=== PATIENT | female | born 1935 | race Caucasian/White ===

== ENCOUNTER 2016-10-21 08:38 | Inpatient (IN) | payer OTHER ==
--- NOTE | 2016-10-21 08:41 | EDPHY ---
H & P HPI/ROS: CHIEF COMPLAINT: LTA+, fall. HISTORY OF PRESENT ILLNESS: The patient is an 86-year-old female anticoagulated on Plavix and baby aspirin who presents via EMS as LTA+ after a mechanical fall this morning. The fall was witnessed by family and they report she was standing at the stove when she crumpled to the ground, striking her head. She did lose consciousness. Per EMS she was A&Ox1 on the way to the hospital. It is unsure if this is different from her baseline mentation. She does not remember the incident. She denies precipitating factors such as dizziness or chest pain. She is complaining of abdominal pain and neck pain. On arrival she is oriented to her name and can follow basic instructions. REVIEW OF SYSTEMS: Patient unable to provide a full review of systems. Source: EMS Exam Limitations: Clinical condition - Medical/Surgical History Other PMH: 1. Parkinson's. 2. Aortic stenosis. 3. Hypertension. 4. Coronary artery disease. 5. Hyperlipidemia. 6. Breast cancer. Surgical history. 1. Bilateral mastectomies with recent surgery for chest wall seroma. 2. Cholecystectomy. 3. Inguinal hernia. 4. TAVR. - Social History Smoking Status: Never smoked Alcohol Use: None Additional Social History: She lives with her . - Physical Exam Exam: General: Cervical collar in place. The patient is in no acute distress. The patient is alert. Bruce Coma Score is 15 . Head: 1cm c-shaped laceration lateral to left eye. Periorbital ecchymoses OS. No Ordoñez's sign. No raccoon eyes. Neck: Tender to palpation over the upper cervical spine. Trachea is midline. Cervical collar left in position. Eyes: PERRLA. EOMI. No subconjunctival hemorrhage. Ears nose and throat: Dry oral mucosa. No hemotympanum. Nares are patent and without clotted nasal blood. No dental injury or malocclusion. Airway is patent. Lungs: Clear anterolaterally. No rib tenderness, crepitus, or subcutaneous emphysema. Breath sounds are equal and audible bilaterally. No wheezes, rales , or rhonchi. Thorax: Nontender to palpation of ribcage, no crepitus. There is a surgical dressing in place covering the right upper anterior chest with a Morgan-Puri drain. Cardiac: Heart has regular rate and rhythm without murmur, rub, or gallop. Abdomen: Soft, nontender, and nondistended. No guarding or rebound. Bowel sounds are present. Back: No vertebral tenderness. Skin: Scattered yellow/blue ecchymoses over both lower extremities. Skin is warm and dry. Extremities: Skin tear to left lateral elbow, no pain with range of motion. No bony point tenderness with evaluation of all 4 extremities, hands, and feet. Pelvis is stable. Hips are nontender. Pulses: 2+ radial, femoral and dorsalis pedis pulses bilaterally. Neuro: The patient is alert and oriented to person. Sensation is intact to light touch over all 4 extremities. Strength is 4+ over 5 with testing of major motor groups. PERRLA. EOMI. Facial expressions symmetric. Hearing intact to spoken voice but she requires a louder than usual speaking voice. Tongue midline. Facial sensation intact to light touch. Shoulder shrug 5/5. Constitutional: Initial Vital Signs Temperature (C) 36.3 C 10/21/16 08:38 Heart Rate 66 10/21/16 08:38 Respiratory Rate 20 10/21/16 08:38 Blood Pressure 133/55 H 10/21/16 08:38 O2 Sat (%) 95 10/21/16 08:38 O2 Delivery Mode Room Air Allergies/Adverse Reactions: vancomycin Allergy (Severe, Verified 08/23/13 21:33) Tingling of mouth/throat Anise *RETIRED-07/04/12 [Anise] Allergy (Mild, Verified 07/31/11 14:27) SICK TO STOMACH mustard [Mustard] Allergy (Mild, Verified 07/31/11 14:27) SICK TO STOMACH diphenhydramine [Diphenhydramine] Allergy (Unknown, Verified 08/23/13 21:33) acetaminophen [From Chlor-Trimeton] Allergy (Verified 08/23/13 21:33) aspirin [Aspirin] Allergy (Verified 08/23/13 21:33) bacitracin [From Neosporin] Allergy (Verified 08/23/13 21:33) bacitracin zinc [From Neosporin] Allergy (Verified 08/23/13 21:33) cefaclor [From Ceclor] Allergy (Verified 08/23/13 21:33) chlorpheniramine [From Chlor-Trimeton] Allergy (Verified 08/23/13 21:33) chlorpheniramine maleate [From Co-Pyronil 2] Allergy (Verified 08/23/13 21:33) epoetin derick [From Epogen] Allergy (Verified 08/23/13 21:33) erythromycin base [Erythromycin Base] Allergy (Verified 08/23/13 21:33) gramicidin D [From Neosporin] Allergy (Verified 08/23/13 21:33) iodine [Iodine] Allergy (Verified 08/23/13 21:33) levofloxacin [From Levaquin] Allergy (Verified 08/23/13 21:33) mepivacaine HCl [From Carbocaine] Allergy (Verified 08/23/13 21:33) metformin HCl [From Glucophage XR] Allergy (Verified 08/23/13 21:33) naproxen [From Naprosyn] Allergy (Verified 08/23/13 21:33) neomycin sulfate [From Neosporin] Allergy (Verified 08/23/13 21:33) omeprazole [From Prilosec] Allergy (Verified 08/23/13 21:33) omeprazole magnesium [From Prilosec] Allergy (Verified 08/23/13 21:33) Penicillins Allergy (Verified 08/23/13 21:33) phenylpropanolamine HCl [From Chlor-Trimeton] Allergy (Verified 08/23/13 21:33) polymyxin B [From Neosporin] Allergy (Verified 08/23/13 21:33) polymyxin B sulfate [From Neosporin] Allergy (Verified 08/23/13 21:33) povidone-iodine [From Betadine] Allergy (Verified 08/23/13 21:33) prazosin HCl [From Minipress] Allergy (Verified 08/23/13 21:33) procaine [Procaine] Allergy (Verified 08/23/13 21:33) procaine HCl [From Novocain] Allergy (Verified 08/23/13 21:33) pseudoephedrine HCl [From Co-Pyronil 2] Allergy (Verified 08/23/13 21:33) soap [From Betadine] Allergy (Verified 08/23/13 21:33) sulfamethoxazole [From Bactrim] Allergy (Verified 08/23/13 21:33) trimethoprim [From Bactrim] Allergy (Verified 08/23/13 21:33) BANANAS Allergy (Severe, Uncoded 07/31/11 14:27) ASTHMA GLUTEN INTOL Allergy (Intermediate, Uncoded 07/31/11 14:30) UNCONTROLLABLE DIARRHEA/ACHE EGGS Allergy (Mild, Uncoded 07/31/11 14:27) ITCH/RED RASH All hyperthyroid medications Allergy (Uncoded 08/30/09 14:11) Home Medications: Medication Instructions Recorded Albuterol [Proventil Neb] 3 ml IH DAILY PRN 10/21/16 Aspirin [Aspirin 81mg (*)] 81 mg PO DAILY 10/21/16 Carbidopa/Levo Cr 25/100Mg 2 tab PO TID 10/21/16 [Sinemet CR 25/100 MG (*)] Carbidopa/Levo Cr 25/100Mg 3 tab PO DAILY 10/21/16 [Sinemet CR 25/100 MG (*)] Cholecalciferol Vit D3 [Vitamin D3 1,000 units PO BID 10/21/16 (*)] Clopidogrel Bisulfate [Clopidogrel] 75 mg PO DAILY 10/21/16 Docusate Sodium [Colace 100 MG (*)] 300 mg PO DAILY 10/21/16 Doxazosin Mesylate [Cardura 1 MG 1 mg PO HS 10/21/16 (*)] Furosemide [Lasix 40 MG (*)] 60 mg PO DAILY 10/21/16 Herbals/Supplements -Info Only 1 ea PO DAILY 10/21/16 Levothyroxine [Synthroid 100 mcg 100 mcg PO DAILY06 10/21/16 (*)] Losartan Potassium [Cozaar 50 mg 50 mg PO DAILY 10/21/16 (*)] Multivitamins [Multivitamin (*)] 1 each PO DAILY 10/21/16 Simvastatin [Zocor] 20 mg PO HS 10/21/16 amLODIPine BESYLATE [Norvasc 10 mg 10 mg PO HS 10/21/16 (*)] metFORMIN HCL [Glucophage 850 mg 850 mg PO BIDMEAL 10/21/16 (*)] Medical Decision Making - Diagnostics EKG Interpretation: The 12 lead EKG was interpreted by myself. See hard copy and/or "tracemaster" electronic copy for interpretation. Sinus rhythm, rate 66. Left bundle branch block. This is unchanged from July 2016. Imaging: Study: CT of the head. Indication: Trauma. Results: Bilateral diffuse intracranial subarachnoid hemorrhage The study was read by the radiologist, Dr. Chaudhry. I viewed the images myself on the PACS system. Study: CT of the cervical spine. Indication: Trauma. Results: No acute processes. The study was read by the radiologist, Dr. Chaudhry. I viewed the images myself on the PACS system. Lumbar spine x-ray negative for acute fracture Pelvic x-ray negative for acute fracture Chest x-ray negative for acute pulmonary disease, rib fracture, pneumothorax. Procedures: Procedure: Laceration repair. Verbal consent was obtained from the patient. The 1cm c-shaped laceration lateral to the left eye was anesthetized with 1% xylocaine. The wound was cleaned with standard ED protocol. There were no deep structures involved. The wound was repaired in single layer technique with five 6-0 Nylon sutures. The wound repair was simple. There was a 2nd superficial linear laceration above the left eyebrow that was revealed when the area was cleaned. This area did not require suturing but was oozing blood. Steri-Strips were applied. These procedures was performed by myself, Dr. Collado. ED Course/Re-evaluation: An IV was established and labs ordered. Head and c-spine CTs ordered. CT scan of the brain reveals bilateral subarachnoid hemorrhage. The patient underwent serial evaluations by me while in the emergency department. She had no deterioration in her neurologic condition, in fact her mental status and orientation improved. At no time did she complain of headache. She continued to be awake and alert. Although she never remembered the accident she was able to provide her name, state that she was in the hospital, and provide the year. She had normal strength throughout. Sensation was intact to light touch over all 4 extremities. Her pupils remained equal and responsive and her facial expressions were symmetric. Family members tell me that she is normally alert and fully oriented. Additional history from her family indicates that this fall was not witnessed. Her heard a noise when she landed on the ground. It is not known whether she had a syncopal episode. Review of her blood work shows that she is anemic with hemoglobin of 8.1 and hematocrit of just over 24. This will likely decrease with intravenous hydration, which she is receiving. As per HPI she is on Plavix and aspirin. She is not complaining of chest pain it seems unlikely that this was a primary cardiac event. Nor she complaining of headache, but aneurysmal subarachnoid hemorrhage is a possibility. Aside from a skin tear on her left elbow and subarachnoid hemorrhage, no other injuries have been identified at this point. 0856: Consulted with Dr. Meza, surgery. He will see the patient in the emergency department. He will be the admitting physician. 0919: Consulted with Dr. Piña, neurosurgery. Platelets requested and have been ordered. Differential Diagnosis: I considered a differential diagnosis of traumatic injury that includes but is not limited to intracranial hemorrhage, skull fracture, concussion, vertebral injury, spinal cord injury, intrathoracic injury, intra-abdominal injury, long bone fractures, contusions, abrasions, and lacerations. Critical Care Time: I, Dr. Emi Collado, personally spent a total of 45 minutes of critical care time including time spent obtaining a history, performing a physical exam, monitoring interventions, collecting and interpreting tests and in discussion with consultants. This does not include time spent performing procedures or physician security assistant time. She was at risk of neurologic deterioration. - Data Points Laboratory Results: Laboratory Results 10/21/16 08:41 10/21/16 08:41 10/21/16 09:00 Patient ABO/Rh O POSITIVE Antibody Screen NEGATIVE Crossmatch IS Only See Detail Medications Given: Discontinued Medications Levetiracetam 1,000 mg/ Sodium (Chloride) 110 mls @ 440 mls/hr IV ONCE ONE Stop: 10/21/16 09:42 Last Admin: 10/21/16 10:15 Dose: 110 mls Departure - Departure Disposition: [facility] Inpatient Acute Clinical Impression: Intracranial hemorrhage Fall Qualifiers: Qualifier Code: (W19.XXXA) Unspecified fall, initial encounter Condition: Fair Report Scribed for: Emi Collado Report Scribed by: Anders Simpson Date of Report: 10/21/16 Time of Report: 08:42
--- NOTE | 2016-10-21 08:59 | CPEKG ---
Heart Rate: 66 RR Interval: 909 P-R Interval: 192 QRSD Interval: 164 QT Interval: 472 QTC Interval: 495 P [place]: 67 QRS [place]: -15 T Wave [place]: 128 EKG Severity - ABNORMAL ECG - EKG Impression: SINUS RHYTHM EKG Impression: PROBABLE LEFT ATRIAL ABNORMALITY EKG Impression: LEFT BUNDLE BRANCH BLOCK Electronically Signed By: Emi Collado 21-Oct-2016 16:10:56
[2016-10-21 09:02] LABS: % IMMATURE GRANULYOCYTES 0.5 % (0.0-1.1); ABSOLUTE IMMATURE GRANULOCYTES 0.04 10^3/uL (0.00-0.10); ADD DIFF? NO; ADD MORPH? NO; ADD SCAN? NO; ATYPICAL LYMPHOCYTE FLAG 0 (0-99); FRAGMENT RBC FLAG 0 (0-99); HEMATOCRIT 24.4 % (38.0-47.0); HEMOGLOBIN 8.1 g/dL (12.6-16.3); LEFT SHIFT FLG 0 (0-99); LIPEMIA HEMOLYSIS FLAG 80 (0-99); MEAN CELL HEMOGLOBIN 34.6 pg (27.9-34.1); MEAN CELL HEMOGLOBIN CONCENTR. 33.2 g/dL (32.4-36.7); MEAN CELL VOLUME 104.3 fL (81.5-99.8); MEAN PLATELET VOLUME 9.6 fL (8.7-11.7); PLATELET CLUMPS FLAG 10 (0-99); PLATELET COUNT 176 10^3/uL (150-400); RED BLOOD CELL COUNT 2.34 10^6/uL (4.18-5.33); RED CELL DISTRIBUTION WIDTH 12.9 % (11.5-15.2)
[2016-10-21 09:12] LABS: ALANINE AMINOTRANSFERASE 25 IU/L (9-52); ALBUMIN 3.3 g/dL (3.5-5.0); ALKALINE PHOSPHATASE 65 IU/L (38-126); ANION GAP 9 mEq/L (8-16); ASPARTATE AMINOTRANSFERASE 28 IU/L (14-46); BILIRUBIN,TOTAL 0.7 mg/dL (0.1-1.4); CALCIUM 9.4 mg/dL (8.5-10.4); CARBON DIOXIDE 26 mEq/l (22-31); CHLORIDE 103 mEq/L (97-110); CREATININE 1.2 mg/dL (0.6-1.0); GLOMERULAR FILTRATION RATE 43; GLUCOSE 167 mg/dL (70-100); POTASSIUM 4.4 mEq/L (3.5-5.2); SODIUM 138 mEq/L (134-144)
--- NOTE | 2016-10-21 09:12 | CT ---
CT Scan of Head (Without Contrast) Clinical Indications: Trauma. Technique: Axial CT images were acquired from foramen magnum through vertex, without intravenous con trast. Soft tissue and bone windows were reviewed on the computer workstation. Images were reconstr ucted down to 1.25 mm images. Dose reduction techniques were utilized. Findings: There is a scalp hematoma over the left lateral scalp. There is diffuse subarachnoid hemorr bhargavi. I see no evidence of an epidural hematoma. There is hyperostosis of the skull without evidence of a skull fracture. The mastoid air cells and middle ear are clear. The sinuses are clear, except fo r complete opacification of the right maxillary sinus. I see no evidence of a facial fracture. Impression: 1. Diffuse subarachnoid hemorrhage. 2. Left scalp hematoma. 3. Left maxillary sinus disease without associated fracture. Critical results relayed by Dr. Chaudhry to Dr. Collado on October 21, 2016 at 0905 hours.
--- NOTE | 2016-10-21 09:13 | CT ---
CT Scan of the Cervical Spine (Without Contrast) Clinical Indications: Trauma. Technique: Thinly collimated multidetector helical CT imaging of the cervical spine was reviewed in multiple planes. Dose reduction techniques were utilized. Findings: No fractures are found. There is mild loss of the normal cervical lordosis. There are mul tilevel degenerative changes. There is bone on bone degenerative disk disease at C5-C6. There is mode rate to severe joint space narrowing at C6-C7. Bilateral facet osteoarthritic changes are present. Th ere is no evidence of acute fracture. Impression: 1. Mild loss of normal cervical lordosis. 2. Moderate to severe degenerative disk disease of the lower cervical spine, as described above. 3. Multilevel facet osteoarthritis. Critical results relayed by Dr. Chaudhry to Dr. Collado on October 21, 2016 at 0900 hours.
[2016-10-21 09:14] LABS: INR 1.11 (0.83-1.16); PROTIME(PATIENT) 14.2 SEC (12.0-15.0)
[2016-10-21] MEDS ORDERED: NALOXONE HCL 0.4 MG/ML INJ IVP PRN (09:28)
[2016-10-21] MEDS ORDERED: ONDANSETRON 4 MG/2 ML VIAL IVP PRN (09:28)
[2016-10-21] MEDS ORDERED: levETIRAcetam 1,000 MG in NS 100 ML IV ONE (09:28)
[2016-10-21] MEDS ORDERED: ACETAMINOPHEN 325 MG TAB PO PRN (09:28)
[2016-10-21] MEDS ORDERED: ALBUTEROL 3 ML DEYVIAL IH PRN (09:47)
--- NOTE | 2016-10-21 09:50 | PDGENHP ---
History and Physical - Chief Complaint fall from standing height with loss of consciousness - History of Present Illness 81 y/o female who fell in her kitchen. Her heard her fall and found her unconscious. She was transported by paramedics as a "limited plus" trauma activation. She has subsequently regained consciousness and reports a mild headache and mild low back pain. History Information - Allergies/Home Medication List Allergies/Adverse Reactions: vancomycin Allergy (Severe, Verified 08/23/13 21:33) Tingling of mouth/throat Anise *RETIRED-07/04/12 [Anise] Allergy (Mild, Verified 07/31/11 14:27) SICK TO STOMACH mustard [Mustard] Allergy (Mild, Verified 07/31/11 14:27) SICK TO STOMACH diphenhydramine [Diphenhydramine] Allergy (Unknown, Verified 08/23/13 21:33) acetaminophen [From Chlor-Trimeton] Allergy (Verified 08/23/13 21:33) aspirin [Aspirin] Allergy (Verified 08/23/13 21:33) bacitracin [From Neosporin] Allergy (Verified 08/23/13 21:33) bacitracin zinc [From Neosporin] Allergy (Verified 08/23/13 21:33) cefaclor [From Ceclor] Allergy (Verified 08/23/13 21:33) chlorpheniramine [From Chlor-Trimeton] Allergy (Verified 08/23/13 21:33) chlorpheniramine maleate [From Co-Pyronil 2] Allergy (Verified 08/23/13 21:33) epoetin derick [From Epogen] Allergy (Verified 08/23/13 21:33) erythromycin base [Erythromycin Base] Allergy (Verified 08/23/13 21:33) gramicidin D [From Neosporin] Allergy (Verified 08/23/13 21:33) iodine [Iodine] Allergy (Verified 08/23/13 21:33) levofloxacin [From Levaquin] Allergy (Verified 08/23/13 21:33) mepivacaine HCl [From Carbocaine] Allergy (Verified 08/23/13 21:33) metformin HCl [From Glucophage XR] Allergy (Verified 08/23/13 21:33) naproxen [From Naprosyn] Allergy (Verified 08/23/13 21:33) neomycin sulfate [From Neosporin] Allergy (Verified 08/23/13 21:33) omeprazole [From Prilosec] Allergy (Verified 08/23/13 21:33) omeprazole magnesium [From Prilosec] Allergy (Verified 08/23/13 21:33) Penicillins Allergy (Verified 08/23/13 21:33) phenylpropanolamine HCl [From Chlor-Trimeton] Allergy (Verified 08/23/13 21:33) polymyxin B [From Neosporin] Allergy (Verified 08/23/13 21:33) polymyxin B sulfate [From Neosporin] Allergy (Verified 08/23/13 21:33) povidone-iodine [From Betadine] Allergy (Verified 08/23/13 21:33) prazosin HCl [From Minipress] Allergy (Verified 08/23/13 21:33) procaine [Procaine] Allergy (Verified 08/23/13 21:33) procaine HCl [From Novocain] Allergy (Verified 08/23/13 21:33) pseudoephedrine HCl [From Co-Pyronil 2] Allergy (Verified 08/23/13 21:33) soap [From Betadine] Allergy (Verified 08/23/13 21:33) sulfamethoxazole [From Bactrim] Allergy (Verified 08/23/13 21:33) trimethoprim [From Bactrim] Allergy (Verified 08/23/13 21:33) BANANAS Allergy (Severe, Uncoded 07/31/11 14:27) ASTHMA GLUTEN INTOL Allergy (Intermediate, Uncoded 07/31/11 14:30) UNCONTROLLABLE DIARRHEA/ACHE EGGS Allergy (Mild, Uncoded 07/31/11 14:27) ITCH/RED RASH All hyperthyroid medications Allergy (Uncoded 08/30/09 14:11) Home Medications: Albuterol [Proventil Neb] 3 ml IH DAILY PRN 10/21/16 [Last Taken 10/20/16] Aspirin [Aspirin 81mg (*)] 81 mg PO DAILY 10/21/16 [Last Taken 10/20/16] Carbidopa/Levo Cr 25/100Mg [Sinemet CR 25/100 MG (*)] 2 tab PO TID 10/21/16 [ Last Taken 10/20/16] Carbidopa/Levo Cr 25/100Mg [Sinemet CR 25/100 MG (*)] 3 tab PO DAILY 10/21/16 [ Last Taken 10/20/16] Cholecalciferol Vit D3 [Vitamin D3 (*)] 1,000 units PO BID 10/21/16 [Last Taken 10/20/16] Clopidogrel Bisulfate [Clopidogrel] 75 mg PO DAILY 10/21/16 [Last Taken 10/20/16 ] Docusate Sodium [Colace 100 MG (*)] 300 mg PO DAILY 10/21/16 [Last Taken ] Doxazosin Mesylate [Cardura 1 MG (*)] 1 mg PO HS 10/21/16 [Last Taken 10/20/16] Furosemide [Lasix 40 MG (*)] 60 mg PO DAILY 10/21/16 [Last Taken 10/20/16] Herbals/Supplements -Info Only 1 ea PO DAILY 10/21/16 [Last Taken Unknown] Levothyroxine [Synthroid 100 mcg (*)] 100 mcg PO DAILY06 10/21/16 [Last Taken ] Losartan Potassium [Cozaar 50 mg (*)] 50 mg PO DAILY 10/21/16 [Last Taken ] Multivitamins [Multivitamin (*)] 1 each PO DAILY 10/21/16 [Last Taken 10/20/16] Simvastatin [Zocor] 20 mg PO HS 10/21/16 [Last Taken 10/20/16] amLODIPine BESYLATE [Norvasc 10 mg (*)] 10 mg PO HS 10/21/16 [Last Taken ] metFORMIN HCL [Glucophage 850 mg (*)] 850 mg PO BIDMEAL 10/21/16 [Last Taken 18:00] I have personally reviewed and updated: medical history, social history, surgical history - Past Medical History coronary artery disease, hypertension, hyperlipidemia Additional medical history: Parkinon's disease, aortic stenosis - Surgical History Reports: cholecystectomy, colectomy, hernia repair, mastectomy (bilateral, most recent in 2012/recent excision of right chest wall seroma with FENG indwelling) - Social History Smoking Status: Never smoked Alcohol Use: None Drug Use: None Additional social history: lives with her Oscar/requests full COR status Review of Systems Constitutional: Reports: recent illness (recent surgery for right chest wall seroma), weakness EENMT: Reports: blurred vision, double vision Cardiac: Reports: chest pain Respiratory: Reports: shortness of breath Gastrointestinal: Reports: black stools, blood streaked stools Genitourinary: Reports: hematuria, incontinence Muscolosketal: Reports: back pain Neurological: Reports: tremors (related to Parkinson's) Hematologic/Lymphatic: Reports: anemia (HCT 26% after recent surgery) Physical Exam Temp Pulse Resp BP Pulse Ox 36.3 C 66 20 133/55 H 95 10/21/16 08:38 10/21/16 08:38 10/21/16 08:38 10/21/16 08:38 10/21/16 08:38 Constitutional: chronically ill appearing, uncomfortable Eyes: PERRL Ears, Nose, Mouth, Throat: ears appear normal, other (no hemotympanum/1 cm lac left lateral orbital area) Peripheral Pulses: 2+: dorsalis-pedis (R), dorsalis-pedis (L), 3+: carotid (R), carotid (L), femoral (R), femoral (L) Respiratory: no respiratory distress, clear to auscultation Gastrointestinal: normoactive bowel sounds, soft, non-tender abdomen Skin: warm, other (right chest wall incision/bandaged with serosanguinous FENG drainage) Musculoskeletal: generalized weakness Neurologic: sensation intact bilaterally, weakness, CN II-XII Intact, other ( amnestic for event/oriented to place and person) Psychiatric: interacting appropriately Lymph, Heme, Immunologic: no cervical LAD, no supraclavicular LAD Lab Data & Imaging Review 10/21/16 08:41 10/21/16 08:41 WBC 7.47 10^3/uL (3.80-9.50) 10/21/16 08:41 RBC 2.34 10^6/uL (4.18-5.33) L 10/21/16 08:41 Hgb 8.1 g/dL (12.6-16.3) L 10/21/16 08:41 POC Hgb 8.2 gm/dL (12.3-15.9) L 10/21/16 08:42 Hct 24.4 % (38.0-47.0) L 10/21/16 08:41 POC Hct 24 % (35.5-47.5) L 10/21/16 08:42 MCV 104.3 fL (81.5-99.8) H 10/21/16 08:41 MCH 34.6 pg (27.9-34.1) H 10/21/16 08:41 MCHC 33.2 g/dL (32.4-36.7) 10/21/16 08:41 RDW 12.9 % (11.5-15.2) 10/21/16 08:41 Plt Count 176 10^3/uL (150-400) 10/21/16 08:41 MPV 9.6 fL (8.7-11.7) 10/21/16 08:41 Neut % (Auto) 78.9 % (39.3-74.2) H 10/21/16 08:41 Lymph % (Auto) 12.6 % (15.0-45.0) L 10/21/16 08:41 [place] % (Auto) 4.8 % (4.5-13.0) 10/21/16 08:41 Eos % (Auto) 2.7 % (0.6-7.6) 10/21/16 08:41 Baso % (Auto) 0.5 % (0.3-1.7) 10/21/16 08:41 Nucleat RBC Rel Count 0.0 % (0.0-0.2) 10/21/16 08:41 Absolute Neuts (auto) 5.89 10^3/uL (1.70-6.50) 10/21/16 08:41 Absolute Lymphs (auto) 0.94 10^3/uL (1.00-3.00) L 10/21/16 08:41 Absolute Monos (auto) 0.36 10^3/uL (0.30-0.80) 10/21/16 08:41 Absolute Eos (auto) 0.20 10^3/uL (0.03-0.40) 10/21/16 08:41 Absolute Basos (auto) 0.04 10^3/uL (0.02-0.10) 10/21/16 08:41 Absolute Nucleated RBC 0.00 10^3/uL (0-0.01) 10/21/16 08:41 Immature Gran % 0.5 % (0.0-1.1) 10/21/16 08:41 Immature Gran # 0.04 10^3/uL (0.00-0.10) 10/21/16 08:41 PT 14.2 SEC (12.0-15.0) 10/21/16 08:41 INR 1.11 (0.83-1.16) 10/21/16 08:41 POC Sodium 139 mEq/L (134-144) 10/21/16 08:42 Sodium 138 mEq/L (134-144) 10/21/16 08:41 POC Potassium 4.2 mEq/L (3.3-5.0) 10/21/16 08:42 Potassium 4.4 mEq/L (3.5-5.2) 10/21/16 08:41 POC Chloride 102 mEq/L (96-108) 10/21/16 08:42 Chloride 103 mEq/L (97-110) 10/21/16 08:41 Carbon Dioxide 26 mEq/l (22-31) 10/21/16 08:41 Anion Gap 9 mEq/L (8-16) 10/21/16 08:41 POC BUN 36 mg/dL (7-23) H 10/21/16 08:42 BUN 40 mg/dL (7-23) H 10/21/16 08:41 Creatinine 1.2 mg/dL (0.6-1.0) H 10/21/16 08:41 POC Creatinine 1.4 mg/dL (0.6-1.2) H 10/21/16 08:42 Estimated GFR 43 10/21/16 08:41 Glucose 167 mg/dL (70-100) H 10/21/16 08:41 POC Glucose 178 mg/dL (70-100) H 10/21/16 08:42 Calcium 9.4 mg/dL (8.5-10.4) 10/21/16 08:41 Total Bilirubin 0.7 mg/dL (0.1-1.4) 10/21/16 08:41 AST 28 IU/L (14-46) 10/21/16 08:41 ALT 25 IU/L (9-52) 10/21/16 08:41 Alkaline Phosphatase 65 IU/L (38-126) 10/21/16 08:41 Total Protein 6.0 g/dL (6.3-8.2) L 10/21/16 08:41 Albumin 3.3 g/dL (3.5-5.0) L 10/21/16 08:41 Patient ABO/Rh O POSITIVE 10/21/16 09:00 Visualized and Interpreted Chest x-ray results: Yes Chest X-Ray results: other (mild cardiomegaly/no fracture or pneumothorax) Visualized and Interpreted EKG results: No Assessment & Plan Assessment: Fall (Acute) Intracranial hemorrhage (Acute) anticoagulation with Plavix/ASA Hx Coronary stent Hx breast cancer with recent excision of mastectomy seroma right chest wall Parkinson's disease Anemia HTN Hypothyroidism Hyperlipidemia Hx Aortic Stenosis Plan: Patient to be admitted to ICU for neuromonitoring neurosurgery aware and has requested 10 units of platlets monitor H/H-will likely need transfusion if Hgb < [address] Radford notified of patient admission for surgical follow up continue prior meds/Hold ASA + Plavix
[2016-10-21] MEDS ORDERED: NS 1,000 ML IV SCH (10:30)
[2016-10-21] MEDS: FAMOTIDINE 20 MG/NACL 50 ML IV SCH ×2 (10:45→23:15)
--- NOTE | 2016-10-21 10:45 | DX ---
Supine AP chest x-ray 0930 hours. History: Right flank bruising after fall. Findings: Comparison to August 10, 2014. Heart size remains mildly enlarged. Pulmonary vasculature is mildly prominent centrally. There is no new consolidation, effusion, or pneumothorax. [place] are seen over the right chest wall as well as a drain in place. Cardiac stent as well as coronary stent are noted. Arteriosclerotic calcification is stable at the aortic arch level. No fractures are appreciated. Moderate degenerative changes are see n about the shoulder joints stable in appearance. Impression: 1. No active cardio pulmonary disease seen. 2. No evidence of acute fracture about the chest. 3. Stable mild cardiomegaly with left coronary stent as well as cardiac stent in place.
--- NOTE | 2016-10-21 10:46 | DX ---
Supine pelvis 0932 hours. History: Recent fall. Pain. Findings: Osseous structures appear to be intact without evidence of fracture. Hip joint spaces are r elatively well-maintained. SI joints and symphysis also appear to be normal. There are no lytic or sc lerotic osseous lesions. Soft tissues are unremarkable. Impression: 1. No acute fracture seen about the pelvis.
--- NOTE | 2016-10-21 10:51 | DX ---
Lumbar spine AP lateral 0935 hours. History: Mid back tenderness after fall. Findings: Vertebral body heights are well-maintained. There is about 4 mm of anterior subluxation of L3 on L4. No additional subluxations are appreciated. Mild intervertebral disk space narrowing is pre sent from L1-L2 through L4-L5 with associated marginal osteophytes. Mild facet hypertrophy is suspect ed mid to lower lumbar spine. There are no lytic or sclerotic osseous lesions. No fractures are ident ified. Bowel anastomotic sutures are noted projected over the right upper iliac fossa. Moderate ather osclerotic calcifications are present. Impression: 1. No acute osseous abnormality appreciated of the lumbar spine. 2. Mild degenerative disk disease mid lumbar spine with associated marginal osteophytes. 3. Mild facet hypertrophy lower lumbar spine. 4. Incidental 4 mm of anterior subluxation of L3 on L4. This is probably related to facet hypertrophy .
[2016-10-21] MEDS ORDERED: FAMOTIDINE 20 MG/NACL/50 ML BAG IV ONE (10:54)
--- NOTE | 2016-10-21 11:46 | CT ---
CT Brain Without Contrast 1128 hours History: Followup intracranial hemorrhage.. Technique: Axial computed tomographic images of the brain without contrast. Images were reconstruct ed down to 1.25 mm slice thickness. Dose reduction techniques were utilized. Comparison prior study from October 21, 2016. Findings: Moderate subarachnoid hemorrhage is once again seen over the frontal and parietal lobes bi laterally left side more than right as well as over the left lateral temporal lobe with some decrease in subarachnoid hemorrhage over the basal cisterns since the prior study. No intraventricular hemorr bhargavi or intraparenchymal hemorrhage is seen. There are no subdural collections. Ventricles, cisterns, and sulci are widened consistent with stable mild atrophy. No hydrocephalus, ma sses, or midline shift/herniation. Stable mild to moderate hypodensities are seen in the white matter of bilateral cerebral hemispheres. There is no acute peripheral cerebral infarct seen. Arterioscle rotic calcifications are noted associated with distal ICA in the parasellar location bilaterally. Bone windows demonstrate no displaced fractures. There is stable heterogeneous partially calcified and material in the right maxillary sinus. The [place] of the paranasal sinuses remain clear as well as mastoid air cells. Impression: 1. Stable mild age related atrophy. 2. Subarachnoid hemorrhage in a stable distribution over the frontal and parietal lobes slightly more prominent on the left as well as over the left temporal lobe. Consider CT angiogram of the [place] at some point to evaluate for possible aneurysm. 3. Mild to moderate stable nonspecific hypodensities in the white matter of bilateral cerebral hemisp heres. Differential diagnosis includes microvascular ischemic disease, post-infectious/post-inflammat ory sequela, atypical demyelinating disease, or migraine-related sequela. 4. Stable complex right maxillary sinus disease.
[2016-10-21 12:59] LABS: HEMATOCRIT 22.3 % (38.0-47.0); HEMOGLOBIN 7.4 g/dL (12.6-16.3)
--- NOTE | 2016-10-21 14:40 | GCON ---
[f rep st] CONSULTATION NEUROSURGERY CONSULTATION CHIEF COMPLAINT: Fall with loss of consciousness. HISTORY OF PRESENT ILLNESS: The patient is an 81-year-old female patient who fell in her kitchen. Her states that he was in the room and heard a loud thud and found her on the floor unconscious. She was transported to the emergency room. Patient regained consciousness while in the emergency room. The patient was complaining of headache and also some slight posterior neck pain. She had a rigid cervical collar on. She denied any numbness or tingling. No nausea, vomiting, or other associated symptoms. Much of the patient's medical information is obtained from the medical record. ALLERGIES: Vancomycin, anise, mustard, Benadryl, acetaminophen, aspirin, bacitracin, cefaclor, chlorpheniramine, Epogen, erythromycin, gramicidin D from Neosporin, iodine, Levaquin, mepivacaine, metformin, naproxen, neomycin, omeprazole, penicillin, polymyxin B from Neosporin, polymyxin B sulfate, iodine , Minipress, procaine, pseudoephedrine, soap, sulfa, Bactrim, bananas, gluten, eggs, all hyperthyroid medications. HOME MEDICATIONS: Include albuterol, aspirin, carbidopa/levodopa, vitamin D3, Clopidogrel, docusate, doxazosin, Lasix, herbals, levothyroxine, losartan, multivitamin, simvastatin, amlodipine, metformin. PAST MEDICAL HISTORY: Significant for coronary artery disease, hypertension, hyperlipidemia, Parkinson disease, aortic stenosis. SURGICAL HISTORY: Cholecystectomy, colectomy, hernia repair, mastectomy. SOCIAL HISTORY: The patient is a nonsmoker. Does not drink alcohol. She lives at home with her . No drug use. REVIEW OF SYSTEMS: Please see above mentioned in the HPI. PHYSICAL EXAMINATION: VITAL SIGNS: Blood pressure 122/53, heart rate 67, respirations 16, O2 sat 96% on room air. Temperature is 36.8. GENERAL: This is a well-developed, well-nourished, elderly female patient in no acute distress. She is lying on a stretcher in the trauma room. She has a trauma cervical collar in place. She moves all extremities independently. NEUROLOGIC : Cranial nerves 2-12 are grossly intact. Patient's eyes are PERRLA. Her extraocular movements are intact. Sclerae are anicteric. She has intact sensation over her face. Her facial movements are symmetric, no facial droop noted. Her tongue protrudes midline. Her palate and uvula elevate symmetrically. She has intact hearing to conversation. She has a symmetric shoulder shrug bilaterally. Motor examination of bilateral upper extremities is 5/5 for deltoid, triceps, biceps, and hand substance abuse nurse and also 5/5 for bilateral lower extremities including hip flexion, flexion and extension of the knee and plantar and dorsiflexion. She has intact sensation throughout the normal dermatomal distribution of her body. LABORATORY: White blood cells 7.4, red blood cells 2.3, hemoglobin 8, hematocrit 24, MCV 104, MCH 34, RDW 12.9, platelet count 176. PT 14.2. INR 1.11. Sodium 139, potassium 4.2, chloride 102, carbon dioxide 26, anion gap 9, BUN 36, creatinine 1.4, GFR 43, glucose 178. IMAGING: Cervical spine CT: Mild loss of normal cervical lordosis. Moderate to severe degenerative disc disease of the lower cervical spine as described above. Multilevel facet osteoarthritis. Head CT without contrast from 8:43 am: Diffuse subarachnoid hemorrhage. Left scalp hematoma. Left maxillary sinus disease without associated fracture. EKG: Sinus rhythm, probable left atrial abnormality left bundle branch block. Chest x-ray: No active cardiopulmonary disease. Seen no evidence of acute fracture about the chest. Stable mild cardiomegaly with left coronary stent as well as cardiac stents in place. Lumbar spine x-ray: No acute osseous abnormality appreciated in the lumbar spine. Mild degenerative disc disease mid lumbar spine with associated marginal osteophytes, mild facet hypertrophy lower lumbar spine, and incidental 4 mm of anterior subluxation of L3 on L4. This is probably related to facet hypertrophy. Pelvis x-ray: No acute fracture seen about the pelvis. Repeat head CT at 11:00 am: Stable mild age-related atrophy. Subarachnoid hemorrhage in a stable distribution over the frontal and parietal lobes slightly more prominent on the left as well as over the left temporal lobe. Consider CT angiogram of the [place] at some point to evaluate for possible aneurysm. [id number] stable nonspecific hypodensities in the white matter of bilateral cerebral hemispheres. Differential diagnosis includes microvascular ischemic disease, postinfectious/postinflammatory sequela , atypical demyelinating disease or migraine related sequelae, stable complex right maxillary sinus disease. IMPRESSION: This is an 81-year-old female patient status post fall at home with loss of consciousness with subarachnoid hemorrhage noted on CT. PLAN: I have seen the patient with Dr. Miller in the emergency room at approximately 9:30 am today. At that time, we recommended she undergo a repeat head CT at 11 am which we have now reviewed and appears stable. Given the patient's use of Plavix and aspirin, she was given 1 pack of platelets. With her stents, we would not want to fully anticoagulate her but at this time would continue to monitor her. We will work towards being able to clear her cervical spine. She did have some tenderness to palpation over her cervical spine so held off on removing the collar. Would have the patient undergo physical therapy, occupational therapy, and also speech therapy. I will discuss further with Dr. Miller if he would like any additional scans performed. No plan for any additional scans at this time unless patient has a change in mental status. Continue neurologic checks. Please contact the neurosurgery service for any additional questions or concerns. /[id number]/MODL MTDD
[2016-10-21] MEDS ORDERED: D50W 25 GM/50 ML SYR IVP PRN ×2 (15:19→15:20)
--- NOTE | 2016-10-21 15:45 | GCON ---
[f rep st] CONSULTATION CRITICAL CARE CONSULTATION DATE OF CONSULTATION: 10/21/2016 REFERRING PHYSICIAN: Rajiv Meza MD CHIEF COMPLAINT: Fall. HISTORY OF PRESENT ILLNESS: This 81-year-old female fell in her kitchen and she was unconscious when her found her. She was seen in the emergency room by Neurosurgery and the trauma surgeon josh shine the emergency room doctor. She awakened in the emergency room, but has been confused. The nurse r eports that she was able to answer some simple questions, such as her name but with me, she would jus t say "yes" and "I guess so." So therefore, it is very hard to evaluate whether she is having signif icant pain. She does not appear to have any significant discomfort at the time that I talked to her. After I examined her, the patient's and son did arrive, and said that she is normally up at home and quite active without much restriction. She had a TAVR procedure in [facility] in [facility] and has been on anticoagulants since then. PAST MEDICAL HISTORY: 1. Coronary artery disease. 2. Hypertension. 3. Hyperlipidemia. PAST SURGICAL HISTORY: 1. TAVR as noted above. 2. Cholecystectomy. 3. Colectomy. 4. Hernia repair. 5. Bilateral mastectomies. ALLERGIES: To medications are extremely extensive and listed in the chart. MEDICATIONS: At home include albuterol, aspirin, carbidopa/levodopa, cholecalciferol, clopidogrel, C olace, Cardura, Lasix, herbs and supplements, Synthroid, Cozaar, multivitamins, Zocor, amlodipine, an d metformin. SOCIAL HISTORY: The patient has never smoked tobacco, drank excessive alcohol, or used any illicit d rugs. FAMILY HISTORY: Without diabetes mellitus or early arteriosclerotic vascular disease. REVIEW OF SYSTEMS: x11 points is otherwise negative. PHYSICAL EXAMINATION: GENERAL: The patient is confused and uses only 1 or 2 word answers that are i ncorrect when I question her. VITAL SIGNS: Blood pressure is 122/53 with a pulse of 67, respiratory rate of 16, oxygen saturation 96% on room air, and she is afebrile. SKIN: Normal. HEAD: There is an ecchymosis over her left eye. EYES: Fundi not visualized. EARS: Canals clear. Tympanic membr anes intact. NOSE: Without septal deviation. No polyps. MOUTH AND PHARYNX: Clear without lesions . NECK: Supple without adenopathy. No jugular venous distention. Thyroid is normal. CHEST: Michelle r to auscultation and percussion. HEART: PMI in the 5th intercostal space, midclavicular line. S1 and S2 are normal. There is no S3, S4, or murmur. ABDOMEN: Soft without organomegaly or masses. T here is no tenderness. EXTREMITIES: Full range of motion without clubbing, cyanosis, or peripheral edema. There is a right chest wall incision that is bandaged with a FENG coming from the right chest w all, presumably from her previous breast surgery. DATA REVIEWED: Head CT scan shows a subarachnoid hemorrhage in the frontal and parietal lobes, sligh tly greater on the left than the right. There are also some changes of atrophy present. The white b lood count is 7470 with an initial hematocrit of 24 that has decreased slightly to 22, platelet count is 176,000. INR is 1.1. Chemistry panel shows a very slightly high creatinine of 1.4 with a blood sugar of 178. IMPRESSION: Subarachnoid hemorrhage from a fall. It is unclear to me at this point whether this was mechanical or might have been related to hemodynamics. Patient is on aspirin and clopidogrel for he r TAVR. Will need to consider whether that can be continued but certainly, it is being held at the p resent time. She is also on oral medications for blood pressure and her Parkinson's, and she is havi ng a speech Therapy evaluation to see if she can swallow. If not, will probably keep her n.p.o. over night and then consider putting an NG tube down in the morning for her oral medications. She has had a platelet transfusion and is getting a blood transfusion now, and her chemistries and CBC will be f erin. /[id number]/MODL
[2016-10-21] MEDS: CARBIDOPA/LEVO CR 25 MG/100 MG TAB PO SCH ×2 (16:28→23:31)
[2016-10-21] MEDS: INSULIN REGULAR HUMAN 100 UNIT/ML SC SCH ×2 (17:25→23:31)
[2016-10-21] MEDS ORDERED: ATORVASTATIN CALCIUM 10 MG TAB PO SCH (21:00)
[2016-10-21 23:22] LABS: HEMATOCRIT 26.4 % (38.0-47.0); HEMOGLOBIN 8.9 g/dL (12.6-16.3)
[2016-10-21] MEDS: DOXAZOSIN MESYLATE 1 MG TAB PO SCH (23:31)
[2016-10-22 05:30] LABS: % IMMATURE GRANULYOCYTES 0.4 % (0.0-1.1); ABSOLUTE IMMATURE GRANULOCYTES 0.03 10^3/uL (0.00-0.10); ADD DIFF? NO; ADD MORPH? NO; ADD SCAN? NO; ATYPICAL LYMPHOCYTE FLAG 0 (0-99); FRAGMENT RBC FLAG 0 (0-99); HEMOGLOBIN 8.5 g/dL (12.6-16.3); LEFT SHIFT FLG 0 (0-99); LIPEMIA HEMOLYSIS FLAG 80 (0-99); MEAN CELL HEMOGLOBIN 32.4 pg (27.9-34.1); MEAN CELL HEMOGLOBIN CONCENTR. 32.7 g/dL (32.4-36.7); MEAN CELL VOLUME 99.2 fL (81.5-99.8); MEAN PLATELET VOLUME 9.4 fL (8.7-11.7); PLATELET CLUMPS FLAG 0 (0-99); PLATELET COUNT 189 10^3/uL (150-400); RED BLOOD CELL COUNT 2.62 10^6/uL (4.18-5.33); RED CELL DISTRIBUTION WIDTH 15.9 % (11.5-15.2)
[2016-10-22 05:31] LABS: ANION GAP 7 mEq/L (8-16); CALCIUM 8.7 mg/dL (8.5-10.4); CARBON DIOXIDE 25 mEq/l (22-31); CHLORIDE 107 mEq/L (97-110); CREATININE 0.9 mg/dL (0.6-1.0); GLOMERULAR FILTRATION RATE > 60; GLUCOSE 110 mg/dL (70-100); POTASSIUM 3.3 mEq/L (3.5-5.2); SODIUM 139 mEq/L (134-144)
[2016-10-22] MEDS: LEVOTHYROXINE 100 MCG TAB PO SCH (06:23)
--- NOTE | 2016-10-22 07:33 | NEUSURGPN ---
Assessment/Plan: 81 yo female status post fall from standing position with +LOC and diffuse TSAH currently confused and trying to get out of bed. SHe is in a abdominal agustina Plan: Will obtain CTHead now. I discussed this with Dr. Miller this AM Continue agustina Subjective: awake and confused, trying to get out of bed. Will not follow commands, but verbalizes that she wants to get up. Objective: Neuro: PERRLA, speech garbled a bit Equal strength in arms and is able to swing legs over the bed railing. Urinary Catheter in Place: No - Physician Discussed Patient with : Angela Neurosurgery Physical Exam - Vitals, I&O, Labs I and O 10/21/16 10/22/16 10/23/16 05:59 05:59 05:59 Intake Total 3514 Output Total 30 Balance 3484 Weight 57 kg Intake: Oral (ml) 0 IV Intake (ml) 50 IV Infused (ml) 3114 Ns 1,000 ml @ 100 mls/hr 1604 IV CONT JAXON Rx#: [id number] Platelets (ml) 350 Output: Wound Drainage (ml) 30 Right Breast Morgan 30 Puri Other: Number of Voids Bedpan 1 Diapers/Briefs 1 Vital Signs Temp Pulse Resp BP Pulse Ox 36.6 C 73 17 156/57 H 96 10/22/16 00:00 10/22/16 06:00 10/22/16 06:00 10/22/16 06:00 10/22/16 06:00 Laboratory Results 10/22/16 04:57 10/22/16 04:57 ICD10 Worksheet Patient Problems: Problems Problem Status Diagnosed Fall Acute Intracranial hemorrhage Acute Aortic sclerosis Acute Aortic stenosis Acute Breast CA Acute Parkinsons disease Acute
--- NOTE | 2016-10-22 08:48 | CT ---
CT Scan of Head (Without Contrast) Clinical Indications: Follow up subarachnoid hemorrhage. Traumatic injury. Comparison: October 21, 2016. Technique: Axial CT images were acquired from foramen magnum through vertex, without intravenous con trast. Soft tissue and bone windows were reviewed on the computer workstation. Images were reconstr ucted down to 1.25 mm images. Dose reduction techniques were utilized. Findings: More apparent on today's examination is an area of intraparenchymal hemorrhage with contus ion in the temporal lobe measuring 14 x 16 mm with surrounding edema. On the same side, there is anot her area of parenchymal contusion that is more obvious on today's examination in the parietal lobe me asuring 11 x 13 mm. There is a small amount of surrounding edema. Persistent subarachnoid hemorrhage is present slightly improved. There is no midline shift. Ventricular size remains within normal limits. There is mild volume loss. There is no fracture. Right maxillary sinus disease is again noted. Soft tissue swelling is noted on the site of injury erica ng the left scalp. Impression: Intraparenchymal contusions with hemorrhage. As the subarachnoid hemorrhage resolves, th e intraparenchymal contusions with hemorrhage become more apparent compared to one day prior. Recomme nd continued interval follow up. Results relayed by Dr. Chaudhry to [place], on October 22, 2016 at 0841 hours.
[2016-10-22] MEDS ORDERED: CARBIDOPA/LEVO CR 25 MG/100 MG TAB PO SCH (09:00)
[2016-10-22] MEDS: INSULIN REGULAR HUMAN 100 UNIT/ML SC SCH ×3 (09:51→17:37)
[2016-10-22] MEDS ORDERED: PROTOCOL POTASSIUM 1 DOSE MISC PRN (09:58)
[2016-10-22] MEDS ORDERED: LABETALOL HCL 5 MG/ML 20 ML MDV IVP ONE (10:00)
[2016-10-22] MEDS: FAMOTIDINE 20 MG/NACL 50 ML IV SCH ×2 (10:41→21:47)
[2016-10-22] MEDS: LOSARTAN POTASSIUM 50 MG TAB PO SCH (10:50)
[2016-10-22] MEDS: FUROSEMIDE 40 MG TAB PO SCH (10:56)
[2016-10-22] MEDS: ATORVASTATIN CALCIUM 20 MG TAB PO SCH (10:56)
[2016-10-22] MEDS ORDERED: POTASSIUM CL 10 MEQ TAB PO ONE ×2 (10:57→18:53)
[2016-10-22] MEDS: CARBIDOPA/LEVO CR 25 MG/100 MG TAB PO SCH ×4 (11:28→23:13)
[2016-10-22] MEDS: LABETALOL HCL 5 MG/ML 20 ML MDV IVP PRN ×3 (12:39→22:22)
--- NOTE | 2016-10-22 12:47 | PDINTPN ---
Deputy General Counsel Progress Note Assessment/Plan: Assessment: #SAH fairly extensive, stable on repeat CT. There is still a question if this was an aneurysmal bleed #HTN. Her BP has been running high, just started back on her oral meds and had a dose of labetalol #Parkinsons #CAD #TAVR in July 2016 Plan: Probably needs a CTA of her head to look for an aneurysm Restarting oral feedings and meds Add Enalapril to Labetalol for BP control 10/22/16 12:48 Subjective: confused Objective: Vital Signs Temp Pulse Resp BP Pulse Ox 36.6 C 71 19 158/59 H 95 10/22/16 00:00 10/22/16 12:39 10/22/16 12:00 10/22/16 12:39 10/22/16 12:00 Laboratory Results 10/22/16 04:57 10/22/16 04:57 10/21/16 10/22/16 10/23/16 05:59 05:59 05:59 Intake Total 3514 Output Total 30 Balance 3484 PT 14.2 SEC (12.0-15.0) 10/21/16 08:41 INR 1.11 (0.83-1.16) 10/21/16 08:41 Physical Exam - Physical Exam General Appearance: no apparent distress EENT: normal ENT inspection Neck: non-tender Respiratory: lungs clear Cardiac/Chest: regular rate, rhythm Abdomen: non-tender, soft Back: Normal inspection Skin: warm/dry Lymphatic: no adenopathy Extremities: non-tender, No pedal edema Neuro/Psych: cognition abnormalities ICD10 Worksheet Patient Problems: Problems Problem Status Diagnosed Fall Acute Intracranial hemorrhage Acute Aortic sclerosis Acute Aortic stenosis Acute Breast CA Acute Parkinsons disease Acute
--- NOTE | 2016-10-22 13:18 | SOAPPROG ---
SOAP Progress Note Assessment/Plan: Assessment: 81yo female s/p syncope resulting in SAH, ?aneurysm, recent left chest surgery ( excision of seroma), Parkinsons, CAD, s/p TAVR fall 2016 PE lethargic Chest CTA B/L, FENG right chest with approx 30cc/12hrs abdomen soft nontender CT stable SAH Plan: may need CTA head to evaluate for possible aneurysm will leave FENG drain in for now, will recheck output over next few days saw pt with Dr Radford 10/22/16 13:14 Objective: Vital Signs Temp Pulse Resp BP Pulse Ox 36.6 C 71 19 158/59 H 95 10/22/16 00:00 10/22/16 12:39 10/22/16 12:00 10/22/16 12:39 10/22/16 12:00 Laboratory Results 10/22/16 04:57 10/22/16 04:57 10/21/16 10/22/16 10/23/16 05:59 05:59 05:59 Intake Total 3514 Output Total 30 Balance 3484 PT 14.2 SEC (12.0-15.0) 10/21/16 08:41 INR 1.11 (0.83-1.16) 10/21/16 08:41 ICD10 Worksheet Patient Problems: Problems Problem Status Diagnosed Fall Acute Intracranial hemorrhage Acute Aortic sclerosis Acute Aortic stenosis Acute Breast CA Acute Parkinsons disease Acute
[2016-10-22] MEDS: ENALAPRILAT DIHYDRATE 1.25 MG/ML VIAL IVP PRN ×2 (13:32→23:16)
[2016-10-22 18:39] LABS: POTASSIUM 3.3 mEq/L (3.5-5.2)
[2016-10-22] MEDS ORDERED: POTASSIUM CL 10 MEQ TAB ONE (18:51)
[2016-10-22] MEDS ORDERED: POTASSIUM CL 20 MEQ TAB ONE (18:51)
[2016-10-22] MEDS: DOXAZOSIN MESYLATE 1 MG TAB PO SCH (23:13)
[2016-10-23] MEDS: DEXMEDETOMIDINE HCL 400 MCG in NS 100 ML IV SCH ×2 (00:29→05:37)
[2016-10-23] MEDS: INSULIN REGULAR HUMAN 100 UNIT/ML SC SCH ×5 (00:55→20:37)
[2016-10-23] MEDS: LABETALOL HCL 5 MG/ML 20 ML MDV IVP PRN ×2 (01:39→06:20)
[2016-10-23] MEDS: ENALAPRILAT DIHYDRATE 1.25 MG/ML VIAL IVP PRN (05:01)
[2016-10-23 05:34] LABS: POTASSIUM 3.4 mEq/L (3.5-5.2)
[2016-10-23] MEDS ORDERED: niCARdipine/NACL 200 ML IV SCH (08:00)
--- NOTE | 2016-10-23 09:07 | PDINTPN ---
Scientific Research Associate Progress Note Assessment/Plan: Assessment: #SAH fairly extensive, stable on repeat CT. Dr Jordin feels this was not an aneurysm but a bleed from her fall. She still has expressive and receptive aphasia but is much more alert and smiling #HTN. Her BP has been running high, just started back on her oral meds and was started on IV Nicardipine #Parkinsons #CAD #TAVR in July 2016 Plan: Increase losartan PO Restarting oral feedings and Parkinsons and BP meds Add Enalapril IV prn to Labetalol for BP control 10/23/16 09:05 Subjective: Confused Objective: Vital Signs Temp Pulse Resp BP Pulse Ox 36.5 C 63 17 156/59 H 95 10/22/16 20:00 10/23/16 08:00 10/23/16 08:00 10/23/16 08:00 10/23/16 08:00 Laboratory Results 10/22/16 04:57 10/23/16 05:00 10/22/16 10/23/16 10/24/16 05:59 05:59 05:59 Intake Total 3514 2756 Output Total 30 400 Balance 3484 2756 -400 PT 14.2 SEC (12.0-15.0) 10/21/16 08:41 INR 1.11 (0.83-1.16) 10/21/16 08:41 Physical Exam - Physical Exam General Appearance: no apparent distress EENT: normal ENT inspection Neck: non-tender Respiratory: lungs clear Cardiac/Chest: regular rate, rhythm Abdomen: non-tender, soft Back: Normal inspection Skin: warm/dry Lymphatic: no adenopathy Extremities: non-tender, No pedal edema Neuro/Psych: cognition abnormalities ICD10 Worksheet Patient Problems: Problems Problem Status Diagnosed Fall Acute Intracranial hemorrhage Acute Aortic sclerosis Acute Aortic stenosis Acute Breast CA Acute Parkinsons disease Acute
--- NOTE | 2016-10-23 09:17 | CT ---
CT Brain (Without Contrast) 0804 hours History: Multiple intraparenchymal hemorrhages, follow up. Comparison: CT October 22, 2016. Technique: Axial computed tomographic images of the brain without contrast. Dose reduction techniques were utilized. Findings: Multiple bilateral intraparenchymal and subarachnoid hemorrhages are again noted with mini mal improvement. Right quadrigeminal plate subarachnoid hemorrhage measuring 18 x 13 mm appears sligh tly smaller. Left posterior temporal parasylvian 16 x 17 mm intraparenchymal hemorrhage appears uncha nged. Multiple bilateral frontal, parietal, occipital, and temporal subarachnoid hemorrhages are agai n noted similar to previous studies. The left posterior parafalcine subarachnoid hemorrhage also appe ars similar. No new foci of hemorrhage. No definite acute infarct. No midline shift, herniation, or h ydrocephalus. Severe right maxillary sinusitis with complete opacification. Ventricles, cisterns, and sulci are widened consistent with atrophy. Cerebrovascular atherosclerosis. Hypodensities in the white matter of bilateral cerebral hemispheres. Bone windows demonstrate no di splaced fractures. Impression: 1. Multiple bilateral intraparenchymal and subarachnoid hemorrhages with minimal improvement. No defi nite new foci of acute hemorrhage. 2. No hydrocephalus, or mass effect. 3. Cerebrovascular atherosclerosis. 4. No definite acute infarct. 5. Atrophy with moderate microvascular ischemic gliosis.
[2016-10-23] MEDS: LEVOTHYROXINE 100 MCG TAB PO SCH (09:52)
[2016-10-23] MEDS: FUROSEMIDE 40 MG TAB PO SCH (09:52)
[2016-10-23] MEDS: LOSARTAN POTASSIUM 25 MG TAB PO SCH (09:52)
[2016-10-23] MEDS: ATORVASTATIN CALCIUM 20 MG TAB PO SCH (09:53)
[2016-10-23] MEDS: CARBIDOPA/LEVO CR 25 MG/100 MG TAB PO SCH ×4 (09:53→22:59)
[2016-10-23] MEDS: FAMOTIDINE 20 MG/NACL 50 ML IV SCH ×2 (09:54→21:06)
--- NOTE | 2016-10-23 11:06 | NEUSURGPN ---
Assessment/Plan: 81 yo female status post fall from standing position with +LOC and diffuse TSAH stable on CTs agitated overnight and Precedex started with good results ongoing expressive aphasia CTH today stable Pt was seen and examined today by Dr. Jordin Morenoene started for BP control Plan: MRI brain MRA head/neck Discussed plan with Dr. Brenner and Dr. Miller Subjective: Pt awake and able to mimic gestures this AM, unable to follow oral commands Agitated ovenight. Objective: NEURO: PERRLA, EOMI, mimics gestures but unable to follow oral commands, moves all extremities spontaneously expressive aphasia Urinary Catheter in Place: Yes Urinary Catheter Indication: Other (Use Comment) (neurologic deficits requiring muhammad) Catheter Insertion Date: 10/23/16 - Physician Discussed Patient with : Angela Neurosurgery Physical Exam - Vitals, I&O, Labs I and O 10/22/16 10/23/16 10/24/16 05:59 05:59 05:59 Intake Total 3514 2756 Output Total 30 400 Balance 3484 2756 -400 Weight 57 kg Intake: Oral (ml) 0 300 IV Intake (ml) 50 IV Infused (ml) 3114 2456 Ns 1,000 ml @ 100 mls/hr 1604 2394 IV CONT JAXON Rx#: [id number] Dexmedetomidine HCl 400 62 mcg In Ns 100 ml @ Per Protocol IV CONT JAXON Rx#: [id number] Platelets (ml) 350 Output: Urine (ml) 400 Catheter 400 Wound Drainage (ml) 30 Right Breast Morgan 30 Puri Other: Number of Voids Bedpan 1 Diapers/Briefs 1 2 Vital Signs Temp Pulse Resp BP Pulse Ox 36.5 C 70 20 135/49 H 95 10/22/16 20:00 10/23/16 10:00 10/23/16 10:00 10/23/16 10:00 10/23/16 10:00 Laboratory Results 10/22/16 04:57 10/23/16 05:00 ICD10 Worksheet Patient Problems: Problems Problem Status Diagnosed Fall Acute Intracranial hemorrhage Acute Aortic sclerosis Acute Aortic stenosis Acute Breast CA Acute Parkinsons disease Acute
--- NOTE | 2016-10-23 12:03 | TRAUMAPN ---
- Problem/Surgery Performed (1) Intracranial hemorrhage Assessment/Plan: diffuse but relatively stable SAH on repeat imaging NSG recommending MRI/MRA today continue serial exams/neuro checks (2) Breast CA Assessment/Plan: continue FENG drain s/p excision of seroma cavity Subjective: just finished working with PT Objective: Vital Signs Temp Pulse Resp BP Pulse Ox 36.5 C 70 20 135/49 H 95 10/22/16 20:00 10/23/16 10:00 10/23/16 10:00 10/23/16 10:00 10/23/16 10:00 Laboratory Results 10/22/16 04:57 10/23/16 05:00 10/22/16 10/23/16 10/24/16 05:59 05:59 05:59 Intake Total 3514 2756 Output Total 30 400 Balance 3484 2756 -400 PT 14.2 SEC (12.0-15.0) 10/21/16 08:41 INR 1.11 (0.83-1.16) 10/21/16 08:41 Physical Exam - Physical Exam General Appearance: other (nonverbal for me this morning) Neck: other (in [place] J collar) Respiratory: lungs clear Cardiac/Chest: regular rate, rhythm Abdomen: non-tender, soft
[2016-10-23] MEDS: LOSARTAN POTASSIUM 50 MG TAB PO SCH (19:20)
[2016-10-23] MEDS ORDERED: POTASSIUM CL 10 MEQ TAB PO ONE (20:19)
[2016-10-23] MEDS: DOXAZOSIN MESYLATE 1 MG TAB PO SCH (21:07)
[2016-10-24 05:03] LABS: POTASSIUM 3.3 mEq/L (3.5-5.2)
[2016-10-24] MEDS ORDERED: POTASSIUM CL 10 MEQ TAB PO ONE ×2 (05:56→19:19)
[2016-10-24] MEDS: LEVOTHYROXINE 100 MCG TAB PO SCH (06:06)
[2016-10-24] MEDS: CARBIDOPA/LEVO CR 25 MG/100 MG TAB PO SCH ×5 (06:06→23:05)
--- NOTE | 2016-10-24 07:52 | NEUSURGPN ---
Assessment/Plan: 81 yo female status post fall from standing position with +LOC and diffuse TSAH stable on CTs, did well on the floor overnight ongoing expressive aphasia CTH stable on 10/22 and 10/23 PT/OT/COUPLER Will continue to monitor Exam stable as compared to yesterday Discussed plan with Dr. Miller Subjective: unable to obtain fully due to expressive aphasia, denied any pain Objective: Awake, alert. MAEx4. Is not obeying commands Catheter Insertion Date: 10/23/16 - Physician Discussed Patient with : Angela Neurosurgery Physical Exam - Vitals, I&O, Labs I and O 10/23/16 10/24/16 10/25/16 05:59 05:59 05:59 Intake Total 2756 1428 Output Total 2650 Balance 2756 -1222 Intake: Oral (ml) 300 400 IV Infused (ml) 2456 1028 Ns 1,000 ml @ 100 mls/hr 2394 1028 IV CONT JAXON Rx#: [id number] Dexmedetomidine HCl 400 62 mcg In Ns 100 ml @ Per Protocol IV CONT JAXON Rx#: [id number] Output: Urine (ml) 2650 Catheter 2650 Other: Number of Voids Diapers/Briefs 2 Catheter 1 Vital Signs Temp Pulse Resp BP Pulse Ox 36.8 C 69 16 158/65 H 94 10/24/16 04:00 10/24/16 04:00 10/24/16 04:00 10/24/16 04:00 10/24/16 04:00 Laboratory Results 10/22/16 04:57 10/24/16 04:29 ICD10 Worksheet Patient Problems: Problems Problem Status Diagnosed Fall Acute Intracranial hemorrhage Acute Aortic sclerosis Acute Aortic stenosis Acute Breast CA Acute Parkinsons disease Acute
[2016-10-24] MEDS: FUROSEMIDE 40 MG TAB PO SCH (16:10)
[2016-10-24] MEDS: ATORVASTATIN CALCIUM 20 MG TAB PO SCH (16:11)
[2016-10-24] MEDS: FAMOTIDINE 20 MG TAB PO SCH ×2 (16:26→23:02)
[2016-10-24] MEDS: INSULIN REGULAR HUMAN 100 UNIT/ML SC SCH ×4 (17:20→22:00)
[2016-10-24] MEDS: LOSARTAN POTASSIUM 25 MG TAB PO SCH ×2 (17:52→17:54)
[2016-10-24] MEDS: FAMOTIDINE 20 MG/NACL 50 ML IV SCH (17:53)
[2016-10-24 19:09] LABS: POTASSIUM 3.2 mEq/L (3.5-5.2)
[2016-10-24] MEDS ORDERED: POTASSIUM CL 10 MEQ TAB ONE (22:57)
[2016-10-24] MEDS: DOXAZOSIN MESYLATE 1 MG TAB PO SCH (23:02)
[2016-10-25 02:45] LABS: POTASSIUM 3.3 mEq/L (3.5-5.2)
[2016-10-25] MEDS: CARBIDOPA/LEVO CR 25 MG/100 MG TAB PO SCH ×4 (07:04→23:32)
[2016-10-25] MEDS: LEVOTHYROXINE 100 MCG TAB PO SCH (07:04)
[2016-10-25] MEDS ORDERED: POTASSIUM CL 10 MEQ TAB PO ONE ×2 (07:38→21:12)
--- NOTE | 2016-10-25 07:48 | TRAUMAPN ---
Assessment/Plan: 81yo female s/p fall from standing - Mental status continues to wax and wane, but does appear to be getting close to baseline. - CT head, last performed on 10/13 remains stable. NSG following. No interventions planned - FENG to breast s/p seroma cavity excision, 30cc out over 24hrs. Cont this - Will ultimately need placement given multiple medical comorbidities. Likely soon given mental status improvement Subjective: Overall confused, but intermittently with it. Asked for the window drapes to be opened this AM. Objective: Vital Signs Temp Pulse Resp BP Pulse Ox 36.9 C 65 18 136/66 H 96 10/25/16 02:14 10/25/16 02:14 10/25/16 02:14 10/25/16 02:14 10/25/16 02:14 Laboratory Results 10/22/16 04:57 10/25/16 02:20 10/24/16 10/25/16 10/26/16 05:59 05:59 05:59 Intake Total 1428 500 Output Total 2650 760 Balance -1222 -260 PT 14.2 SEC (12.0-15.0) 10/21/16 08:41 INR 1.11 (0.83-1.16) 10/21/16 08:41 Physical Exam - Physical Exam General Appearance: other (aphasic) Neck: non-tender, full range of motion, supple Respiratory: chest non-tender, lungs clear Cardiac/Chest: normal peripheral pulses, other (R breast FENG serosang) Abdomen: normal bowel sounds, non-tender, soft
[2016-10-25] MEDS: LOSARTAN POTASSIUM 25 MG TAB PO SCH (08:23)
[2016-10-25] MEDS: ATORVASTATIN CALCIUM 20 MG TAB PO SCH (08:23)
[2016-10-25] MEDS: FAMOTIDINE 20 MG TAB PO SCH ×2 (08:24→21:25)
[2016-10-25] MEDS: INSULIN REGULAR HUMAN 100 UNIT/ML SC SCH ×4 (08:37→21:24)
[2016-10-25] MEDS: FUROSEMIDE 40 MG TAB PO SCH (08:37)
--- NOTE | 2016-10-25 08:54 | NEUSURGPN ---
Assessment/Plan: 81 yo female status post fall from standing position with +LOC and diffuse TSAH stable on CTs, did well on the floor overnight ongoing mild improving expressive aphasia likely secondary to her cerebral contusions - CTH have been stable on 10/22 and 10/23 - continue with PT/OT/[employer] - will continue to monitor with q8 hour neuro checks - exam is waxing and waning but stable overall - no surgical intervention indicated - work towards placement/dc Subjective: No complaints this morning but wants a diabetic diet Objective: Awake, alert to and oriented to self and hospital (not year) MAEx4 symmetrically [place] following commands (hard of hearing) Speech is fluent Urinary Catheter in Place: No Catheter Insertion Date: 10/23/16 - Physician Discussed Patient with : Angela Neurosurgery Physical Exam - Vitals, I&O, Labs I and O 10/24/16 10/25/16 10/26/16 05:59 05:59 05:59 Intake Total 1428 500 Output Total 2650 760 Balance -1222 -260 Intake: Oral (ml) 400 500 IV Infused (ml) 1028 0 Ns 1,000 ml @ 100 mls/hr 1028 0 IV CONT JAXON Rx#: [id number] Output: Urine (ml) 2650 700 Diapers/Briefs 400 Catheter 2650 300 Wound Drainage (ml) 60 Right Breast Morgan 60 Puri Other: Number of Voids Diapers/Briefs 1 Catheter 1 Toilet 1 Number of Stools Catheter 1 Vital Signs Temp Pulse Resp BP Pulse Ox 36.9 C 65 18 136/66 H 96 10/25/16 02:14 10/25/16 02:14 10/25/16 02:14 10/25/16 08:24 10/25/16 02:14 Laboratory Results 10/22/16 04:57 10/25/16 02:20 ICD10 Worksheet Patient Problems: Problems Problem Status Diagnosed Fall Acute Intracranial hemorrhage Acute Aortic sclerosis Acute Aortic stenosis Acute Breast CA Acute Parkinsons disease Acute
[2016-10-25] MEDS ORDERED: LOSARTAN POTASSIUM 50 MG TAB PO SCH (09:00)
--- NOTE | 2016-10-25 13:38 | TRAUMAPN ---
Assessment/Plan: s/p unwitnessed fall with CHI/diffuse SAH persistant cervical tenderness with neg cervical spine CT will obtain cervical MRI prior to removing collar continue OT/PT/ST supportive care ? rehab vs. SNF after discharge Subjective: more awake/answering questions appropriately cervical collar in place Objective: Vital Signs Temp Pulse Resp BP Pulse Ox 36.5 C 70 17 152/67 H 97 10/25/16 12:00 10/25/16 12:00 10/25/16 12:00 10/25/16 12:00 10/25/16 12:00 Laboratory Results 10/22/16 04:57 10/25/16 02:20 10/24/16 10/25/16 10/26/16 05:59 05:59 05:59 Intake Total 1428 500 Output Total 2650 760 Balance -1222 -260 PT 14.2 SEC (12.0-15.0) 10/21/16 08:41 INR 1.11 (0.83-1.16) 10/21/16 08:41 - C-Spine Clearance Cervical Spine Cleared: No Physical Exam - Physical Exam General Appearance: no apparent distress EENT: other (sutured lac left lateral zygomatic) Neck: other (tender C2-3/cervical collar replace) Respiratory: lungs clear Cardiac/Chest: regular rate, rhythm Abdomen: non-tender, soft Skin: other (right mastectomy incision healing/FENG sero-sanguinous) Neuro/Psych: other (blunted affect/amnestic for events 24-48 hours after fall)
[2016-10-25 18:40] LABS: POTASSIUM 3.9 mEq/L (3.5-5.2)
--- NOTE | 2016-10-25 19:48 | MR ---
MRI Cervical Spine (Without Contrast) 1618 hours History: Neck pain post trauma. Comparison: CT cervical spine October 13, 2016 Technique: Sagittal T1, T2, axial T2, and 3-D gradient echo MR sequences of the cervical spine withou t contrast. Findings: No cervical compression fractures. No destructive osseous lesions or paraspinal hematomas . No interspinous ligament tears or hematomas. Cerebellar tonsils are in normal position. Cervical s dmitri cord demonstrates normal signal without cord edema or myelomalacia. C2-C3: Moderate bilateral facet arthropathy without disk herniation or stenosis. C3-C4: Moderate left facet arthropathy and mild right facet arthropathy without disk herniation or st enosis. C4-C5: Moderate degenerative disk disease with dorsal disk/osteophyte complex and moderate bilateral facet arthropathy resulting in mild right neural foraminal stenosis without central canal stenosis. C5-C6: Severe degenerative disk disease, dorsal disk/osteophyte complex, bilateral uncovertebral oste ophytes, minimal retrolisthesis, and mild bilateral facet arthropathy resulting in mild central canal stenosis, moderate to severe right neural foraminal stenosis and mild to moderate left neural forami nal stenosis. C6-C7: Severe degenerative disk disease and minimal degenerative retrolisthesis with dorsal disk/oste ophyte complex and bilateral facet arthropathy small bilateral uncovertebral osteoarthritis resulting in mild mild to moderate bilateral neural foraminal stenosis without central canal stenosis. C7-T1: No disk herniation or stenosis. Impression: 1. No cord compression, edema or epidural hematoma. 2. No paraspinal hematoma or definite ligament injury. 3. Severe degenerative disk disease at C5-C6 and C6-C7 with degenerative retrolisthesis, dorsal disk/ osteophyte complex, bilateral uncovertebral resulting in moderate to severe bilateral neural foramina l stenosis and mild central canal stenosis. 4. Please see above findings at specific disk levels.
[2016-10-25] MEDS: LABETALOL HCL 5 MG/ML 20 ML MDV IVP PRN (21:25)
[2016-10-25] MEDS: DOXAZOSIN MESYLATE 1 MG TAB PO SCH (21:25)
[2016-10-25] MEDS ORDERED: ACETAMINOPHEN 325 MG TAB PO PRN (22:10)
[2016-10-26 05:09] LABS: POTASSIUM 3.7 mEq/L (3.5-5.2)
[2016-10-26] MEDS: LEVOTHYROXINE 100 MCG TAB PO SCH (06:20)
[2016-10-26] MEDS: CARBIDOPA/LEVO CR 25 MG/100 MG TAB PO SCH ×3 (06:20→17:12)
[2016-10-26] MEDS ORDERED: POTASSIUM CL 10 MEQ TAB PO ONE ×2 (07:52→19:35)
[2016-10-26] MEDS: INSULIN REGULAR HUMAN 100 UNIT/ML SC SCH ×4 (08:09→22:12)
--- NOTE | 2016-10-26 09:54 | TRAUMAPN ---
- Problem/Surgery Performed (1) Intracranial hemorrhage Assessment/Plan: nonoperative, neurologic exam waxing and waning some but improving in general (2) Breast CA Assessment/Plan: continue FENG drain s/p excision of seroma cavity Subjective: denying neck pain now Objective: Vital Signs Temp Pulse Resp BP Pulse Ox 37.2 C 70 16 156/71 H 95 10/26/16 08:00 10/26/16 08:00 10/26/16 08:00 10/26/16 08:00 10/26/16 08:00 Laboratory Results 10/22/16 04:57 10/26/16 04:45 10/25/16 10/26/16 10/27/16 05:59 05:59 05:59 Intake Total 500 650 Output Total 760 40 Balance -260 610 PT 14.2 SEC (12.0-15.0) 10/21/16 08:41 INR 1.11 (0.83-1.16) 10/21/16 08:41 - C-Spine Clearance Cervical Spine Cleared: Yes Provider who Cleared Cervical Spine: Tsering Time Cervical Spine was Cleared: 10:00 Physical Exam - Physical Exam General Appearance: alert, other (speech fluent) EENT: other (left brow lac healing well, resolving facial ecchymosis) Neck: non-tender, full range of motion, supple
[2016-10-26] MEDS: LOSARTAN POTASSIUM 25 MG TAB PO SCH (10:12)
[2016-10-26] MEDS: FAMOTIDINE 20 MG TAB PO SCH ×2 (10:14→20:09)
[2016-10-26] MEDS: ATORVASTATIN CALCIUM 20 MG TAB PO SCH (10:14)
[2016-10-26] MEDS: FUROSEMIDE 40 MG TAB PO SCH (10:15)
--- NOTE | 2016-10-26 10:40 | NEUSURGPN ---
Assessment/Plan: 81 yo female status post fall from standing position with +LOC and diffuse TSAH stable on CTs, = Neuro: improved this am, following commands, awake and alert. Speech improved CTH stable on 10/22 and 10/23 PT/OT/[employer] Discussed plan with Dr. Miller Dispo planning per medicine, will sign off at this time. Okay to resume anti- platelets 11/07/16 Please notify with change in neuro/motor exam Subjective: Denies any nausea, headache or other pain Objective: NAD Alert, MAEx4, CB II-XII grossly intact Catheter Insertion Date: 10/23/16 - Physician Discussed Patient with : Angela Neurosurgery Physical Exam - Vitals, I&O, Labs I and O 10/25/16 10/26/16 10/27/16 05:59 05:59 05:59 Intake Total 500 650 Output Total 760 40 Balance -260 610 Intake: Oral (ml) 500 650 IV Infused (ml) 0 Ns 1,000 ml @ 100 mls/hr 0 IV CONT JAXON Rx#: [id number] Output: Urine (ml) 700 Diapers/Briefs 400 Catheter 300 Wound Drainage (ml) 60 40 Right Breast Morgan 60 40 Puri Other: Intake Quantity Yes Sufficient Number of Voids Diapers/Briefs 1 Toilet 1 1 Number of Stools Catheter 1 Vital Signs Temp Pulse Resp BP Pulse Ox 37.2 C 70 16 156/71 H 95 10/26/16 08:00 10/26/16 08:00 10/26/16 08:00 10/26/16 10:15 10/26/16 08:00 Laboratory Results 10/22/16 04:57 10/26/16 04:45 ICD10 Worksheet Patient Problems: Problems Problem Status Diagnosed Fall Acute Intracranial hemorrhage Acute Aortic sclerosis Acute Aortic stenosis Acute Breast CA Acute Parkinsons disease Acute
[2016-10-26 18:00] LABS: POTASSIUM 3.6 mEq/L (3.5-5.2)
[2016-10-26] MEDS ORDERED: POTASSIUM CL 20 MEQ TAB PO ONE (20:00)
[2016-10-26] MEDS: DOXAZOSIN MESYLATE 1 MG TAB PO SCH (20:10)
[2016-10-27] MEDS: CARBIDOPA/LEVO CR 25 MG/100 MG TAB PO SCH ×2 (00:48→08:07)
[2016-10-27] MEDS ORDERED: CARBIDOPA/LEVO CR 50 MG/200 MG TAB PO SCH (01:00)
[2016-10-27] MEDS: CARBIDOPA/LEVO CR 50 MG/200 MG TAB PO SCH ×3 (01:09→17:40)
[2016-10-27 05:07] LABS: POTASSIUM 3.8 mEq/L (3.5-5.2)
[2016-10-27] MEDS ORDERED: POTASSIUM CL 10 MEQ TAB PO ONE ×2 (07:57→19:28)
[2016-10-27] MEDS: LEVOTHYROXINE 100 MCG TAB PO SCH (08:07)
[2016-10-27] MEDS: ATORVASTATIN CALCIUM 20 MG TAB PO SCH (08:19)
[2016-10-27] MEDS: LOSARTAN POTASSIUM 25 MG TAB PO SCH (08:19)
[2016-10-27] MEDS: FUROSEMIDE 40 MG TAB PO SCH (08:20)
[2016-10-27] MEDS: FAMOTIDINE 20 MG TAB PO SCH ×2 (08:21→19:52)
--- NOTE | 2016-10-27 09:15 | TRAUMAPN ---
Assessment/Plan: 81yo F s/p unwitnessed fall at home, B SAH Resume anti-platelet agent 11/07/16 per NSG Placement Objective: Vital Signs Temp Pulse Resp BP Pulse Ox 36.9 C 74 15 169/74 H 97 10/27/16 03:35 10/27/16 08:00 10/27/16 08:00 10/27/16 08:21 10/27/16 08:00 Laboratory Results 10/22/16 04:57 10/27/16 04:34 10/26/16 10/27/16 10/28/16 05:59 05:59 05:59 Intake Total 650 120 Output Total 40 50 Balance 610 70 PT 14.2 SEC (12.0-15.0) 10/21/16 08:41 INR 1.11 (0.83-1.16) 10/21/16 08:41 - C-Spine Clearance Cervical Spine Cleared: Yes Provider who Cleared Cervical Spine: Tsering Time Cervical Spine was Cleared: 10:00
--- NOTE | 2016-10-27 09:16 | TRAUMAPN ---
Assessment/Plan: (1) Intracranial hemorrhage Assessment/Plan: nonoperative, Resume antiplatelet therapy on 11/07/2016 No head pain (2) Breast CA Assessment/Plan: continue FENG drain s/p excision of seroma cavity per Dr. Radford Appreciate hospitalists managing CAD< TVAR, Parkinsons, HTN, Hypothyroid, Hyperlipidemia S: Tired but no head pain Objective: Vital Signs Temp Pulse Resp BP Pulse Ox 36.9 C 74 15 169/74 H 97 10/27/16 03:35 10/27/16 08:00 10/27/16 08:00 10/27/16 08:21 10/27/16 08:00 Laboratory Results 10/22/16 04:57 10/27/16 04:34 10/26/16 10/27/16 10/28/16 05:59 05:59 05:59 Intake Total 650 120 Output Total 40 50 Balance 610 70 PT 14.2 SEC (12.0-15.0) 10/21/16 08:41 INR 1.11 (0.83-1.16) 10/21/16 08:41 - C-Spine Clearance Cervical Spine Cleared: Yes Provider who Cleared Cervical Spine: Tsering Time Cervical Spine was Cleared: 10:00 Physical Exam - Physical Exam General Appearance: other (sitting up in bed, needed to repeat questions several times but answered appropriately. Thin) EENT: normal ENT inspection, other (yellowing ecchymosis left face) Respiratory: lungs clear, decreased breath sounds (at bases) Cardiac/Chest: other (regular rate, no obvious edema)
[2016-10-27] MEDS: INSULIN REGULAR HUMAN 100 UNIT/ML SC SCH ×4 (10:04→22:24)
[2016-10-27] MEDS ORDERED: BISACODYL 10 MG SUPP PR PRN (15:16)
[2016-10-27] MEDS ORDERED: LACTULOSE 20 GM/30 ML UDCUP PO PRN (15:16)
[2016-10-27] MEDS ORDERED: MAGNESIUM HYDROXIDE 30 ML UDCUP PO PRN (15:16)
--- NOTE | 2016-10-27 15:47 | GCON ---
[f rep st] CONSULTATION REFERRING PHYSICIAN: Rsoalia Marsh MD REASON FOR CONSULTATION: Medical management. HISTORY OF PRESENT ILLNESS: Ms. Hamm is an 81-year-old female who presented to the emergency room as a limited trauma activation after she sustained a fall at home. In talking with the patient and her , as well as her son, she had no presyncopal symptoms, no chest pain, no shortness of breath. She simply fell down and landed on her face. Her found her lying on the floor and subsequently called EMS. On arrival to the emergency room, it was noted that she had a subarachnoid hemorrhage from the fall. It is unclear at this time if it was a mechanical fall or related to changes in her hemodynamic status. 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 On October 16, 2016, she had surgery for a chronic seroma over a previous mastectomy site. Per her son, she tolerated the procedure well. She had a good recovery at home. Prior to this, she had a transcatheter aortic valve replacement done on August 19, 2016, at [facility], and also had been doing well with this. During my evaluation, she denies any chest pain , shortness of breath, no dizziness. Her main complaint is that she is very tired and wanted to rest. Much of my data was collected via the son. PAST MEDICAL HISTORY: 1. Coronary artery disease. 2. Hypertension. 3. Hyperlipidemia. 4. Parkinson disease. 5. Aortic stenosis. 6. Squamous cell cancer noted to her left arm. PAST SURGICAL HISTORY: 1. Cholecystectomy. 2. Colectomy. 3. Hernia repair. 4. Bilateral mastectomy in 2010. 5. Seroma removal in September of this year. 6. TAVR August 19, 2016. 7. Umbilical hernia repair in October 2008. 8. Appendectomy. 9. Tonsillectomy. 10. Tubal ligation. 11. Hysterectomy. ALLERGIES: She has an extensive allergy list, which includes aspirin, Carbocaine, Novocain, penicillin, erythromycin, Benadryl, Minipress, Glucophage , Prilosec, Bactrim, Neosporin, Levaquin, Epogen, Betadine, iodine. HOME MEDICATIONS: Include: Metformin 850 mg twice daily, amlodipine 10 mg at bedtime, Zocor 20 mg p.o. at bedtime, multivitamin 1 tab daily, Cozaar 50 mg daily, Synthroid 100 mcg daily, herbal supplements 1 tab daily, Lasix 60 mg daily, Cardura 1 mg p.o. at bedtime, Plavix 75 mg daily, Sinemet CR 2 tabs p.o. 1200, 1800, and 2300 hours, Sinemet CR 3 tablets p.o. at 0700, aspirin 81 mg daily, albuterol 3 mL inhalation daily. SOCIAL HISTORY: She lives with her . She has been for 62 years. She has 4 children. She has no history of smoking or drinking. 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 REVIEW OF SYSTEMS: A 10-point review of systems was performed and was negative , other than pertinent positives in the HPI and past medical history. PHYSICAL EXAM: GENERAL: Ms. Hamm is an 81-year-old female who appears to be in fair health. VITAL SIGNS: Blood pressure is 128/59, heart rate 69, respiratory rate 15, O2 sats on room air 95%, temperature is 36.7 Celsius. HEENT: Eyes: Pupils are equal and reactive. EOMs are intact. No conjunctival injection noted. ENT: She is hard of hearing, but can hear if spoken slowly and loudly to her. NECK: Trachea is midline. No masses noted. CARDIOVASCULAR: She is in a regular rate and rhythm. Soft murmur noted. No JVP is noted. CHEST/LUNGS: Normal respiratory effort. Clear, without wheezing , rales, or rhonchi. ABDOMEN: Soft, nontender, no rebound or guarding. SKIN: She has some ecchymosis around her left eye area, otherwise warm, dry, and intact. MUSCULOSKELETAL: Not evaluated. PSYCHIATRIC: She is alert and oriented. She is very slow to answer my questions due to being very tired. She appears to have normal judgment and insight. LABORATORY: Data reviewed. Most recent CBC was performed on 10/22/2016, hemoglobin is 8.5, hematocrit is 26, platelet count is 189. Coags done on October 21 show a prothrombin time of 14.2, an INR of 1.11. Chemistry panel performed on October 22 shows a sodium 139, potassium 3.3, chloride of 107, BUN of 24, creatinine 0.9. Most recent glucose is 217. RADIOLOGIC DATA: 1. The most recent cervical MRI done on October 25, 2016, which showed no cord compression, edema, or epidural hematoma. She has no paraspinal hematoma or definite ligament injury. She has severe degenerative disc disease at C5-C6, and C6-C7 with degenerative retrolisthesis, dorsal disc-osteophyte complex, bilateral uncovertebral resulting in moderate to severe bilateral neural foraminal stenosis and mild central canal stenosis. 2. Most recent head CT on October 23 shows multiple bilateral intraparenchymal and subarachnoid hemorrhages with minimal improvement. She has no definite new foci or acute hemorrhage. No hydrocephalus or mass effect. She has cerebrovascular atherosclerosis. She has no definite acute infarct. She has atrophy with moderate microvascular ischemic gliosis. Please see the chart for earlier studies. ASSESSMENT AND PLAN: 1. Intracranial hemorrhage. Per Neurology, she can resume her antiplatelet therapy on November 07, 2016. She overall is doing well. She may need further imaging if she has any neurologic changes. 2. Recent transcatheter aortic valve replacement for severe aortic stenosis. She has a followup appointment with her head of conservation at [facility] in December. 3. Parkinson. Resumed Sinemet. 4. Hypertension. Blood pressure is well managed. Her antihypertensives have been resumed. 5. Hyperlipidemia. Resumed statin therapy. 6. Diabetes type 2. She is on sliding scale insulin. At this time, will hold off resuming her metformin in case she needs any further imaging, but this can be re-implemented at discharge. 7. Hypothyroidism. Resume her Synthroid. 8. Coronary artery disease. To resume aspirin and Plavix later this month. She is on losartan and simvastatin. 9. Sleep apnea. To resume her CPAP when available. 10. Anemia. Repeat labs in the a.m. 11. Hypokalemia. Replace with electrolyte protocol. 12. Deep venous thrombosis prophylaxis. Will provide athrombic pumps and CAITLIN hose. Medical treatment is contraindicated due to the recent intracranial hemorrhage. 13. Code status: Full. Thank you for this consultation. The hospitalist team will continue to follow this delightful patient during her stay. /[id number]/MODL MTDD
[2016-10-27] MEDS: POLYETHYLENE GLYCOL 3350 17 GM PKT PO SCH ×2 (16:00→19:55)
[2016-10-27 18:56] LABS: POTASSIUM 3.8 mEq/L (3.5-5.2)
[2016-10-27] MEDS: SENNOSIDES/DOCUSATE SODIUM TAB PO SCH (19:52)
[2016-10-27] MEDS: DOXAZOSIN MESYLATE 1 MG TAB PO SCH (19:52)
[2016-10-28] MEDS: CARBIDOPA/LEVO CR 50 MG/200 MG TAB PO SCH ×2 (01:49→11:44)
[2016-10-28 05:30] LABS: % IMMATURE GRANULYOCYTES 0.5 % (0.0-1.1); ABSOLUTE IMMATURE GRANULOCYTES 0.05 10^3/uL (0.00-0.10); ADD DIFF? NO; ADD MORPH? NO; ADD SCAN? NO; ATYPICAL LYMPHOCYTE FLAG 0 (0-99); FRAGMENT RBC FLAG 0 (0-99); HEMATOCRIT 25.2 % (38.0-47.0); HEMOGLOBIN 8.7 g/dL (12.6-16.3); LEFT SHIFT FLG 0 (0-99); LIPEMIA HEMOLYSIS FLAG 90 (0-99); MEAN CELL HEMOGLOBIN 33.3 pg (27.9-34.1); MEAN CELL HEMOGLOBIN CONCENTR. 34.5 g/dL (32.4-36.7); MEAN CELL VOLUME 96.6 fL (81.5-99.8); MEAN PLATELET VOLUME 9.1 fL (8.7-11.7); PLATELET CLUMPS FLAG 0 (0-99); PLATELET COUNT 153 10^3/uL (150-400); RED BLOOD CELL COUNT 2.61 10^6/uL (4.18-5.33); RED CELL DISTRIBUTION WIDTH 14.2 % (11.5-15.2)
[2016-10-28 05:45] LABS: ANION GAP 8 mEq/L (8-16); CALCIUM 8.7 mg/dL (8.5-10.4); CARBON DIOXIDE 26 mEq/l (22-31); CHLORIDE 100 mEq/L (97-110); CREATININE 0.9 mg/dL (0.6-1.0); GLOMERULAR FILTRATION RATE > 60; GLUCOSE 191 mg/dL (70-100); POTASSIUM 4.1 mEq/L (3.5-5.2); SODIUM 134 mEq/L (134-144)
[2016-10-28] MEDS: LEVOTHYROXINE 100 MCG TAB PO SCH (06:01)
[2016-10-28] MEDS: CARBIDOPA/LEVO CR 25 MG/100 MG TAB PO SCH (06:01)
[2016-10-28] MEDS: LABETALOL HCL 5 MG/ML 20 ML MDV IVP PRN (07:20)
[2016-10-28 07:26] VITALS: TEMP 98.6; O2SAT 94
[2016-10-28] MEDS: INSULIN REGULAR HUMAN 100 UNIT/ML SC SCH ×2 (08:56→11:44)
[2016-10-28] MEDS: SENNOSIDES/DOCUSATE SODIUM TAB PO SCH (08:57)
[2016-10-28] MEDS: LOSARTAN POTASSIUM 25 MG TAB PO SCH (08:57)
[2016-10-28] MEDS: POLYETHYLENE GLYCOL 3350 17 GM PKT PO SCH (08:57)
[2016-10-28] MEDS: FUROSEMIDE 40 MG TAB PO SCH (08:58)
[2016-10-28] MEDS: FAMOTIDINE 20 MG TAB PO SCH (08:58)
[2016-10-28] MEDS: ATORVASTATIN CALCIUM 20 MG TAB PO SCH (08:58)
[2016-10-28 11:35] VITALS: BP 149/47; PULSE 73; RESP 18
[2016-10-28 12:16] LABS: GLUCOSE 313 mg/dL (70-100)
--- NOTE | 2016-10-28 12:24 | PDIAF ---
- Diagnosis Diagnosis: subarachnoid hemorrhage Code Status: Full Code - Medication Management Discharge Medications: Medications to Continue on Transfer Albuterol [Proventil Neb] 3 ml IH DAILY PRN 10/21/16 [Last Taken 10/20/16] Carbidopa/Levo Cr 25/100Mg [Sinemet CR 25/100 MG (*)] 2 tab PO 1200,1800,2300 [Last Taken 10/20/16] Carbidopa/Levo Cr 25/100Mg [Sinemet CR 25/100 MG (*)] 3 tab PO 0700 10/21/16 [ Last Taken 10/20/16] Cholecalciferol Vit D3 [Vitamin D3 (*)] 1,000 units PO BID 10/21/16 [Last Taken 10/20/16] Clopidogrel Bisulfate [Clopidogrel] 75 mg PO DAILY 10/21/16 [Last Taken 10/20/16 ] Docusate Sodium [Colace 100 MG (*)] 300 mg PO DAILY 10/21/16 [Last Taken ] Doxazosin Mesylate [Cardura 1 MG (*)] 1 mg PO HS 10/21/16 [Last Taken 10/20/16] Furosemide [Lasix 40 MG (*)] 60 mg PO DAILY 10/21/16 [Last Taken 10/20/16] Herbals/Supplements -Info Only 1 ea PO DAILY 10/21/16 [Last Taken Unknown] Levothyroxine [Synthroid 100 mcg (*)] 100 mcg PO DAILY06 10/21/16 [Last Taken ] Losartan Potassium [Cozaar 50 mg (*)] 50 mg PO DAILY 10/21/16 [Last Taken ] Multivitamins [Multivitamin (*)] 1 each PO DAILY 10/21/16 [Last Taken 10/20/16] Simvastatin [Zocor] 20 mg PO HS 10/21/16 [Last Taken 10/20/16] amLODIPine BESYLATE [Norvasc 10 mg (*)] 10 mg PO HS 10/21/16 [Last Taken ] metFORMIN HCL [Glucophage 850 mg (*)] 850 mg PO BIDMEAL 10/21/16 [Last Taken 18:00] Discharge Medications: Refer to the Discharge Home Medication list for PRN reason. - Orders Services needed: Physical Therapy, Occupational Therapy Diet Texture: Dysphagia 3 - Advanced - Moist, Bite-Size, Thin Liquids, Meds Whole in Puree Wound Care Instructions: Follow-up Dr. Radford regarding FENG drain in breast seroma Additional: Restart Aspirin and Plavix 11/07/16 - Follow Up Care Current Providers and Referrals: NONE *PRIMARY CARE P,. [Unknown] - As per Instructions Leonard Radford MD [Medical Doctor] -
[2016-10-28] MEDS ORDERED: BACITRACIN OINTMENT 1 PACKET TP ONE (15:11)
[2016-10-28] MEDS ORDERED: CLINDAMYCIN 150 MG CAP PO SCH (16:00)
--- NOTE | 2016-10-28 16:00 | SOAPPROG ---
SOAP Progress Note Assessment/Plan: Assessment: SP FALL AND SUBARACHNOID BLEED/ NEURO OK/ AFEBRILE BREAST SITE WITH SOME MILD CELLULITIS/ ALLERGIC TO MOST ABX DRAINAGE LOOKS CLOUDY/ DRAIN AND STITCHES OUT Plan: FU NEXT WEEK/ RX FOR CLINDAMYCIN/ TOPICAL BACITRACIN 10/28/16 15:57 Objective: Vital Signs Temp Pulse Resp BP Pulse Ox 37 C 73 18 149/47 H 94 10/28/16 07:26 10/28/16 11:35 10/28/16 11:35 10/28/16 11:35 10/28/16 11:35 Laboratory Results 10/28/16 05:19 10/28/16 11:49 10/27/16 10/28/16 10/29/16 05:59 05:59 05:59 Intake Total 120 900 Output Total 50 50 Balance 70 850 PT 14.2 SEC (12.0-15.0) 10/21/16 08:41 INR 1.11 (0.83-1.16) 10/21/16 08:41 ICD10 Worksheet Patient Problems: Problems Problem Status Diagnosed Fall Acute Intracranial hemorrhage Acute Aortic sclerosis Acute Aortic stenosis Acute Breast CA Acute Parkinsons disease Acute
--- NOTE | 2016-10-28 17:30 | GDS ---
[f rep st] DISCHARGE SUMMARY DISCHARGE DIAGNOSES: 1. Subarachnoid hemorrhage, status post fall. 2. Recent transcatheter aortic valve replacement for severe aortic stenosis. 3. Parkinson's. 4. Breast seroma, status post recent drainage. 5. Diabetes type 2. 6. Obstructive sleep apnea, on CPAP. 7. Coronary artery disease. HISTORY: The patient is an 81-year-old female who initially was admitted to the trauma service after she developed a fall at home. There was no report of preceding symptoms, but she had a fall, meme g on her face, found by lying on the floor. In the emergency room, she was diagnosed with a subarachnoid hemorrhage, and she was initially admitted to Neurosurgery and Trauma Surgery. The suba rachnoid hemorrhage remained stable on followup imaging. Her anti-platelet therapy was held. She di d have problems with metabolic encephalopathy and confusion. Eventually, she stabilized, was transfe rred to the floor, and Internal Medicine was asked to assume care for further management of her chron ic medical issues. Her mental status showed continual improvement, and she was stable for transfer t o [facility]. She recently had a drainage procedure by Dr. Radford of a breast seroma. On the day of discharge, she was seen by Dr. Radford, who felt there was a mild cellulitis, and that the drainage looked a little cl oudy. The drain and the stitches were removed. He gave her a prescription for clindamycin and topic al bacitracin at the time of discharge, and recommended she follow up with him next week. DISCHARGE MEDICATIONS: Please see computer record for full detailed list. There were no new medicat ions given at the time of the hospital discharge except for prescriptions given to patient by Dr. Felix carver. ADDITIONAL DISCHARGE INSTRUCTIONS: Transfer to [facility] for [facility]. Greater 30 minutes' time was spent in arranging this discharge. Patient was seen and examined by me on the day of discharge. /[id number]/MODL
[2016-10-28] MEDS ORDERED: metFORMIN HCL 850 MG TAB PO SCH (18:00)
== END 2016-10-28 16:50 | DRG 82 ==
LOC: EDBD → EDUNIT# → F2N 11:31 → F3N 10-23 20:02
PROVIDERS: ADMIT Surgery; ATTEND Internal Medicine
PROC: 0HQ1XZZ Repair Face Skin, External Approach (ICD-10-PCS; principal; 2016-10-21)
PROC: 30233R1 Transfusion of Nonautologous Platelets into Peripheral Vein, Percutaneous Approach (ICD-10-PCS; 2016-10-21)
PROC: 30233N1 Transfusion of Nonautologous Red Blood Cells into Peripheral Vein, Percutaneous Approach (ICD-10-PCS; 2016-10-21)
DX: S06.6X9A Traumatic subarachnoid hemorrhage with loss of consciousness of unspecified duration, initial encounter (principal); S01.81XA Laceration without foreign body of other part of head, initial encounter; S01.112A Laceration without foreign body of left eyelid and periocular area, initial encounter; G93.41 Metabolic encephalopathy; E87.6 Hypokalemia; I25.10 Atherosclerotic heart disease of native coronary artery without angina pectoris; E11.9 Type 2 diabetes mellitus without complications; G47.33 Obstructive sleep apnea (adult) (pediatric); I10 Essential (primary) hypertension; G20 Parkinson's disease; E03.9 Hypothyroidism, unspecified; E78.5 Hyperlipidemia, unspecified; W19.XXXA Unspecified fall, initial encounter; Y92.010 Kitchen of single-family (private) house as the place of occurrence of the external cause; Z95.2 Presence of prosthetic heart valve; Z85.3 Personal history of malignant neoplasm of breast; Z90.13 Acquired absence of bilateral breasts and nipples; Z95.5 Presence of coronary angioplasty implant and graft
CPT/HCPCS: 82947-QW; 92507-GN; 92523-GN; 92526-GN; 92610-GN; 97001-GP; 97003-GO; 97116-GP; 97530-GO; 97532-GN; 97535-GO; G0390; G8978-GP-CM; G8979-GP-CJ; G8987-GO-CM; G8988-GO-CK; G8996-GN-CI; G8997-GN-CH; G9159-GN-CM; G9160-GN-CM; G9161-GN-CM; J0171; J1815; J1953; J3490; L0172; P9021; P9035

== ENCOUNTER 2016-11-04 13:05 | Inpatient (IN) | payer OTHER ==
[2016-11-04] MEDS ORDERED: NS 1,000 ML IV ONE (13:18)
--- NOTE | 2016-11-04 13:26 | EDPHY ---
H & P Time Seen by Provider: 11/04/16 13:11 HPI/ROS: CHIEF COMPLAINT: ALTERED MENTAL STATUS HISTORY OF PRESENT ILLNESS: The patient is a 81-year-old female who is brought here with an unclear chief complaint. Originally she was at physical therapy today and EMS reports that they called 911 because they felt she was having some one-sided weakness. They were not clear on which side was weak. EMS stated that she did not have any weakness or signs of stroke on their arrival and evaluation. EMS felt that she may have altered mental status although according to her records it appears that she may be at baseline. She is alert to person place and time but not location. She answers most questions appropriately. She has been afebrile. She denies being ill recently. She denies being in any pain other than with a decubitus ulcer on her tailbone. When asking the patient why she is here she states that she thinks she fell. She seems to be confusing this however with her visit here on October 21 at which time she was found down and had a subarachnoid hemorrhage. She does have multiple old bruises to her face and extremities but none appear to be new. No hematomas or lacerations. she does have a history of Parkinson's disease, coronary artery disease, hypertension, aortic stenosis status post transcatheter aortic valve replacement. Also a history of a breast seroma, diabetes obstructive sleep apnea on CPAP and a scar on her abdomen that appears to be from cholecystectomy.. REVIEW OF SYSTEMS: Constitutional: denies: chills, fever, recent illness, recent injury EENTM: denies: blurred vision, double vision, nose congestion Respiratory: denies: cough, shortness of breath Cardiac: denies: chest pain, irregular heart rate, lightheadedness, palpitations Gastrointestinal/Abdominal: denies: abdominal pain, diarrhea, nausea, vomiting, blood streaked stools Genitourinary: denies: dysuria, frequency, hematuria, pain Musculoskeletal: Tailbone pain, multiple people diffuse bruising, normal range of motion Skin: Multiple old bruises Neurological: denies: headache, numbness, paresthesia, tingling, dizziness, weakness Hematologic/Lymphatic: denies: blood clots, easy bleeding, easy bruising Immunologic/allergic: denies: HIV/AIDS, transplant EXAM: GENERAL: Cachectic, denies complaints, answers most questions appropriately. Disoriented to location. HEAD: Atraumatic, normocephalic. EYES: Pupils equal round and reactive to light, extraocular movements intact, sclera anicteric, conjunctiva are normal. ENT: TMs normal, nares patent, oropharynx clear without exudates. Moist mucous membranes. NECK: Normal range of motion, supple without lymphadenopathy or JVD. LUNGS: Breath sounds clear to auscultation bilaterally and equal. No wheezes rales or rhonchi. HEART: Regular rate and rhythm without murmurs, rubs or gallops. ABDOMEN: Soft, nontender, normoactive bowel sounds. No guarding, no rebound. No masses appreciated. BACK: No CVA tenderness, no spinal tenderness, step-offs or deformities EXTREMITIES: Normal range of motion, 5/5 strength in all extremities. NEUROLOGICAL: Cranial nerves II through XII grossly intact. Normal speech, normal gait. 5/5 strength, normal movement in all extremities, normal sensation PSYCH: Normal mood, normal affect. SKIN: Multiple old bruises discolored yellow. No visible hematomas or lacerations. Stage II decubitus ulcer to sacrum. Not dressed. Not erythematous. Not purulent. Source: Patient, EMS, Old records Exam Limitations: Clinical condition - Personal History Tetanus Vaccine Date: UNKNOWN - Medical/Surgical History Hx Asthma: Yes Hx Chronic Respiratory Disease: No Hx Diabetes: Yes Hx Cardiac Disease: Yes Hx Renal Disease: No Hx Cirrhosis: No Hx Alcoholism: No Hx HIV/AIDS: No Hx Splenectomy or Spleen Trauma: No Other PMH: 1. Parkinson's. 2. Aortic stenosis. 3. Hypertension. 4. Coronary artery disease. 5. Hyperlipidemia. 6. Breast cancer. Surgical history. 1. Bilateral mastectomies with recent surgery for chest wall seroma. 2. Cholecystectomy. 3. Inguinal hernia. - Family History Significant Family History: No pertinent family hx - Social History Smoking Status: Never smoked Alcohol Use: Sober Drug Use: None Constitutional: Initial Vital Signs Temperature (C) 36.5 C 11/04/16 13:05 Heart Rate 69 11/04/16 13:05 Respiratory Rate 16 11/04/16 13:05 Blood Pressure 153/58 H 11/04/16 13:05 O2 Sat (%) 96 11/04/16 13:05 O2 Delivery Mode Room Air Allergies/Adverse Reactions: vancomycin Allergy (Severe, Verified 11/04/16 13:35) Tingling of mouth/throat Anise *RETIRED-07/04/12 [Anise] Allergy (Mild, Verified 11/04/16 13:35) SICK TO STOMACH mustard [Mustard] Allergy (Mild, Verified 11/04/16 13:35) SICK TO STOMACH diphenhydramine [Diphenhydramine] Allergy (Unknown, Verified 11/04/16 13:35) aspirin [Aspirin] Allergy (Verified 11/04/16 13:35) bacitracin [From Neosporin] Allergy (Verified 11/04/16 13:35) bacitracin zinc [From Neosporin] Allergy (Verified 11/04/16 13:35) banana Allergy (Verified 11/04/16 13:35) cefaclor [From Ceclor] Allergy (Verified 11/04/16 13:35) chlorpheniramine [From Chlor-Trimeton] Allergy (Verified 11/04/16 13:35) chlorpheniramine maleate [From Co-Pyronil 2] Allergy (Verified 11/04/16 13:35) egg Allergy (Verified 11/04/16 13:35) epoetin derick [From Epogen] Allergy (Verified 11/04/16 13:35) erythromycin base [Erythromycin Base] Allergy (Verified 11/04/16 13:35) gluten Allergy (Verified 11/04/16 13:35) gramicidin D [From Neosporin] Allergy (Verified 11/04/16 13:35) iodine [Iodine] Allergy (Verified 11/04/16 13:35) levofloxacin [From Levaquin] Allergy (Verified 11/04/16 13:35) mepivacaine HCl [From Carbocaine] Allergy (Verified 11/04/16 13:35) metformin HCl [From Glucophage XR] Allergy (Verified 11/04/16 13:35) naproxen [From Naprosyn] Allergy (Verified 11/04/16 13:35) neomycin sulfate [From Neosporin] Allergy (Verified 11/04/16 13:35) omeprazole [From Prilosec] Allergy (Verified 11/04/16 13:35) omeprazole magnesium [From Prilosec] Allergy (Verified 11/04/16 13:35) Penicillins Allergy (Verified 11/04/16 13:35) phenylpropanolamine HCl [From Chlor-Trimeton] Allergy (Verified 11/04/16 13:35) polymyxin B [From Neosporin] Allergy (Verified 11/04/16 13:35) polymyxin B sulfate [From Neosporin] Allergy (Verified 11/04/16 13:35) povidone-iodine [From Betadine] Allergy (Verified 11/04/16 13:35) prazosin HCl [From Minipress] Allergy (Verified 11/04/16 13:35) procaine [Procaine] Allergy (Verified 11/04/16 13:35) procaine HCl [From Novocain] Allergy (Verified 11/04/16 13:35) pseudoephedrine HCl [From Co-Pyronil 2] Allergy (Verified 11/04/16 13:35) soap [From Betadine] Allergy (Verified 11/04/16 13:35) sulfamethoxazole [From Bactrim] Allergy (Verified 11/04/16 13:35) trimethoprim [From Bactrim] Allergy (Verified 11/04/16 13:35) hyperthyroid medications Allergy (Uncoded 11/04/16 13:34) Home Medications: Medication Instructions Recorded Carbidopa/Levo Cr 25/100Mg 2 tab PO TID@1200,1800,2300 10/21/16 [Sinemet CR 25/100 MG (*)] Carbidopa/Levo Cr 25/100Mg 3 tab PO DAILY@07 10/21/16 [Sinemet CR 25/100 MG (*)] Cholecalciferol Vit D3 [Vitamin D3 1,000 units PO BID 10/21/16 (*)] Clopidogrel Bisulfate [Clopidogrel] 75 mg PO DAILY 10/21/16 Docusate Sodium [Colace 100 MG (*)] 300 mg PO DAILY 10/21/16 Doxazosin Mesylate [Cardura 1 MG 1 mg PO DAILY 10/21/16 (*)] Furosemide [Lasix 40 MG (*)] 60 mg PO DAILY 10/21/16 Levothyroxine [Synthroid 100 mcg 100 mcg PO DAILY06 10/21/16 (*)] Losartan Potassium [Cozaar 50 mg 50 mg PO DAILY 10/21/16 (*)] Multivitamins [Multivitamin (*)] 1 each PO DAILY 12/28/16 Simvastatin [Zocor] 20 mg PO HS 10/21/16 amLODIPine BESYLATE [Norvasc 10 mg 10 mg PO HS 10/21/16 (*)] metFORMIN HCL [Glucophage 850 mg 850 mg PO BIDMEAL 10/21/16 (*)] Acetaminophen [Tylenol 325mg (*)] 650 mg PO Q6H PRN 11/04/16 Clindamycin HCl [Clindamycin] 300 mg PO QID@08,12,16,20 11/04/16 Medical Decision Making - Diagnostics EKG Interpretation: An EKG obtained and was read and documented in trace view. Please see trace view for full reading and report. Sinus rhythm, left bundle branch block, unchanged from previous Imaging: X-ray: chest x-ray was obtained. I viewed the images myself on the PACS system. My interpretation of the images is: Unchanged from previous. The radiologist interpretation is pending. Results: CT scan of the head was obtained. The results of the study are resolving intracranial hemorrhage compared to previous. The study was read by Dr. Dima Savage. I viewed the images myself on the PACS system. ED Course/Re-evaluation: We will attempt to contact the Physical therapy center to ascertain what their initial reason was for calling 911. Currently the patient has no acute complaints. She is mildly confused but this appears to be a baseline. She is afebrile. She denies recent illness. She denies having any pain other than to a decubitus ulcer on her sacrum. Does not appear to be infected. 1:30 p.m. we were able to speak with the nurse at physical therapy. She states the patient had left-sided arm weakness and slurred speech and seemed less responsive than usual during their therapy this morning but the symptoms resolved by the time EMS arrived. The patient is now back to her baseline. 2:30 p.m. I discussed the case with Jennifer who accepted her doctor Brooks. 3:20 p.m. I spoke with Dr. Guy. I will start the patient on antibiotics for possible urinary tract infection. She is allergic to penicillins and cephalosporins and Levaquin. I will start Etrapenem which is a carbapenems. Differential Diagnosis: Partial list of the Differential diagnosis considered include but were not limited to; infection, pneumonia, hypoxic, TIA, CVA and although unlikely based on the history and physical exam, I also considered dissection, hemorrhage. - Data Points Laboratory Results: Laboratory Results 11/04/16 13:05 11/04/16 13:05 11/04/16 11/04/16 14:20 13:05 WBC 11.12 H 10^3/uL (3.80-9.50) RBC 3.06 L 10^6/uL (4.18-5.33) Hgb 10.1 L g/dL (12.6-16.3) Hct 29.2 L % (38.0-47.0) MCV 95.4 fL (81.5-99.8) MCH 33.0 pg (27.9-34.1) MCHC 34.6 g/dL (32.4-36.7) RDW 13.4 % (11.5-15.2) Plt Count 218 10^3/uL (150-400) MPV 8.9 fL (8.7-11.7) Neut % (Auto) 91.4 H % (39.3-74.2) Lymph % (Auto) 4.0 L % (15.0-45.0) Bibb % (Auto) 2.9 L % (4.5-13.0) Eos % (Auto) 0.4 L % (0.6-7.6) Baso % (Auto) 0.2 L % (0.3-1.7) Nucleat RBC Rel Count 0.0 % (0.0-0.2) Absolute Neuts (auto) 10.18 H 10^3/uL (1.70-6.50) Absolute Lymphs (auto) 0.44 L 10^3/uL (1.00-3.00) Absolute Monos (auto) 0.32 10^3/uL (0.30-0.80) Absolute Eos (auto) 0.04 10^3/uL (0.03-0.40) Absolute Basos (auto) 0.02 10^3/uL (0.02-0.10) Absolute Nucleated RBC 0.00 10^3/uL (0-0.01) Immature Gran % 1.1 % (0.0-1.1) Immature Gran # 0.12 H 10^3/uL (0.00-0.10) PT 14.9 SEC (12.0-15.0) INR 1.17 H (0.83-1.16) APTT 24.2 SEC (23.0-38.0) VBG Lactic Acid 1.5 mmol/L (0.7-2.1) Sodium 133 L mEq/L (134-144) Potassium 4.2 mEq/L (3.5-5.2) Chloride 97 mEq/L (97-110) Carbon Dioxide 27 mEq/l (22-31) Anion Gap 9 mEq/L (8-16) BUN 31 H mg/dL (7-23) Creatinine 1.1 H mg/dL (0.6-1.0) Estimated GFR 48 Glucose 206 H mg/dL (70-100) Calcium 9.0 mg/dL (8.5-10.4) Total Bilirubin 0.8 mg/dL (0.1-1.4) Conjugated Bilirubin 0.4 mg/dL (0.0-0.5) Unconjugated Bilirubin 0.4 mg/dL (0.0-1.1) AST 17 IU/L (14-46) ALT 18 IU/L (9-52) Alkaline Phosphatase 71 IU/L (38-126) Troponin I < 0.012 ng/mL (0-0.034) Total Protein 5.6 L g/dL (6.3-8.2) Albumin 3.0 L g/dL (3.5-5.0) Urine Color YELLOW Urine Appearance CLEAR Urine pH 6.0 (5.0-7.5) Ur Specific [place] 1.006 (1.002-1.030) Urine Protein NEGATIVE (NEGATIVE) Urine Ketones NEGATIVE (NEGATIVE) Urine Blood 1+ H (NEGATIVE) Urine Nitrate NEGATIVE (NEGATIVE) Urine Bilirubin NEGATIVE (NEGATIVE) Urine Urobilinogen NEGATIVE EU (0.2-1.0) Ur Leukocyte Esterase 2+ H (NEGATIVE) Urine RBC 1-3 /hpf (0-3) Urine WBC 15-25 H /hpf (0-3) Ur Epithelial Cells NONE SEEN /lpf (NONE-1+) Urine Bacteria 3+ H /hpf (NONE SEEN) Hyaline Casts 1-5 /lpf (0-1) Ur Culture Indicated? INDICATED H (NI) Urine Glucose NEGATIVE (NEGATIVE) Medications Given: Discontinued Medications Acetaminophen (Tylenol) 1,000 mg PO EDNOW ONE Stop: 11/04/16 14:45 Last Admin: 11/04/16 14:45 Dose: 1,000 mg Sodium Chloride (Ns) 1,000 mls @ 0 mls/hr IV ONCE ONE PRN Reason: Wide Open Stop: 11/04/16 13:19 Last Admin: 11/04/16 14:00 Dose: 1,000 mls Ertapenem 1 gm/ Sodium (Chloride) 100 mls @ 200 mls/hr IV EDNOW ONE PRN Reason: Protocol Stop: 11/04/16 15:46 Last Admin: 11/04/16 16:01 Dose: 100 mls Departure - Departure Disposition: [facility] Inpatient Acute Clinical Impression: TIA (transient ischemic attack) Qualifiers: Transient cerebral ischemia type: unspecified Qualifier Code: (G45.9) Transient cerebral ischemic attack, unspecified Decubitus ulcer of ankle, stage 2 Qualifiers: Laterality: unspecified laterality Qualifier Code: (L89.502) Pressure ulcer of unspecified ankle, stage 2 Condition: Fair
[2016-11-04 13:28] LABS: % IMMATURE GRANULYOCYTES 1.1 % (0.0-1.1); ABSOLUTE IMMATURE GRANULOCYTES 0.12 10^3/uL (0.00-0.10); ADD DIFF? NO; ADD MORPH? NO; ADD SCAN? NO; ATYPICAL LYMPHOCYTE FLAG 0 (0-99); FRAGMENT RBC FLAG 0 (0-99); HEMATOCRIT 29.2 % (38.0-47.0); HEMOGLOBIN 10.1 g/dL (12.6-16.3); LEFT SHIFT FLG 0 (0-99); LIPEMIA HEMOLYSIS FLAG 90 (0-99); MEAN CELL HEMOGLOBIN CONCENTR. 34.6 g/dL (32.4-36.7); MEAN CELL VOLUME 95.4 fL (81.5-99.8); MEAN PLATELET VOLUME 8.9 fL (8.7-11.7); PLATELET CLUMPS FLAG 20 (0-99); PLATELET COUNT 218 10^3/uL (150-400); RED BLOOD CELL COUNT 3.06 10^6/uL (4.18-5.33); RED CELL DISTRIBUTION WIDTH 13.4 % (11.5-15.2)
[2016-11-04 13:41] LABS: ALANINE AMINOTRANSFERASE 18 IU/L (9-52); ALKALINE PHOSPHATASE 71 IU/L (38-126); ANION GAP 9 mEq/L (8-16); ASPARTATE AMINOTRANSFERASE 17 IU/L (14-46); BILIRUBIN,TOTAL 0.8 mg/dL (0.1-1.4); BILIRUBIN-CONJUGATED 0.4 mg/dL (0.0-0.5); BILIRUBIN-UNCONJUGATED 0.4 mg/dL (0.0-1.1); CARBON DIOXIDE 27 mEq/l (22-31); CHLORIDE 97 mEq/L (97-110); CREATININE 1.1 mg/dL (0.6-1.0); GLOMERULAR FILTRATION RATE 48; GLUCOSE 206 mg/dL (70-100); POTASSIUM 4.2 mEq/L (3.5-5.2); SODIUM 133 mEq/L (134-144); TOTAL PROTEIN 5.6 g/dL (6.3-8.2)
[2016-11-04 13:42] LABS: INR 1.17 (0.83-1.16); PROTIME(PATIENT) 14.9 SEC (12.0-15.0)
[2016-11-04 13:43] LABS: APTT 24.2 SEC (23.0-38.0)
[2016-11-04 13:50] LABS: TROPONIN I < 0.012 ng/mL (0-0.034)
--- NOTE | 2016-11-04 14:08 | CPEKG ---
Heart Rate: 65 RR Interval: 923 P-R Interval: 188 QRSD Interval: 170 QT Interval: 496 QTC Interval: 516 P [place]: 64 QRS [place]: -21 T Wave [place]: 120 EKG Severity - ABNORMAL ECG - EKG Impression: SINUS RHYTHM EKG Impression: PROBABLE LEFT ATRIAL ABNORMALITY EKG Impression: LEFT BUNDLE BRANCH BLOCK EKG Impression: Similar to previous Electronically Signed By: Imer Cohn 04-Nov-2016 14:15:26
--- NOTE | 2016-11-04 14:22 | CT ---
CT Brain (Without Contrast) at 1348 hours History: Left-sided weakness, transient ischemic attack, recent parenchymal hemorrhages from fall in September 2016. Comparison: October 23, 2016. Technique: Axial computed tomographic images of the brain without contrast. Dose reduction techniques were utilized. Findings: Linear minimal residual left parieto-occipital subarachnoid hemorrhage, on image number 23 of series 2, appears smaller. Multiple prior intraparenchymal hemorrhages and subarachnoid hemorrhag es have almost completely resolved. No new foci of acute hemorrhage. Ventricles, cisterns, and sulci are widened consistent with atrophy. No hydrocephalus, midline shift/herniation, or epidural/subdural hematomas. Cerebrovascular atherosclerosis. Hypodensities in the white matter of bilateral cerebra l hemispheres. Bone windows demonstrate no displaced fractures. Moderate mucosal thickening in the r ight maxillary sinus. Impression: 1. Almost complete resolution of previous multiple bilateral subarachnoid and intervertebral hemorrha ges with residual subarachnoid hemorrhage of the left parieto-occipital lobe. 2. No new foci of acute hemorrhage, hydrocephalus, or mass effect. 3. Cerebrovascular atherosclerosis. 4. No definite acute infarct. 5. Moderate diffuse atrophy and moderate microvascular ischemic gliosis. 6. Right maxillary sinusitis. 7. Consider MRI of the brain without and with contrast enhancement, if there is continued clinical co ncern. Findings and recommendations discussed with Emergency Department physician, Dr. Imer Cohn, at 140 0 hours today. Final report concurs with initial preliminary interpretation.
[2016-11-04 14:33] LABS: COLOR YELLOW; LEUKOCYTE ESTERASE,URINE 2+ (NEGATIVE); NITRITE,URINE NEGATIVE (NEGATIVE)
[2016-11-04 14:40] LABS: BACTERIA 3+ /hpf (NONE SEEN); WBC,URINE 15-25 /hpf (0-3)
[2016-11-04] MEDS ORDERED: ACETAMINOPHEN 500 MG TAB ONE (14:40)
[2016-11-04] MEDS ORDERED: ACETAMINOPHEN 500 MG TAB PO ONE (14:44)
[2016-11-04] MEDS ORDERED: ERTAPENEM 1 GM in NS 100 ML IV ONE (15:17)
--- NOTE | 2016-11-04 15:20 | DX ---
Portable chest - November 04, 2016 History: Cough. Comparison: Portable chest from October 21, 2016. Findings: There is mild peribronchial thickening without focal consolidation. There is no pneumothora x or pleural effusion. Mild cardiomegaly, coronary stent, cardiac stent, and axillary surgical clips are again noted. The bones are stable. Impression: Mild peribronchial thickening suggesting airways disease/bronchitis.
[2016-11-04] MEDS ORDERED: NS 1,000 ML IV SCH (15:30)
[2016-11-04] MEDS ORDERED: ACETAMINOPHEN 325 MG TAB PO PRN (15:31)
[2016-11-04] MEDS ORDERED: ONDANSETRON 4 MG/2 ML VIAL IVP PRN (15:31)
[2016-11-04] MEDS ORDERED: ONDANSETRON DISINTEGRATING 4 MG TAB PO PRN (15:31)
[2016-11-04] MEDS ORDERED: CLINDAMYCIN HCL 300 MG PO SCH (16:00)
--- NOTE | 2016-11-04 16:32 | GHP ---
[f rep st] HISTORY AND PHYSICAL DATE OF ADMISSION: 11/04/2016 CHIEF COMPLAINT: Unknown. HISTORY OF PRESENT ILLNESS: This is an 81-year-old female who was admitted here recently for intrapa renchymal hemorrhage, discharged to [facility] on 10/28/2016. Initially, it was somewhat unclear why she presented to the emergency department. This was clarified by speaking with the physical therapi st at [facility]. Apparently, she was doing physical therapy today when they noticed left arm weakne ss. The patient herself does not really recall this incident. She was sent in for further evaluatio n. Her symptoms have completely resolved and she denies any weakness at all, any loss of sensation. She tells me that she feels "normal," I take that as if she feels as though she is at her baseline. She does tell me that she has been incontinent of urine; however, it is unclear exactly how long she has been incontinent for. She says a few months although I am not totally confident in her history. She was recently admitted here for an intraparenchymal hemorrhage which was nonoperative. This occur red after a fall. When she was discharged, the plan was to restart her antiplatelet medicines on Oct. PAST MEDICAL/SURGICAL HISTORY: 1. Recent intraparenchymal hemorrhage. 2. Coronary artery disease. 3. Aortic stenosis status post recent TAVR. 4. Hypertension. 5. Hyperlipidemia. 6. Parkinson disease. 7. Squamous cell carcinoma of left arm. 8. Cholecystectomy. 9. Colectomy. 10. Hernia repair. 11. Bilateral mastectomy. 12. Seroma removal in September. 13. TAVR. 14. Umbilical hernia. 15. Appendectomy. 16. Tonsillectomy. 17. Tubal ligation. 18. Hysterectomy. MEDICATIONS: Please see medication reconciliation. ALLERGIES: Include vancomycin, anise, mustard, diphenhydramine, aspirin, bacitracin, banana, Ceclor, chlorpheniramine, egg, Epogen, Neosporin, iodine, Levaquin, mepivacaine, metformin though she is on metformin, Naprosyn, omeprazole, penicillins, polymyxin, procaine, soap, Bactrim and hyperthyroid med ications. SOCIAL HISTORY: She has recently been staying at [facility]. Prior to this, she lived with her [facility] and as well as her son. She does not drink or smoke. FAMILY HISTORY: Parents are . REVIEW OF SYSTEMS: Ten-point review of systems is conducted and is negative except per HPI. PHYSICAL EXAMINATION: VITAL SIGNS: Blood pressure 159/72, heart rate is 78, respiration rate 16, sa turating 99% on room air, temperature is 36.5. GENERAL: The patient is a pleasant female who appears mildly confused otherwise in no acute distress. HEENT: Shows a left-sided ecchymosis over her maxi llary bone which appears to be resolving. CARDIOVASCULAR: Shows regular rate and rhythm. She has a 2/6 systolic murmur. PULMONARY: Lungs clear bilaterally. She is not in any respiratory distress. ABDOMEN: Soft, nontender, nondistended. SKIN: Shows no rash. : Shows no Shrestha. NEUROLOGIC: Shows her to be alert and oriented x3. Motor is intact in the upper and lower extremities 5/5. Sens ation is intact in both the upper and lower extremities. As above, she is slow to remember the date, however, she basically remembers it although she is unsure of the exact day of the month. PSYCHIATR IC: Shows normal mood and affect. LABS: White count is 11.2. INR is 1.1. Lactate is 1.5. Sodium is 133, glucose 206. Urinalysis sh ows 15-25 whites. She has leukocyte esterase, as well as bacteria. DATA: 1. I discussed this with Dr Cohn in the emergency department, we will admit for further evaluatio n of possible TIA. 2. Head CT shows nearly resolved recent hemorrhages, right maxillary sinusitis. 3. ECG, which I personally viewed and interpreted, shows a left bundle branch block. This is an old finding and her EKG is unchanged from prior. 4. Chest x-ray, which I personally reviewed, interpreted shows nothing acute. IMPRESSION AND PLAN: This is an 81-year-old female with recent subarachnoid hemorrhage admitted with possible transient ischemic attack. 1. Possible transient ischemic attack: Symptoms had completely resolved before arriving at the [facility]. This was witnessed by physical therapist at [facility]. We will perform TIA maia p including echocardiogram, monitor on telemetry, carotid ultrasound. I put in a non-urgent Neurolog y consult. 2. Mental status: She is slow to respond, but I believe at her baseline. We will need to discuss f urther with her family to ascertain true baseline. She had been at [facility] recently but previousl y living independently. She may have a urinary tract infection, we will empirically treat this given her incontinence and other neurologic symptoms. 3. Urinary tract infection: Multiple allergies. We will continue Invanz for now. It may be diffic ult to find appropriate oral antibiotic. 4. History of coronary artery disease: Holding her Plavix for now. Initial plan was to restart thi s on November 07. 5. Recent subarachnoid hemorrhage: Appears to have significantly resolved from her prior. I do not think that this is a play in her current presentation. 6. Parkinson's: Continue her Sinemet. 7. Recent TAVR for aortic stenosis. 8. Venous thromboembolism prophylaxis: I will place her on SCDs for now. If she stays for longer w ould discuss with Neurosurgery whether prophylactic Lovenox would be safe for her. 9. Chronic kidney disease: She is at her baseline. 10. Code status: I reviewed her MOLST form which says do not resuscitate. /[id number]/MODL
--- NOTE | 2016-11-04 18:50 | US ---
Bilateral Duplex/Doppler Carotid Sonography History: TIA. Comparison: None available. Technique: The cervical portions of the carotid and vertebral arteries were imaged and interrogated by color and pulsed Duplex/Doppler. Spectral analysis was performed. Findings Right Carotid: Right CCA peak systolic velocity = 58 cm/sec Right ECA peak systolic velocity = 86 cm/sec Right ICA peak systolic velocity = 61 cm/sec Right ICA/CCA systolic velocity ratio = 1.1 Velocities correlate to less than 50% diameter stenosis of the origin of the right internal carotid a rtery with respect to the normal distal internal carotid artery. There is moderate calcified plaque i nvolving the right carotid bulb and proximal right internal carotid artery. Left Carotid: Left CCA peak systolic velocity = 70 cm/sec Left ECA peak systolic velocity = 106 cm/sec Left ICA peak systolic velocity = 76 cm/sec Left ICA/CCA systolic velocity ratio = 1.1 Velocities correlate to less than 50% diameter stenosis of the origin of the left internal carotid ar yosef with respect to the normal distal internal carotid artery. There is moderate calcified plaque in volving the left carotid bulb and proximal left internal carotid artery. Vertebral Arteries: Antegrade flow is shown by pulsed Doppler of each vertebral artery. Impression: 1. No hemodynamically significant stenosis by systolic velocity criteria. 2. Moderate atherosclerosis on grayscale bilaterally. Measurement of carotid stenosis is based on velocity parameters that correlate the residual internal carotid diameter with [place] Symptomatic Carotid Endarterectomy Trial (NASCET) based stenosis levels.
[2016-11-04] MEDS: ATORVASTATIN CALCIUM 10 MG TAB PO SCH (20:10)
[2016-11-04] MEDS: CLINDAMYCIN 150 MG CAP PO SCH (20:10)
[2016-11-04] MEDS: CARBIDOPA/LEVO CR 25 MG/100 MG TAB PO SCH (20:10)
[2016-11-04] MEDS ORDERED: D50W 25 GM/50 ML SYR IVP PRN (20:28)
[2016-11-04] MEDS ORDERED: NON-FORMULARY NEW DRUG (Simvastatin [Zocor] 20 MG) PO SCH (21:00)
[2016-11-05] MEDS: CARBIDOPA/LEVO CR 25 MG/100 MG TAB PO SCH ×5 (00:04→22:21)
[2016-11-05 05:53] LABS: ABSOLUTE IMMATURE GRANULOCYTES 0.09 10^3/uL (0.00-0.10); ADD DIFF? NO; ADD MORPH? NO; ADD SCAN? NO; ATYPICAL LYMPHOCYTE FLAG 10 (0-99); FRAGMENT RBC FLAG 0 (0-99); HEMATOCRIT 25.9 % (38.0-47.0); HEMOGLOBIN 8.7 g/dL (12.6-16.3); LEFT SHIFT FLG 10 (0-99); LIPEMIA HEMOLYSIS FLAG 80 (0-99); MEAN CELL HEMOGLOBIN 32.3 pg (27.9-34.1); MEAN CELL HEMOGLOBIN CONCENTR. 33.6 g/dL (32.4-36.7); MEAN CELL VOLUME 96.3 fL (81.5-99.8); PLATELET CLUMPS FLAG 0 (0-99); PLATELET COUNT 192 10^3/uL (150-400); RED BLOOD CELL COUNT 2.69 10^6/uL (4.18-5.33); RED CELL DISTRIBUTION WIDTH 13.9 % (11.5-15.2)
[2016-11-05 06:13] LABS: ALANINE AMINOTRANSFERASE 20 IU/L (9-52); ALBUMIN 2.5 g/dL (3.5-5.0); ALKALINE PHOSPHATASE 61 IU/L (38-126); ANION GAP 8 mEq/L (8-16); ASPARTATE AMINOTRANSFERASE 16 IU/L (14-46); BILIRUBIN,TOTAL 0.5 mg/dL (0.1-1.4); CALCIUM 8.5 mg/dL (8.5-10.4); CARBON DIOXIDE 26 mEq/l (22-31); CHLORIDE 102 mEq/L (97-110); CHOLESTEROL 88 mg/dL (140-220); CHOLESTEROL/HDL RATIO 2.44 RATIO (1.00-4.44); CREATININE 0.9 mg/dL (0.6-1.0); GLOMERULAR FILTRATION RATE > 60; GLUCOSE 89 mg/dL (70-100); HIGH DENSITY LIPOPROTEIN 36 mg/dL (40-85); LDL/HDL RATIO 0.89 RATIO (1.00-3.22); LOW DENSITY LIPOPROTEIN 32 mg/dL (80-100); NON-HIGH DENSITY LIPOPROTEIN 52 mg/dL (90-129); POTASSIUM 3.6 mEq/L (3.5-5.2); SODIUM 136 mEq/L (134-144); TOTAL PROTEIN 5.2 g/dL (6.3-8.2); TRIGLYCERIDE 100 mg/dL (35-135); VERY LOW DENSITY LIPOPROTEINS 20 mg/dL (8-25)
[2016-11-05] MEDS: LEVOTHYROXINE 100 MCG TAB PO SCH (06:16)
[2016-11-05] MEDS: INSULIN LISPRO 100 UNIT/ML SC SCH ×3 (08:30→17:44)
[2016-11-05] MEDS: DOCUSATE SODIUM 100 MG CAP PO SCH (08:41)
[2016-11-05] MEDS: DOXAZOSIN MESYLATE 1 MG TAB PO SCH (08:42)
[2016-11-05] MEDS: LOSARTAN POTASSIUM 50 MG TAB PO SCH (08:42)
[2016-11-05] MEDS: ERTAPENEM 1 GM in NS 100 ML IV SCH (08:42)
[2016-11-05] MEDS: CLINDAMYCIN 150 MG CAP PO SCH ×3 (08:42→16:04)
--- NOTE | 2016-11-05 09:40 | PDCONSULT ---
Mortgage Lender Note: HOSPITAL NEUROLOGY CONSULT REQUESTING: Sanchez Guy MD REASON: TIA HPI: This is an 81-year-old woman with a history of hypertension, hyperlipidemia, CAD , Parkinson disease and recent subarachnoid hemorrhage/intraparenchymal hemorrhage who presented to our facility yesterday due to a possible TIA. History is provided mainly by record review as the patient is unsure why she is hospitalized. Patient was hospitalized October 21 through October 28 for a subarachnoid hemorrhage. In brief, the patient had apparently fell at home, though it is unclear on records review if the patient had a mechanical fall with trauma or if she fell as a result of her brain bleed. Regardless, patient was hospitalized at our facility on October 21 and found to have a rather diffuse bihemispheric subarachnoid hemorrhage with interval development of left temporal and parietal intraparenchymal hemorrhages. She was treated conservatively with supportive measures without any interval rehab bridge/ worsening of her bleeding. She was discharged to rehabilitation. Apparently at her rehab facility yesterday, physical therapy was concerned about the possibility of some left arm weakness. She was transferred to our emergency department. The patient denied any weakness at that time and was noted to have full power in the extremities. She currently is unsure why she is hospitalized and has no complaints. ROS: As per the HPI, otherwise a complete 12 point ROS was performed and is negative ALLERGIES AND MEDS: As recorded in the EMR - reviewed and reconciled PFSH: As per the intake H&P by Dr. Guy from November 04, 2016 EXAM: GEN: thin elderly woman laying in NAD HEENT: NCAT, sclera anicteric, conjunctiva not injected, MMM, oropharynx clear, no scalp tenderness NECK: supple, nontender, no meningismus CV: RRR s1 s2 wo m/r/c/g. Carotid pulses 2+ wo bruit NEURO: MS: awake, alert, oriented to month/year, hospital (not specific one), self, not situation. Speech nondysarthric. No language disturbance. Follows commands. Attends to both sides. Episodic memory impairment on casual conversation. Mood euthymic. Adequate fund of knowledge. Poor insight. CN: pupils 3mm round and reactive. Fundi with sharp discs. VFF. Primary gaze centered. Reduced vertical gaze. Saccadic intrusion on smooth pursuit. Facial sensation preserved. Face symmetric. Palatoglossal movements intact. Shoulder shrug and head turn strong. MOTOR: reduced bulk throughout. Some mild increased tone in the BUEs. Subtle left hand tremor at rest and with posture. Full power throughout. SENSORY: intact LT/PP throughout. No extinction. COORD: no ataxia FN/TF. Tasneem bradykinetic. REFLEX: plantars upgoing. No clonus. Absent DTRs secondary to activation. GAIT: deferred to PT safety eval DATA: Labs reviewed in EMR CT head wo - near complete resolution of SAH with only minimal sulcal blood products in the left occipitoparietal junction. No IPH. No acute changes. Carotid doppler - < 50% stenosis BICAs LDL 32 TTE pending IMPRESSION AND RECOMMENDATIONS: // POSSIBLE TIA // RECENT SAH/IPH // HTN // HLD // CAD // PARKINSON DISEASE Patient with indication of transient LUE weakness while at PT yesterday. She has no focal deficit. No indication of focal seizure activity in the LUE. Will investigate as she had a TIA, particularly given her recent risk factors. No SHEPHERD to indicate a vasospasm type issue after SAH. I would also like to check her intracranial vessels, as it is unclear why she fell at the presentation of her SAH. Further, her SAH was quite diffuse and not the typical convexity SAH associated with trauma. - holding antiplatelet due to recent SAH - can resume as previously planned if MRA shows no aneurysm - goal normotension - LDL already at goal < 70 - A1c goal < 6.5 - can be checked as outpatient - MRI brain wo to evaluate for ischemia - MRA head wo to evaluate for aneurysm given recent SAH (iodine allergy - no CTA ) - TTE today - PT/OT/GRAIN ELEVATOR CLERK evals - stroke education - cont Sinemet per home regimen - give on empty stomach to prevent protein binding/malabsorption - SCDs, OK for DVT chemoprophylaxis with heparin 5000units SQ BID (if needed) - PPI
--- NOTE | 2016-11-05 10:29 | WOCRNPDOC ---
WOCRN Advanced Assessment Note - Skin Integrity Problem, Advanced Assess Coccyx Dressing Type: Allevyn Life Dressing Description: Clean/Dry, Intact Exudate Amount: Scant Exudate Characteristic(s): Serous Integumentary Issue Intervention: Visualized Under Dressing Christi Wound Tissue: Erythema, Macerated, Painful/Tender Christi Wound Swelling: Mild Wound Bed Color: Yellow Wound Bed Constitution: Adhered Slough Wound Edges: Not Attached Site Measurement - Head-to-Toe Length X Width X Depth (cm): 2.4w3tanefho Pressure Injury Stage: Unstageable Pressure Injury Present on Admit: Yes Skin Integrity Problem Comment: Long standing wound that patient knew about before wound care's assessment. Would benefit from debridement and specialty wound care on discharge. Will initiate enzymatic debridement and follow up on Thursday 11/09 or Friday 11/10.
--- NOTE | 2016-11-05 10:59 | ECHO ---
[id number] + + [address] : : [place] [address] : : [phone] + + Adult Echocardiographic Report + ----+ :Name: CATHRYN HARTMAN HStudy Date: 11/04/2016 03:58 PM : : Hospital Admission Number: [id number] Location : ER: :: 1935 Gender: Female Height: 63 in : :Age: 81 yrs Race: WH Weight: 135 lb : :Reason For Study: TIA : : BSA: 1.6 meters2 : :History: Recent TAVR : + ----+ MMode/2D Measurements & Calculations LVIDd: 4.4 cm EDV(Teich): LVOT diam: 1.6 cm LVLd ap4: 7.5 cm 86.8 ml LVOT area: EDV(MOD-sp4): 2.0 cm2 59.0 ml LVLs ap4: 6.2 cm ESV(MOD-sp4): 21.0 ml EF(MOD-sp4): 64.4 % SV(MOD-sp4): 38.0 ml Normal Measurement Values: + + :LVIDd (3.5-5.7cm) IVSd (0.6-1.1cm) LVPWd (0.6-1.1cm) Aortic Root (2.0-3.7cm)Left Atrium (1.5-4.0cm): :LV Vol(d) (76-115ml) LV Vol(s) (29-48ml) Ejec Fraction (50-65%)PV Carloz (0.6- 1.2m/s) TV Carloz (0.4-1.0m/s) : :MV E Carloz (0.8-1.0m/s)MV A Carloz (0.3-1.0m/s)LVOT Carloz (0.7-1.2m/s) Asc Ao Carloz ( 0.9-1.8m/s) : + + Doppler Measurements & Calculations MV E max carloz: MV V2 max: MV P1/2t max carloz: Ao V2 max: 121.0 cm/sec 160.5 cm/sec 111.0 cm/sec 212.8 cm/sec MV A max carloz: MV max PG: MV P1/2t: 191.2 msec Ao max P.0 cm/sec 10.3 mmHg MVA(P1/2t): 1.2 cm2 18.5 mmHg MV E/A: 0.70 MV V2 mean: MV dec slope: Ao mean PG: MV dec time: 104.0 cm/sec 10.2 mmHg 0.41 sec MV mean P.0 cm/sec2 Ao V2 mean: 5.0 mmHg 146.6 cm/sec MV V2 VTI: Ao V2 VTI: 48.6 cm 47.0 cm MVA(VTI): JONO(I,D): 0.77 cm2 0.80 cm2 JONO(V,D): 0.80 cm2 LV V1 max: SV(LVOT): 37.4 ml TR max carloz: 85.0 cm/sec 250.0 cm/sec LV V1 max PG: TR max P.0 mmHg 2.9 mmHg RAP systole: 5.0 mmHg LV V1 mean PG: RVSP(TR): 30.0 mmHg 2.0 mmHg LV V1 mean: 66.2 cm/sec LV V1 VTI: 18.6 cm Left Ventricle The left ventricle is normal in size. There is mild concentric left ventricular hypertrophy. Left ventricular systolic function is normal. Ejection Fraction = 65-70%. No regional wall motion abnormalities noted. Right Ventricle The right ventricle is normal in size and function. Atria The left atrium is moderately dilated. Right atrial size is normal. The interatrial septum is intact with no evidence for an atrial septal defect. Mitral Valve Severely calcified mitral leaflets. There is no evidence of mitral valve prolapse. There is mild to moderate mitral stenosis. MV mean PG is 5mmHG. There is trace mitral regurgitation. Tricuspid Valve Normal tricuspid valve. There is mild tricuspid regurgitation. Right ventricular systolic pressure is normal. Aortic Valve Mild valvular aortic stenosis. AV max PG is 25mmHG. AV mean PG is 14mmHG. Trace aortic regurgitation. Pulmonic Valve The pulmonic valve is normal in structure and function. There is no pulmonic valvular regurgitation. Great Vessels The aortic root is normal size. Pericardium/Pleural Trivial anterior pericardial effusion. Conclusion A complete two-dimensional transthoracic echocardiogram was performed (2D, M-mode, Doppler and color flow Doppler). Left ventricular systolic function is normal. There is mild concentric left ventricular hypertrophy. Ejection Fraction = 65-70%. The left atrium is moderately dilated. Severely calcified mitral leaflets. There is mild to moderate mitral stenosis. MV mean PG is 5mmHG. There is trace mitral regurgitation. There is mild tricuspid regurgitation. Right ventricular systolic pressure is normal. Mild valvular aortic stenosis. AV max PG is 25mmHG. AV mean PG is 14mmHG. Trace aortic regurgitation. Trivial anterior pericardial effusion Final Reading Physician: Paul Kamara signed on 11/05/2016 10:58 AM Ordering Physician: Sanchez Guy Performed By: Payal Dumont, [employer]
[2016-11-05] MEDS: COLLAGENASE 30 GM OINTMENT TP SCH (11:38)
--- NOTE | 2016-11-05 13:00 | SOAPPROG ---
SOAP Progress Note Assessment/Plan: Assessment: 81yo female seroma removal right chest with subsequent wound infection, s/ another admit SAH and this admit for possible TIA PE awake alert, in chair eating, alone Chest Right chest 3xx3 area of mild erythema with some slough, unable to express any fluid or true fluctuance Plan: may need I&D eventually and/or debridement. will see again on Wednesday, returned with Dr Radford for further eval and pt not in room 11/05/16 12:58 Objective: Vital Signs Temp Pulse Resp BP Pulse Ox 36.4 C 63 14 124/50 H 100 11/05/16 11:50 11/05/16 11:50 11/05/16 11:50 11/05/16 11:50 11/05/16 11:50 Laboratory Results 11/05/16 05:28 11/05/16 05:28 11/04/16 11/05/16 11/06/16 05:59 05:59 05:59 Intake Total 1100 Balance 1100 PT 14.9 SEC (12.0-15.0) 11/04/16 13:05 INR 1.17 (0.83-1.16) H 11/04/16 13:05 ICD10 Worksheet Patient Problems: Problems Problem Status Diagnosed Decubitus ulcer of ankle, stage 2 Acute TIA (transient ischemic attack) Acute Aortic sclerosis Acute Aortic stenosis Acute Breast CA Acute Fall Acute Intracranial hemorrhage Acute Parkinsons disease Acute
--- NOTE | 2016-11-05 14:07 | MR ---
MR Arteriogram of the [place] of [place] November 05, 2016 Indication: TIA. R29.818 Neurological changes strongly suggesting intracerebral aneurysm. Technique: A yrih-be-ghufzl gradient echo technique was used for thin axial images at the skull base for evaluation of major vessels of the [place]. Three-dimensional technique was used with a 30-degree gradient echo flip angle and a traveling saturation band. Images were manipulated by the r adiologist at the computer workstation. Findings: Normal anterior and posterior circulation. No intracranial aneurysm, vascular malformation , or filling defect. Subacute intraparenchymal hemorrhage in the left frontal and temporal lobe are b ian characterized on dedicated MRI of the brain. Impression: Normal MRA of the brain.
--- NOTE | 2016-11-05 14:07 | MR ---
MRI Brain Without Contrast dated November 05, 2016 Indication: 81-year-old woman with recent traumatic injury. Questionable TIA. Technique: Sagittal and axial T1, axial T2, FLAIR, susceptibility weighted, and diffusion-weighted im aging. Comparison: CT of the head dated October 23, [address] head dated November 04, 2016. Findings: No evidence of acute ischemia. Moderate periventricular and subcortical white matter diseas e is present throughout the frontoparietal, and occipital lobes on the FLAIR weighted sequence. Two residual subacute intraparenchymal hemorrhagic contusions in the posterior left frontal and mid l eft temporal lobe are hyperintense on FLAIR, T2 and diffusion-weighted imaging and have a hypointense hemosiderin ring on the susceptibility weighted sequence. The posterior left frontal lobe subacute h ematoma measures 1.5 x 1.2 cm. A subacute hematoma in the left temporal lobe measures 2.4 x 1.7 cm. Trace residual subacute subdural blood along the left posterior left temporoparietal distribution and right temporal lobe measures 2 mm in thickness and are best demonstrated as hyperintense signal on t he FLAIR weighted sequence. Minimal residual subarachnoid blood is present along the high right frontal, left parietal, occipital , and high left paramedian parietal lobe along the falx. Minimal residual blood products are present in the right side of the tectum evidenced by 4 x 5 mm focus of susceptibility artifact on the SWI seq uence. The ventricular system is normal in caliber and midline. No shift or mass effect. Impression: 1. No evidence of acute ischemia. 2. Small residual subacute intraparenchymal hematomas in the left frontal and temporal lobes. 3. Tiny residual subacute subdural hematomas along the left temporoparietal and right temporal distri bution. 4. Trace residual subarachnoid blood along the right frontal and left parietal lobe. 5. Minimal subacute hemorrhage in the right tectum. 6. No shift or mass effect. 7. Diffuse moderate white matter disease.
--- NOTE | 2016-11-05 14:50 | HOSPPROG ---
Hospitalist Progress Note Assessment/Plan: Karl is an 81-year-old female who was recently admitted to [facility] for an intra parenchymal hemorrhage. She was subsequently discharged to [facility] on October 28. While doing physical therapy at [facility] is noted that she had left arm weakness she was admitted for further care. #. TIA * CT of head shows almost complete resolution of recent SAH/ nothing acute * MRI shows nothing acute * carotid doppler shows no flow limiting stenosis * appreciate neurology * LDL is 32 * will check hgbA1c * when I evaluated her, symptoms had resolved/ I have cared for her on past admission and she is at her baseline #. R Chest wall seroma removal with wound infection * had been on oral clindamycin in the OP setting * started on Ertapenem for a uti * will discuss with ID abx treatments/ patient has multiple allergies * wound care seeing her * Dr Radford following #. UTI * Ertapenem * sensitivities are pending #. Recent SAH * imaging on this admission shows improvement #. Parkinsons * sinemet #. Anemia * close to her baseline on last admission #. CAD * Plavix to be resumed November 07/ she had recent SAH #. TAVR for treatment of /done this past fall #. CKD: creat is 0.9 #. DVT prophyaxis: mary ann vogel/ if she stays will discuss w Neurosurgery for LMWH treatment #. Plan: reviewed her care with Dr Radford, she will need another midnight stay for further evaluation of r chest wall infection. Cont Invanz, discuss tomorrow w ID further abx options. Subjective: Pineda has no c/o pain. Objective: Vital Signs Temp Pulse Resp BP Pulse Ox 36.4 C 63 14 124/50 H 100 11/05/16 11:50 11/05/16 11:50 11/05/16 11:50 11/05/16 11:50 11/05/16 11:50 Laboratory Results 11/05/16 05:28 11/05/16 05:28 11/04/16 11/05/16 11/06/16 05:59 05:59 05:59 Intake Total 1100 Output Total 600 Balance 1100 -600 PT 14.9 SEC (12.0-15.0) 11/04/16 13:05 INR 1.17 (0.83-1.16) H 11/04/16 13:05 - Physical Exam Constitutional: no apparent distress, chronically ill appearing Eyes: PERRL Ears, Nose, Mouth, Throat: hearing normal Cardiovascular: regular rate and rhythym, systolic murmur Respiratory: no respiratory distress Gastrointestinal: normoactive bowel sounds Skin: other (right cw area with a open wound approximately size of large almong / has redness around the edges w some minimal yellow drainage) Neurologic: other (alert and oriented to herself and place/ very soft spoken) Psychiatric: interacting appropriately, not anxious ICD10 Worksheet Patient Problems: Problems Problem Status Diagnosed Decubitus ulcer of ankle, stage 2 Acute TIA (transient ischemic attack) Acute Aortic sclerosis Acute Aortic stenosis Acute Breast CA Acute Fall Acute Intracranial hemorrhage Acute Parkinsons disease Acute
[2016-11-05] MEDS: ATORVASTATIN CALCIUM 10 MG TAB PO SCH (20:42)
[2016-11-06] MEDS: CARBIDOPA/LEVO CR 25 MG/100 MG TAB PO SCH ×2 (06:07→12:43)
[2016-11-06] MEDS: LEVOTHYROXINE 100 MCG TAB PO SCH (06:07)
[2016-11-06 08:23] VITALS: RESP 21
[2016-11-06] MEDS: DOXAZOSIN MESYLATE 1 MG TAB PO SCH (09:42)
[2016-11-06] MEDS: LOSARTAN POTASSIUM 50 MG TAB PO SCH (09:42)
[2016-11-06] MEDS: DOCUSATE SODIUM 100 MG CAP PO SCH (09:42)
[2016-11-06] MEDS: ERTAPENEM 1 GM in NS 100 ML IV SCH (09:44)
[2016-11-06] MEDS: INSULIN LISPRO 100 UNIT/ML SC SCH ×2 (09:58→12:43)
[2016-11-06 11:54] LABS: HEMOGLOBIN A1C 6.1 % (4.0-6.0)
--- NOTE | 2016-11-06 11:59 | GCON ---
[f rep st] CONSULTATION INFECTIOUS DISEASE CONSULTATION. DATE OF CONSULTATION: 11/06/2016 PROVIDER REQUESTING CONSULTATION: Jennifer Hill NP REASON FOR CONSULTATION: Query infection and multiple antibiotic allergies. HISTORY OF PRESENT ILLNESS: This is an 81-year-old woman with a past medical history of Parkinson's and bilateral mastectomy whose most current problems date back to October 16 when patient underwent excision of right chest seroma. Subsequently, patient had a fall at home and sustained a subarachnoid hemorrhage that required ICU monitoring on 10/21/2016. Seroma maintained a drain in place throughout this hospitalization until the when it was removed. At that time, surgical services felt the skin surrounding was somewhat erythematous, and patient was placed on clindamycin. The patient was discharged to assisted facility for rehab, but returned on the 04 of November for recurrent mental status changes. The patient was felt to have a TIA , and is currently admitted for ongoing management. ID is consulted to comment on right chest wall wound and urinary findings in light of patient's multiple antibiotic allergies. 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 She does not endorse urinary symptomatology suggestive of UTI today. Further, she has no complaints related to her right chest wall wound. PAST MEDICAL HISTORY: Includes aortic valve stenosis, asthma, breast cancer, coronary artery disease, congestive heart failure, type 2 diabetes, gastroesophageal reflux disease, hypertension, hypothyroidism, mitral regurgitation, primary parkinsonism. PAST SURGICAL HISTORY: Appendectomy, colon resection, cholecystectomy, hysterectomy, bilateral mastectomy, thyroidectomy, toe amputation, tonsillectomy , tubal ligation. SOCIAL HISTORY: She has 4 children. No alcohol or tobacco. She is . FAMILY HISTORY: Positive for diabetes, hypertension. ALLERGIES: Are extensive, and I will review only the antibiotic allergies here which include: 1. Bactrim. 2. Cephalosporins. 3. Erythromycin. 4. Levofloxacin. 5. Macrolides. 6. Penicillin. 7. Sulfonamides. Upon questioning, it appears that patient only has rashes to these agents and she denies ever having airway issues related to receiving these antibiotics. But, as mentioned above, she is a poor historian and I am in the process of trying to get a hold of family to sort out these allergies. MEDICATIONS: Tylenol, Norvasc 10 mg daily, Lipitor 10 mg daily, Sinemet 2 tabs p.o. 3 times daily, ertapenem 1 g IV daily started 11/04/2015, Synthroid 100 mg daily, Humalog, losartan 50 mg daily, and Zofran as needed. REVIEW OF SYSTEMS: Based on discussion with nursing and pointed questions to the patient, her review of systems is negative. PHYSICAL EXAM: VITAL SIGNS: Blood pressure is 132/61, saturation 96% on room air with a respiratory rate between 16 and 21. Her heart rate is 60, her temperature is 36.7, and she has been afebrile throughout her hospital course. GENERAL: This is a chronically ill-appearing woman who is thin, lying in bed, in no respiratory distress. HEENT: She appears to be moving her eyes in all directions appropriately. Her oropharynx is extremely dry with no obvious dental caries or ulcerations. NECK: Supple. CARDIOVASCULAR: Regular rate and rhythm with a systolic murmur. Her chest wall has a wound that is approximately 2 cm x 2 cm which was examined with the surgical services. There is no erythema of the skin. When the packing was removed, approximately 10 mL of purulent material was easily expressed. The area was nontender to the patient, and the wound tracked 1 or 2 cm in all directions. ABDOMEN: Scaphoid , soft and nontender. : No Shrestha. EXTREMITIES: No clubbing, cyanosis, or edema. NEUROLOGIC: Patient seemed to respond appropriately to questions albeit , slowly. A detailed motor test was not performed. LABORATORY: Initially, white count was 11 today, yesterday was 8.7, hematocrit 25, platelets of 192. Creatinine 0.9, AST 16, ALT 20. Urinalysis showed 15-25 WBCs, positive leuko esterase, negative glucose, negative nitrite. IMAGING: A brain MRI was performed that showed no acute ischemia, small residual subacute intraparenchymal hematomas in the left frontal and temporal lobes without mass effect with diffuse moderate white matter disease. Chest x- ray was not performed during this hospitalization. ASSESSMENT AND PLAN: This is an 81-year-old woman with multiple medical problems. We are asked to comment on: 1. Right chest wound. Although there was a significant amount of purulence expressed at the time of exam, there was no erythema of the surrounding skin. Therefore, antibiotics not likely needed. Discussed with surgical services opening her wound further to allow for better drainage. At this point, I am not concerned for deeper infection. Culture of the chest wall was obtained in case of decompensation, and in the future, can direct antibiotic therapy toward organisms identified there 2. Urinary abnormalities. The patient does not have symptoms currently, but she is a poor historian. Will plan a total of 3 days of ertapenem, which she is tolerating, and discontinue. 3. We will try to sort out patient's multiple antibiotic allergies. /[id number]/MODL MTDD
--- NOTE | 2016-11-06 12:11 | SOAPPROG ---
SOAP Progress Note Assessment/Plan: Assessment: 81yo female seroma removal right chest with subsequent wound infection, s/ another admit SAH and this admit for possible TIA denies pain, tolerating regular diet. PE mask-like facies Chest right chest wound 1.5 x 1.5cm circular wound with foul smelling serous/ pus discharge Plan seen by Dr Radford wound irrigated and repacked pt can go home with home care with 1-2x/day dressing change, will put info in d/ c summary. 11/05/16 12:58 11/06/16 12:08 Objective: Vital Signs Temp Pulse Resp BP Pulse Ox 36.7 C 60 21 H 132/61 H 96 11/06/16 08:00 11/06/16 08:00 11/06/16 08:00 11/06/16 09:42 11/06/16 08:00 Microbiology 11/06/16 09:58 Gram Stain - Final Chest - Swab 11/05/16 11/06/16 11/07/16 05:59 05:59 05:59 Intake Total 790 Output Total 750 Balance 40 PT 14.9 SEC (12.0-15.0) 11/04/16 13:05 INR 1.17 (0.83-1.16) H 11/04/16 13:05 ICD10 Worksheet Patient Problems: Problems Problem Status Diagnosed Decubitus ulcer of ankle, stage 2 Acute TIA (transient ischemic attack) Acute Aortic sclerosis Acute Aortic stenosis Acute Breast CA Acute Fall Acute Intracranial hemorrhage Acute Parkinsons disease Acute
[2016-11-06 13:28] VITALS: BP 138/53; PULSE 51; TEMP 98.2; O2SAT 98
--- NOTE | 2016-11-06 13:56 | HOSPPROG ---
Hospitalist Progress Note Assessment/Plan: Karl is an 81-year-old female who was recently admitted to [facility] for an intra parenchymal hemorrhage. She was subsequently discharged to [facility] on October 28. While doing physical therapy at [facility] is noted that she had left arm weakness she was admitted for further care. #. TIA * CT of head shows almost complete resolution of recent SAH/ nothing acute * MRI shows nothing acute * carotid Doppler shows no flow limiting stenosis * appreciate neurology * LDL is 32 * hgbA1c 6.1/elevated but slightly * tele showing sinus #. R Chest wall seroma removal with concern wound infection * had been on oral clindamycin in the OP setting * dc/ likely needs repeat I & D/further f/u with Dr Radford #.? UTI/pyuria * treated w Ertapenem #. Recent SAH * imaging on this admission shows improvement #. Parkinsons * sinemet #. Anemia * close to her baseline on last admission #. CAD * Plavix to be resumed November 07/ she had recent SAH #. TAVR for treatment of /done this past fall #. CKD: most recent creat is 0.9 #. DVT prophyaxis: mary nan vogel #.Plan: dc to IP rehab Subjective: Karl is tired/ has no complaints. Objective: Vital Signs Temp Pulse Resp BP Pulse Ox 36.8 C 51 L 21 H 138/53 H 98 11/06/16 12:00 11/06/16 12:00 11/06/16 12:00 11/06/16 12:00 11/06/16 12:00 Microbiology 11/06/16 09:58 Gram Stain - Final Chest - Swab 11/05/16 11/06/16 11/07/16 05:59 05:59 05:59 Intake Total 790 Output Total 750 Balance 40 PT 14.9 SEC (12.0-15.0) 11/04/16 13:05 INR 1.17 (0.83-1.16) H 11/04/16 13:05 - Physical Exam Constitutional: chronically ill appearing Eyes: PERRL Ears, Nose, Mouth, Throat: hard of hearing Cardiovascular: regular rate and rhythym Respiratory: no respiratory distress, reduced air movement Gastrointestinal: normoactive bowel sounds Musculoskeletal: generalized weakness Neurologic: other (alert and oriented to herself, family and place) Psychiatric: interacting appropriately, poor judgement, poor memory ICD10 Worksheet Patient Problems: Problems Problem Status Diagnosed Decubitus ulcer of ankle, stage 2 Acute TIA (transient ischemic attack) Acute Aortic sclerosis Acute Aortic stenosis Acute Breast CA Acute Fall Acute Intracranial hemorrhage Acute Parkinsons disease Acute
--- NOTE | 2016-11-06 14:18 | PDIAF ---
- Diagnosis Diagnosis: TIA/ RECENT SAH Code Status: Do Not Resuscitate - Medication Management Discharge Medications: Medications to Continue on Transfer Carbidopa/Levo Cr 25/100Mg [Sinemet CR 25/100 MG (*)] 2 tab PO TID@1200,1800, 2300 10/21/16 [Last Taken 11/03/16 23:00] Carbidopa/Levo Cr 25/100Mg [Sinemet CR 25/100 MG (*)] 3 tab PO DAILY@07 [Last Taken 11/04/16] Cholecalciferol Vit D3 [Vitamin D3 (*)] 1,000 units PO BID 10/21/16 [Last Taken 11/04/16 AM DOSE] Clopidogrel Bisulfate [Clopidogrel] 75 mg PO DAILY 10/21/16 [Last Taken 10/28/16 ] Docusate Sodium [Colace 100 MG (*)] 300 mg PO DAILY 10/21/16 [Last Taken ] Doxazosin Mesylate [Cardura 1 MG (*)] 1 mg PO DAILY 10/21/16 [Last Taken ] Furosemide [Lasix 40 MG (*)] 60 mg PO DAILY 10/21/16 [Last Taken 11/04/16] Levothyroxine [Synthroid 100 mcg (*)] 100 mcg PO DAILY06 10/21/16 [Last Taken ] Losartan Potassium [Cozaar 50 mg (*)] 50 mg PO DAILY 10/21/16 [Last Taken ] Multivitamins [Multivitamin (*)] 1 each PO DAILY 10/21/16 [Last Taken 11/04/16] Simvastatin [Zocor] 20 mg PO HS 10/21/16 [Last Taken 11/03/16] amLODIPine BESYLATE [Norvasc 10 mg (*)] 10 mg PO HS 10/21/16 [Last Taken ] metFORMIN HCL [Glucophage 850 mg (*)] 850 mg PO BIDMEAL 10/21/16 [Last Taken 09/10 AM DOSE] Acetaminophen [Tylenol 325mg (*)] 650 mg PO Q6H PRN 11/04/16 [Last Taken ] Clindamycin HCl [Clindamycin] 300 mg PO QID@08,12,16,20 11/04/16 [Last Taken 09/10 08:00] Acetaminophen [Tylenol 325mg (*)] 650 mg PO Q4HRS PRN #0 tab 11/06/16 [Last Taken Unknown] Insulin Lispro [humALOG LISPRO 100 units/ml (*)] 0 unit SC TIDMEAL #0 unit 11/06 [Last Taken Unknown] Discharge Medications: Refer to the Discharge Home Medication list for PRN reason. - Orders Services needed: Registered Nurse, Physical Therapy, Occupational Therapy Diet Texture: Regular Texture Diet Wound Care Instructions: patient to follow up at outpatient wound healing center in 1-2 weeks after discharge for wound care management of coccyx pressure injury. Wound orders: Daily and prn. 1. Clean with ns and gauze. Do not use wound cleanser. 2. Apply skin prep extensively angella wound. 3. Apply a thick layer of Santyl to yellow wound bed. Should be thicker than a quarter thick. 4. Cover with a small piece of telfa cut just to fit over the wound. 5. Secure with tegaderm. May apply a foam dressing over wound for padding. Patient to sit for no more than one hour 3 times a day. Do Q 15 min weight shifts. In bed turn patient side to side. Michela YO. In regards to chest wound patient should follow up with Dr Radford in approx 10days, please call for an appointment [phone]. In the meantime right chest wound packing should be changed twice daily or at least once daily. Remove packing and irrigate with saline, approx 20cc, then repack with 1/2 inch iodoform packing, may take approx 2 feet of packing, pack laterally. Then cover with gauze. Any questions please call same office number and ask to speak with Benjamín HANNAH Additional: PLAVIX CAN BE RESUMED October, HOLD METFORMIN FOR 2 MORE DAYS. - Labs/Radiology BMP Date: 11/13/15 CBC Date: 11/13/15 - Follow Up Care Current Providers and Referrals: Patient,NotPresent [Unknown] - As per Instructions Leonard Radofrd MD [Medical Doctor] -
[2016-11-06] MEDS: COLLAGENASE 30 GM OINTMENT TP SCH (15:20)
--- NOTE | 2016-11-07 03:26 | GDS ---
[f rep st] DISCHARGE SUMMARY DISCHARGE DIAGNOSES: 1. Likely transient ischemic attack. 2. Right chest wall seroma removal/initial concern for wound infection. 3. Questionable urinary tract infection, pyuria. 4. Recent subarachnoid hemorrhage. 5. Parkinson's. 6. Anemia. 7. Coronary artery disease. 8. Transcatheter aortic valve replacement (TAVR) for aortic stenosis (). 9. Chronic kidney disease. CONSULTATIONS: DO Helen Cloud MD BRIEF HISTORY: Pineda Hamm is an 81-year-old female, who was recently admitted for intraparenchymal hemorrhage, and discharged to [facility] on October 28, 2016. She presented to the emergency room af ter doing physical therapy and they noted that she had left arm weakness. She did not recall this in cident. She was admitted to the hospital. She had a head CT, which showed nearly resolved recent he morrhages, right maxillary sinus. She had a brain MRI performed which showed no evidence of acute is chemia. She has a small residual subacute intraparenchymal hematoma of the left frontal and temporal lobes, as well as tiny residual subacute subdural hematomas along the left temporal parietal and rig ht temporal distribution. Head MRA was noted to be normal, and carotid Doppler studies did not show any flow-limiting stenosis. In addition, an echocardiogram was performed. It showed LVH with an EF of 65% to 70%. Left atrium was moderately dilated. She has severely calcified mitral leaflets, mild to moderate mitral stenosis. She was monitored on telemetry. She has been in sinus rhythm. Of note, she has a left bundle branch block that has been present. Her symptoms improved. She will be discharged today to inpatient reha bilitation facility. HOSPITAL COURSE: Per problem: 1. TIA. There was nothing acute noted in her imaging studies. She will go to rehabilitation today. 2. Right chest wall seroma. She was seen and evaluated by Infectious Disease. Recommend that she n eeds further repeat I and D. Dressing changes have been noted and will be continued. 3. Concern for urinary tract infection. She received 3 doses of ertapenem. Will discontinue this a t this time. She is unable to tell me if she is symptomatic. 4. Recent subarachnoid hemorrhage. Her imaging on this admission shows improvement. 5. Parkinson's. Sinemet. 6. Anemia. Close to her baseline. 7. Coronary artery disease. Plavix to be resumed November 07. 8. TAVR. This is stable. 9. Chronic kidney disease. Her most recent creatinine is 0.9. PENDING LABS AND TESTS: None. CONDITION AT DISCHARGE: Stable. Blood pressure is 138/53, heart rate 51, respiratory rate is 21, O2 sats on room air 98%, temperature is 36.8 Celsius. MEDICATIONS AT DISCHARGE: Please see the EMR. DISCHARGE INSTRUCTIONS: 1. Detailed instructions on wound care for the right chest wall seroma removal have been written out for her at rehab. In addition, [facility]. 2. If she had fever, chills, chest pain, shortness of breath, or any stroke-like symptoms, return to the emergency room. Greater than 30 minutes discharging and coordinating care. /[id number]/MODL
== END 2016-11-06 15:38 | DRG 69 ==
LOC: EDUNIT# → F3N 19:28 → OBSVTOIN 11-05 14:49
PROVIDERS: ADMIT Student in an Organized Health Care Education/Training Program; ATTEND Student in an Organized Health Care Education/Training Program
DX: G45.9 Transient cerebral ischemic attack, unspecified (principal); N39.0 Urinary tract infection, site not specified; L89.150 Pressure ulcer of sacral region, unstageable; G20 Parkinson's disease; I25.10 Atherosclerotic heart disease of native coronary artery without angina pectoris; I12.9 Hypertensive chronic kidney disease with stage 1 through stage 4 chronic kidney disease, or unspecified chronic kidney disease; N18.9 Chronic kidney disease, unspecified; E11.9 Type 2 diabetes mellitus without complications; E03.9 Hypothyroidism, unspecified; G47.33 Obstructive sleep apnea (adult) (pediatric); Z85.3 Personal history of malignant neoplasm of breast; E78.00 Pure hypercholesterolemia, unspecified; Z95.2 Presence of prosthetic heart valve
CPT/HCPCS: 92523-GN; 97116-GP; 97162-GP; 97166-GO; 97535-GO; G0378; G8978-GP-CK; G8979-GP-CJ; G8987-GO-CK; G8988-GO-CJ; G9165-GN-CK; G9166-GN-CJ; J1335; J1815

== ENCOUNTER 2016-11-06 15:48 | Inpatient (IN) | payer OTHER ==
[2016-11-06] MEDS: CARBIDOPA/LEVO CR 25 MG/100 MG TAB PO SCH (18:24)
[2016-11-06] MEDS: metFORMIN HCL 850 MG TAB PO SCH (18:25)
--- NOTE | 2016-11-06 19:05 | PDOREHIP ---
Admission [facility] - Admission - 3 Day Assessment Period Admission Date/Day 1: 11/06/16 Day 2: 11/07/16 Day 3: 11/08/16 - Active Diagnoses Comorbidities and Co-existing Conditions at Admission: 38371. DM (e.g. diabetic retinopathy, nephropathy, and neuropathy), 66700. None of the Above - Skin Conditions Unhealed Pressure Ulcer (1 or more/Stage 1 or >)-Admission: 1. Yes # Unstageable Pressure Ulcers ([place]/Eschar)-Admission: 1 ([place])
--- NOTE | 2016-11-06 19:25 | GHP ---
[f rep st] HISTORY AND PHYSICAL POST ADMISSION PHYSICIAN EVALUATION AND REHABILITATION TREATMENT PLAN DATE OF ADMISSION: 11/06/2016 DATE OF EVALUATION: 11/06/2016 TIME OF EVALUATION: 1745. REFERRING FACILITY: [facility] REFERRING PHYSICIAN: Jennifer Hill NP CONSULTING PHYSICIANS: She was seen in consultation by: 1. Wound care nurse, Michela Morrison. 2. Surgeon, Dr. Pablo. 3. Infectious Disease, Dr. Dalton. REHABILITATION DIAGNOSIS: Intraparenchymal hemorrhage, status post fall. Impairment group is 2.22. ETIOLOGIC DIAGNOSIS: Traumatic closed injury. DATE OF ONSET: 10/21/2016. HISTORY OF PRESENT ILLNESS: The patient was initially admitted to [facility] on 10/13/2016, following a fall at home, in which she suffered a subarachnoid hemorrhage, which was noted to be diffuse. She was hospitalized until 10/28/2016, at which point, she was discharged to [facility] for rehabilitation. She had a recent drainage procedure of a breast seroma, which had been expanding and was likely a sequela of a prior mastectomy. It was thought to possibly be infected, and she had been treated with clindamycin. At [facility], physical therapy noted weakness of the left arm which had not been there previously. So she was returned to [facility] for evaluation and treatment regarding a possible stroke. At [facility], she was evaluated with a head CT on 11/04/2016, which showed almost complete resolution of the previous multiple bilateral subarachnoid and intervertebral hemorrhages. She had residual subarachnoid hemorrhage in the left parieto-occipital lobe. Otherwise, she was noted to have a cerebrovascular atherosclerosis, moderate diffuse atrophy, and moderate microvascular ischemic gliosis, and a right maxillary sinusitis. MRI and MRA done on November 05 to rule out possible CVA, showed no evidence of acute ischemia, and MR angiogram was normal was read as normal. Infectious Disease consultation was requested due to concerns regarding infection of the seroma, which had been drained. She had also had a positive urinalysis, and eventually, microbiology grew Klebsiella. She has multiple antibiotic allergies, and had been treated with ertapenem, and the infectious disease organizational development consultant did not consider antibiotics to be indicated for the seroma, as it had been drained, even though there was purulence. She was treated with ertapenem for 3 days for urinary tract infection. She was evaluated by physical and occupational therapy and speech therapy, and considered stable for transfer to inpatient rehabilitation for continued care. Other studies and labs in the hospital included a CBC, which showed anemia, which was most likely fairly stable. Her hemoglobin on the day before discharge was 8.7, and hematocrit was 25.9. This had declined from the prior day at 10.1 and 29.2. Her serum chemistry revealed normal renal function and electrolytes, though on 11/05/2016, it was somewhat consistent with dehydration with a BUN of 28 and a creatinine of 0.9. Hemoglobin A1c was 6.1. Liver function tests were overall within normal limits, but for a low albumin at 2.5, and as part of the workup for possible TIA or CVA, the lipid panel was drawn. Her LDL was 32, and her total cholesterol was 88. PRECAUTIONS: Fall precaution. ACTIVE COMORBIDITIES: She has no tier 1, tier 2, or tier 3 comorbidities. PAST MEDICAL HISTORY: 1. Parkinson disease. 2. Fall with subarachnoid hemorrhage. 3. Breast cancer, status post bilateral mastectomy. 4. Recent excision of right chest wall seroma. 5. Aortic stenosis, status post TAVR. 6. Hypertension. 7. Dyslipidemia. 8. Coronary artery disease. ADDITIONAL SURGICAL HISTORY: 1. Cholecystectomy. 2. Partial colectomy for recurrent colon polyp. 3. Hernia repair. 4. Appendectomy. 5. Tonsillectomy. 6. Tubal ligation. PRE-HOSPITAL MEDICATIONS: When she was discharged to [facility], her medications were as follows: 1. Albuterol nebulizer daily p.r.n. 2. Carbidopa/levodopa 25/100 mg 3 tabs p.o. at 0700 and 2 tabs p.o. at 1200, 1800, and 2300. 3. Cholecalciferol 1000 units p.o. twice daily. 4. Clopidogrel 75 mg p.o. daily. 5. Docusate 300 mg p.o. daily. 6. Doxazosin 1 mg p.o. at bedtime. 7. Furosemide 60 mg p.o. daily. 8. Levothyroxine 100 mcg p.o. daily. 9. Losartan 50 mg p.o. daily. 10. Multivitamin daily. 11. Simvastatin 20 mg p.o. at bedtime. 12. Amlodipine 10 mg p.o. at bedtime. 13. Metformin 850 mg p.o. twice daily. ADMIT MEDICATIONS: 1. Carbidopa/levodopa 25/100, 2 tabs p.o. daily at 0700 and 2 tabs p.o. three times daily at 1200, 1800 and 2300. 2. Cholecalciferol 1000 units p.o. twice daily. 3. Clopidogrel 75 mg p.o. daily. 4. Docusate 300 mg p.o. daily. 5. Doxazosin 1 mg p.o. daily. 6. Furosemide 60 mg p.o. daily. 7. Levothyroxine 100 mcg p.o. daily. 8. Losartan 50 mg p.o. daily. 9. Multivitamin 1 p.o. daily. 10. Simvastatin 20 mg p.o. at bedtime. 11. Amlodipine 10 mg p.o. at bedtime. 12. Metformin 850 mg p.o. twice daily. 13. Acetaminophen 650 mg p.o. q.6 hours p.r.n. 14. Clindamycin 300 mg p.o. four times daily at 0800, 1200, 1600 and 2000. 15. Acetaminophen 650 mg p.o. q.4 hours p.r.n. 16. Insulin lispro per sliding scale three times daily with meals. ALLERGIES: There are numerous allergies listed. Medication allergies are as follows: Vancomycin, diphenhydramine, aspirin, bacitracin, cefaclor, chlorpheniramine, erythropoietin derick, erythromycin, gramicidin D, iodine, levofloxacin, mepivacaine, metformin though she is taking it without any adverse effects, naproxen, neomycin sulfate, omeprazole, penicillins, Phenylpropanolamine, polymyxin B, povidone iodine, prazosin, procaine, pseudoephedrine, sulfamethoxazole, trimethoprim and hyperthyroid medications. FAMILY HISTORY: Noncontributory. PSYCHOSOCIAL HISTORY: She is . She lives with her , her 2 sons and some grandchildren. She is a nonsmoker and does not use alcohol. 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 She has a total of 4 living children, and 1 child who as an infant. REVIEW OF SYSTEMS: MUSCULOSKELETAL: She reports pain over coccyx. She denies joint swelling or joint pain. Otherwise, she is pain free. RESPIRATORY: She denies cough or dyspnea. HEENT: She denies difficulty swallowing. GASTROINTESTINAL: She denies nausea vomiting, constipation, or diarrhea. GENITOURINARY: She denies dysuria. She denies dysuria or urinary frequency. NEUROLOGIC: She denies vision changes, headache, weakness, numbness or tingling of the extremities. CONSTITUTIONAL: Her family reports approximately a 20-pound weight loss since the onset of her current medical complications. Otherwise, a 10 pound point review of systems is negative. PHYSICAL EXAM: VITAL SIGNS: Blood pressure is 146/69, heart rate is 57, respiratory rate is 16, oxygen saturation is 97% on room air. Temperature is 36.6 degrees centigrade. Her weight is 48.7 kg for a body mass index of 19. GENERAL: This is a thin, almost cachectic, elderly woman. She has considerable loose skin consistent with recent weight loss. Cooperative and in no acute distress. HEENT: Extraocular movements are intact. Pupils are equal , round, and reactive to light and accommodation. Mucous membranes are moist. Dentition is in good condition. NECK: Supple. HEART: There is a regular rate and rhythm with a 2/6 systolic murmur best heard at the left sternal border. LUNGS: Clear to auscultation bilaterally. ABDOMEN: Soft, nontender, nondistended, with normoactive bowel sounds and no hepatosplenomegaly. EXTREMITIES: There is no cyanosis, clubbing, or edema. Radial pulses are 2+ bilaterally. Pedal pulses are trace bilaterally. NEUROLOGIC: She is alert and oriented to the month and the year, and her general situation. She is disoriented to the date. Cranial nerves 2-12 are grossly intact. Motor exam reveals normal strength of the hand vertical borer in upper extremities. Lower extremity motor testing was inconsistent due to communication difficulties. She is quite hard of hearing and communication is accomplished through a pocket talker. There is no rigidity or tremor. There are no dyskinesias. Sensation is intact to light touch. Deep tendon reflexes are hypoactive at the patella and Achilles tendons, and 2+ bilaterally at the biceps tendon. SKIN: There is approximately a 2 x 2.5 Cm decubitus ulcer over the coccyx. The base is fully obscured with white slough. There is no surrounding erythema or purulence. CURRENT LEVEL OF FUNCTION: Per the pre-admission screen, regarding diet, feeding or swallowing and swallowing, she was on a regular diet. She needed setup, and she needed assistance to open packages. Regarding grooming, she was able to accomplish this with standby assist for bathing and dressing. She required assistance for toileting. Regarding bladder, she was noted to be incontinent. Regarding bowel, she was continent but required assistance for transfers. Regarding bed mobility, she required minimal assistance. Transfers were accomplished with contact guard and voice cuing for technique and safety, posture and to widen base of support. She was using a front-wheeled walker. Sitting balance was independent. Standing balance required contact guard to minimal assist. Endurance was noted to be fair. Regarding gait, she was able to walk 40 feet with contact guard. She had a narrow base of support and was noted to have almost a scissoring gait pattern. Regarding cognition she was noted to have [id number] impairment in written expression, reading, comprehension, and attention. She was noted to be impulsive, which impacted function and safety. IMPRESSION: The patient is an 81-year-old woman, who has had a somewhat complicated recent medical course, including incision and drainage of an infected seroma on her chest, a fall with subarachnoid hemorrhage, discharged to a group home facility for rehabilitation and subsequent readmission to [facility] out of concern for possible stroke or transient ischemic attack. Stroke or transient ischemic attack were ruled out with brain imaging. At the end, there was no etiology of stroke found, including studies with EKG, echocardiogram, and magnetic resonance angiography. She has had weight loss and is frail. She is otherwise stable and ready for inpatient rehabilitation where she will benefit from intensive physical and occupational therapy to optimize her mobility and activities of daily living and speech and language pathology regarding cognition, communication, and possible attention to swallowing. She will benefit from nursing care regarding fall risk, infection risk, bowel and bladder, and decubitus ulcer over her coccyx, and healing of the chest wound from the drainage of the seroma. She will benefit from medical care from a physician regarding Parkinson disease, neurologic status, infection, diabetes mellitus and blood pressure management. GOAL: Her goal is to return home with her family and supportive services for a safe discharge. It is expected that she will achieve independence with eating, grooming, and bed mobility, and modified independence for transfers. She may require supervision for dressing and ambulation with the least restrictive device, as well as assistance for bathing. She will need assistance for meal preparation, shopping and household management. She will have therapy with physical therapy, occupational therapy, and speech and language pathology for 60 minutes per day for each discipline on 5-7 days per week. Her expected duration of stay is 10-14 days. It is expected that upon discharge, she will continue to benefit from home health services including speech and language pathology, occupational therapy, and physical therapy. ASSESSMENT AND PLAN: 1. Status post fall and subarachnoid hemorrhage: The hemorrhage has largely cleared, but she has debility and will benefit from physical and occupational therapy to optimize her mobility and activities of daily living. 2. Cognitive impairment: To be assessed and treated by Speech and Language Pathology. 3. Weight loss and frailty: She will be evaluated by the dietitian, and her nutrition will be optimized. 4. Parkinson disease: Continue carbidopa/levodopa as currently prescribed, and observe for continuing evidence of poorly controlled disease or for dyskinesias that might result from her high dosing of carbidopa/levodopa. 5. Hypertension: Continue amlodipine and losartan, and monitor for adequate blood pressure control. 6. Dyslipidemia: Continue atorvastatin. 7. Coronary artery disease: Continue clopidogrel. 8. History of transcatheter aortic valve replacement: She does not appear to be in heart failure. However, she is being treated with furosemide 60 mg daily. Continue to evaluate renal function for dehydration as well as signs and symptoms of fluid overload or over-medication. 9. Hypothyroidism: Continue levothyroxine. 10. Diabetes mellitus: She was to continue metformin. She was receiving occasional insulin in the hospital; however, her hemoglobin A1c was 6.1, which is far more than adequate control, given her age and comorbidities and expected life expectancy. I will not continue the insulin or blood pressure checks. 11. Dementia: Pending further evaluation and management per Speech and Language Pathology. 12. Urinary tract infection: Was treated with 3 days of ertapenem, to which the Klebsiella was susceptible. She will be observed for any signs or symptoms of recurrent urinary tract infection. 13. Anemia with a recent decline in her hemoglobin and hematocrit to her baseline: Will repeat a CBC on 11/10/2016. 14. Deep venous thrombosis prophylaxis: Anticoagulation is contraindicated with a recent subarachnoid hemorrhage. She will have SCDs and CAITLNI pege. /[id number]/MODL MTDD
[2016-11-06] MEDS: CHOLECALCIFEROL VIT D3 1,000 UNITS TAB PO SCH (21:49)
[2016-11-06] MEDS: ATORVASTATIN CALCIUM 10 MG TAB PO SCH (21:49)
[2016-11-07] MEDS: CARBIDOPA/LEVO CR 25 MG/100 MG TAB PO SCH ×4 (00:10→17:20)
[2016-11-07] MEDS: LEVOTHYROXINE 100 MCG TAB PO SCH (06:27)
[2016-11-07] MEDS: ACETAMINOPHEN 325 MG TAB PO PRN ×2 (07:01→19:29)
[2016-11-07] MEDS: metFORMIN HCL 850 MG TAB PO SCH ×2 (08:38→17:24)
[2016-11-07] MEDS: CLOPIDOGREL BISULFATE 75 MG TAB PO SCH (08:38)
[2016-11-07] MEDS: CHOLECALCIFEROL VIT D3 1,000 UNITS TAB PO SCH ×2 (08:39→19:29)
[2016-11-07] MEDS: MULTIVITAMINS 1 EACH TAB PO SCH (08:39)
[2016-11-07] MEDS: FUROSEMIDE 40 MG TAB PO SCH (08:41)
[2016-11-07] MEDS: DOXAZOSIN MESYLATE 1 MG TAB PO SCH (08:42)
[2016-11-07] MEDS: LOSARTAN POTASSIUM 50 MG TAB PO SCH (08:42)
--- NOTE | 2016-11-07 12:44 | SOAPPROG ---
SOAP Progress Note Assessment/Plan: Assessment: 81 yo female s/p fall, SAH * SAH: stable, cont to monitor. Initiate multi-disp eval and treat * Debility: acute on chronic. Begin multi-disp eval and treat * Dementia: W/U under way * Cachexia: Nutrition consult and monitoring * Parkinsons Dz: Cont current meds * DM2: Good A1c control, cont metformin. * Htn: Systolic elevated. Cont current meds, monitor * Dyslipidemia: cont meds * CAD/?CHF/AVR: stable, cont current meds. anti-coag contraindicated 2/2 ICH * HypoThyroid: cont current meds * UTI: S/P Abx for Klebsiella, monitor for Sx/Sx * Anemia: stable, cont to monitor * DVT PPx: anti-coag contraindicated 2/2 ICH. Will use teds, SCD's and progress ambulation. Plan: Staffing pending 11/07/16 12:45 Subjective: In no distress resting/eating comfortably Pleasantly confused No F/C/CP/SOB/N/V/D/C Objective: Vital Signs Temp Pulse Resp BP Pulse Ox 36.7 C 63 15 103/68 93 11/07/16 07:06 11/07/16 07:06 11/07/16 07:06 11/07/16 08:42 11/07/16 07:06 11/06/16 11/07/16 11/08/16 05:59 05:59 05:59 Intake Total 650 570 Balance 650 570 Physical Exam - Physical Exam General Appearance: alert, no apparent distress, cachetic Neck: supple Respiratory: lungs clear Cardiac/Chest: regular rate, rhythm Skin: normal color, warm/dry Extremities: No pedal edema, No calf tenderness Neuro/Psych: motor weakness (global), cognition abnormalities, other (no acute changes) ICD10 Worksheet Patient Problems: Problems Problem Status Diagnosed Decubitus ulcer of ankle, stage 2 Acute TIA (transient ischemic attack) Acute Aortic sclerosis Acute Aortic stenosis Acute Breast CA Acute Fall Acute Intracranial hemorrhage Acute Parkinsons disease Acute
[2016-11-07] MEDS: COLLAGENASE 30 GM OINTMENT TP SCH (16:02)
[2016-11-07] MEDS: ATORVASTATIN CALCIUM 10 MG TAB PO SCH (19:29)
[2016-11-08] MEDS: CARBIDOPA/LEVO CR 25 MG/100 MG TAB PO SCH ×5 (00:03→23:12)
[2016-11-08] MEDS: LEVOTHYROXINE 100 MCG TAB PO SCH (05:51)
[2016-11-08] MEDS: metFORMIN HCL 850 MG TAB PO SCH ×2 (08:19→17:30)
[2016-11-08] MEDS: LOSARTAN POTASSIUM 50 MG TAB PO SCH (08:20)
[2016-11-08] MEDS: FUROSEMIDE 40 MG TAB PO SCH (08:21)
[2016-11-08] MEDS: CLOPIDOGREL BISULFATE 75 MG TAB PO SCH (08:21)
[2016-11-08] MEDS: DOXAZOSIN MESYLATE 1 MG TAB PO SCH (08:22)
[2016-11-08] MEDS: CHOLECALCIFEROL VIT D3 1,000 UNITS TAB PO SCH ×2 (08:25→21:08)
[2016-11-08] MEDS: MULTIVITAMINS 1 EACH TAB PO SCH (08:25)
[2016-11-08] MEDS: COLLAGENASE 30 GM OINTMENT TP SCH (10:35)
--- NOTE | 2016-11-08 16:52 | SOAPPROG ---
SOAP Progress Note Assessment/Plan: Assessment: 81 yo female s/p fall, SAH * SAH: stable, cont to monitor. Initiate multi-disp eval and treat * Debility: acute on chronic. Begin multi-disp eval and treat * Dementia: W/U under way * Cachexia: Nutrition consult and monitoring * Parkinsons Dz: Cont current meds * DM2: Good A1c control, cont metformin. * Htn: Systolic elevated. Cont current meds, monitor * Dyslipidemia: cont meds * CAD/?CHF/AVR: stable, cont current meds. anti-coag contraindicated 2/2 ICH * HypoThyroid: cont current meds * UTI: S/P Abx for Klebsiella, monitor for Sx/Sx * Anemia: stable, cont to monitor * DVT PPx: anti-coag contraindicated 2/2 ICH. Will use teds, SCD's and progress ambulation. Plan: Staffing pending 11/08/16 16:50 Subjective: pleasantly confused. Sundowns No reported problems or C/O's No F/C/CP/SOB/N/V/D/C Objective: Vital Signs Temp Pulse Resp BP Pulse Ox 36.6 C 70 17 106/48 L 95 11/08/16 08:00 11/08/16 08:00 11/08/16 08:00 11/08/16 08:00 11/08/16 08:00 11/07/16 11/08/16 11/09/16 05:59 05:59 05:59 Intake Total 650 1970 Output Total 100 200 Balance 650 1870 -200 Physical Exam - Physical Exam General Appearance: alert, no apparent distress EENT: other (resolving ecchymosis left side of face and neck) Neck: supple Respiratory: lungs clear Cardiac/Chest: regular rate, rhythm Skin: normal color, warm/dry Extremities: No pedal edema, No calf tenderness Neuro/Psych: alert, motor weakness, sensory deficit, cognition abnormalities, No oriented x 3 ICD10 Worksheet Patient Problems: Problems Problem Status Diagnosed Decubitus ulcer of ankle, stage 2 Acute TIA (transient ischemic attack) Acute Aortic sclerosis Acute Aortic stenosis Acute Breast CA Acute Fall Acute Intracranial hemorrhage Acute Parkinsons disease Acute
[2016-11-08] MEDS: ATORVASTATIN CALCIUM 10 MG TAB PO SCH (21:08)
[2016-11-09] MEDS: LEVOTHYROXINE 100 MCG TAB PO SCH (05:34)
[2016-11-09] MEDS: CARBIDOPA/LEVO CR 25 MG/100 MG TAB PO SCH ×4 (07:47→22:34)
[2016-11-09] MEDS: MULTIVITAMINS 1 EACH TAB PO SCH (09:06)
[2016-11-09] MEDS: CHOLECALCIFEROL VIT D3 1,000 UNITS TAB PO SCH ×2 (09:06→20:04)
[2016-11-09] MEDS: FUROSEMIDE 40 MG TAB PO SCH (09:06)
[2016-11-09] MEDS: metFORMIN HCL 850 MG TAB PO SCH ×2 (09:06→18:16)
[2016-11-09] MEDS: CLOPIDOGREL BISULFATE 75 MG TAB PO SCH (09:06)
[2016-11-09] MEDS: DOXAZOSIN MESYLATE 1 MG TAB PO SCH (09:08)
--- NOTE | 2016-11-09 12:30 | SOAPPROG ---
SOAP Progress Note Assessment/Plan: Assessment: 81 yo female s/p fall, SAH, complicated by hx of PD, cognitive impairment, and recent weight loss. * SAH and impairments in mobility, self care, cognition: stable, cont to monitor. Initial team meeting today (see separate documentation) highlighted the significant cognitive impairments and noted that she was requiring significant cueing for safety and basic ADLs. Planning to investigate discharge plan further to understand the son's capacity to care for patient at home. Team is hoping and anticipating that the cognitive status will improve in the coming weeks, otherwise the dc plan may need to be modified. Continue PT for mobility, OT for self care, and STUDENT AFFAIRS VICE PRESIDENT for cognition and communication. * Dementia: W/U under way * Cachexia: Nutrition consult and monitoring * Parkinsons Dz: Cont current meds, no changes * DM2: Good A1c control, cont metformin. * Htn/ hypotension: she demonstrates some lability on review of her vital signs. She notes some mild symptoms of orthostatic hypotension at times, but hard to get a comparison to baseline. She was on furosemide 60 mg daily at home , and on review of available notes appears to have been on this dose since at least 2012. Checking orthostatic BP and pulse with nursing for further assessment of fluid status. No clear fluid overload. Losartan was held on AM of 11/09/2016 because of hypotension, re-evaluate over next 24 hr. If she demonstrated orthostatic hypotension, plan to decrease furosemide and continue other medications as prescribed, holding if additional hypotension. Monitor. Note: BUN/Cr ratio not helpful for fluid status as she is on diuretics. * Dyslipidemia: cont meds * CAD/?CHF/AVR: stable, cont current meds. anti-coag contraindicated 2/2 ICH * HypoThyroid: cont current meds * UTI: S/P Abx for Klebsiella, monitor for Sx/Sx * Anemia: stable, cont to monitor * DVT PPx: anti-coag contraindicated 2/2 ICH. Will use teds, SCD's and progress ambulation. * FEN: reported to have poor PO overall, monitor closely and calorie count. * Wound care: clarified wound care orders this morning. Continue care of chest wound s/p drainage, and limited sitting for coccygeal wound. 11/09/16 12:20 Subjective: No acute events overnight. She reports only 2/10 pain on her coccyx, otherwise no issues. She denies problems sleeping, other pain, difficulty breathing, or new neurological changes such as weakness or sensory changes. Therapists report that she has extremely variable ability to participate in therapies, and they are watching to see how things may improve or changes on her PD meds (given after AM therapy sessions). Family nearby, son is the primary caregiver, also cares for father. Unclear if she has any symptoms of orthostatic hypotension, or timeline. Losartan held this morning for hypotension. Objective: Vital Signs Temp Pulse Resp BP Pulse Ox 36.8 C 88 18 98/52 L 95 11/09/16 08:00 11/09/16 08:00 11/09/16 08:00 11/09/16 08:00 11/09/16 08:00 11/08/16 11/09/16 11/10/16 05:59 05:59 05:59 Intake Total 1970 50 Output Total 100 500 Balance 1870 -450 - Time Spent With Patient Time Spent With Patient: 10 min - Pending Discharge Pending Discharge Within 24 Hours: No Pending Discharge Within 48 Hours: No Physical Exam - Physical Exam General Appearance: alert, no apparent distress, other (sitting and feeding self at table in dining room) EENT: No scleral icterus (R), No scleral icterus (L), No photophobia Respiratory: lungs clear, normal breath sounds, No respiratory distress, No accessory muscle use, No rales, No rhonchi, No wheezing Cardiac/Chest: normal peripheral pulses, regular rate, rhythm, No edema, No bradycardia, No tachycardia Abdomen: normal bowel sounds, non-tender, soft Skin: normal color, warm/dry Extremities: No pedal edema, No swelling Neuro/Psych: alert, normal mood/affect, cognition abnormalities (slowed speech, [place] however.), No sensory deficit ICD10 Worksheet Patient Problems: Problems Problem Status Diagnosed Decubitus ulcer of ankle, stage 2 Acute Impaired mobility and activities of daily living Acute TIA (transient ischemic attack) Acute Aortic sclerosis Acute Aortic stenosis Acute Breast CA Acute Fall Acute Intracranial hemorrhage Acute Parkinsons disease Acute - ICD10 Problem Qualifiers (1) Impaired mobility and activities of daily living
[2016-11-09] MEDS ORDERED: BISACODYL 10 MG SUPP PR PRN (13:43)
[2016-11-09] MEDS: COLLAGENASE 30 GM OINTMENT TP SCH (14:04)
[2016-11-09] MEDS: LOSARTAN POTASSIUM 50 MG TAB PO SCH (14:21)
[2016-11-09] MEDS: SENNOSIDES 1 TAB PO SCH ×2 (15:12→19:23)
[2016-11-09] MEDS: ATORVASTATIN CALCIUM 10 MG TAB PO SCH (20:04)
[2016-11-10] MEDS: LEVOTHYROXINE 100 MCG TAB PO SCH (05:59)
[2016-11-10] MEDS: CARBIDOPA/LEVO CR 25 MG/100 MG TAB PO SCH ×4 (07:47→22:33)
[2016-11-10 08:35] LABS: % IMMATURE GRANULYOCYTES 0.8 % (0.0-1.1); ABSOLUTE IMMATURE GRANULOCYTES 0.06 10^3/uL (0.00-0.10); ADD DIFF? NO; ADD MORPH? NO; ADD SCAN? NO; ATYPICAL LYMPHOCYTE FLAG 0 (0-99); FRAGMENT RBC FLAG 0 (0-99); HEMATOCRIT 26.7 % (38.0-47.0); HEMOGLOBIN 8.9 g/dL (12.6-16.3); LEFT SHIFT FLG 0 (0-99); LIPEMIA HEMOLYSIS FLAG 80 (0-99); MEAN CELL HEMOGLOBIN 32.8 pg (27.9-34.1); MEAN CELL HEMOGLOBIN CONCENTR. 33.3 g/dL (32.4-36.7); MEAN CELL VOLUME 98.5 fL (81.5-99.8); MEAN PLATELET VOLUME 9.4 fL (8.7-11.7); PLATELET CLUMPS FLAG 10 (0-99); PLATELET COUNT 204 10^3/uL (150-400); RED BLOOD CELL COUNT 2.71 10^6/uL (4.18-5.33)
[2016-11-10] MEDS: ACETAMINOPHEN 325 MG TAB PO PRN (08:49)
[2016-11-10] MEDS: metFORMIN HCL 850 MG TAB PO SCH ×2 (08:49→18:05)
[2016-11-10] MEDS: CHOLECALCIFEROL VIT D3 1,000 UNITS TAB PO SCH ×2 (08:49→21:26)
[2016-11-10] MEDS: FUROSEMIDE 40 MG TAB PO SCH (08:50)
[2016-11-10] MEDS: CLOPIDOGREL BISULFATE 75 MG TAB PO SCH (08:50)
[2016-11-10] MEDS: SENNOSIDES 1 TAB PO SCH ×2 (08:51→21:26)
[2016-11-10] MEDS: MULTIVITAMINS 1 EACH TAB PO SCH (08:51)
[2016-11-10] MEDS: LOSARTAN POTASSIUM 50 MG TAB PO SCH (08:51)
[2016-11-10] MEDS: DOXAZOSIN MESYLATE 1 MG TAB PO SCH (09:00)
[2016-11-10 09:09] LABS: ANION GAP 6 mEq/L (8-16); CALCIUM 8.9 mg/dL (8.5-10.4); CARBON DIOXIDE 30 mEq/l (22-31); CHLORIDE 98 mEq/L (97-110); CREATININE 1.1 mg/dL (0.6-1.0); GLOMERULAR FILTRATION RATE 48; GLUCOSE 117 mg/dL (70-100); POTASSIUM 4.7 mEq/L (3.5-5.2); SODIUM 134 mEq/L (134-144)
[2016-11-10] MEDS: COLLAGENASE 30 GM OINTMENT TP SCH ×2 (10:44→16:00)
--- NOTE | 2016-11-10 13:18 | SOAPPROG ---
SOAP Progress Note Assessment/Plan: Assessment: 81 yo female s/p fall, SAH, complicated by hx of PD, cognitive impairment, and recent weight loss. * SAH and impairments in mobility, self care, cognition: Initial FIM 55 on 11/09. Significant cognitive impairments requiring significant cueing for safety and basic ADLs. Planning to investigate discharge plan further to understand the son's capacity to care for patient at home. If cognitive status does not improve the dc plan may need to be modified. Continue PT for mobility, OT for self care, and FIRER LOCOMOTIVE for cognition and communication. * Dementia: W/U under way * Cachexia: Nutrition consult and monitoring. Daily weight. * Parkinsons Dz: Cont current meds, no changes * DM2: Good A1c control, cont metformin. * Htn/ hypotension: Reduced PO intake documented, and seems dehydrated on BMP. Hold amlodipine this evening and then resume at 5 mg QHS rather than 10 mg tomorrow 11/11/16. Reduce furosemide tfrom 60 mg QD (consistent dose since 2012 ) to 20 mg QD with close attention to fluid accumulation. Encourage PO hydration. Continue to monitor. * Dyslipidemia: continue atorvastatin. * CAD/?CHF? S/P TAVR: stable, cont current meds. anti-coag contraindicated 2/ 2 ICH * HypoThyroid: cont current meds * UTI: S/P Abx for Klebsiella, monitor for Sx/Sx * Anemia: stable, cont to monitor * DVT PPx: anti-coag contraindicated 2/2 ICH. Will use teds, SCD's and progress ambulation. * FEN: reported to have poor PO overall, monitor closely and calorie count, daily weight. * Wound care: clarified wound care orders this morning. Continue care of chest wound s/p drainage, and limited sitting for coccygeal wound. 11/10/16 13:30 Subjective: No complaints. Has pain over coccyx. She's on a reduced sitting schedule 3x/ day 1 hr each. Denies thirst, dyspnea, cough, f/c. Objective: Vital Signs Temp Pulse Resp BP Pulse Ox 36.6 C 62 16 106/52 L 96 11/10/16 08:41 11/10/16 08:41 11/10/16 08:41 11/10/16 08:51 11/10/16 08:41 Laboratory Results 11/10/16 06:22 11/10/16 06:22 11/09/16 11/10/16 11/11/16 05:59 05:59 05:59 Intake Total 50 240 720 Output Total 500 400 200 Balance -450 -160 520 Physical Exam - Physical Exam General Appearance: alert, no apparent distress, cachetic Respiratory: normal breath sounds, No crackles, No rhonchi, No wheezing Cardiac/Chest: regular rate, rhythm, No edema Skin: normal color, warm/dry Neuro/Psych: alert, normal mood/affect ICD10 Worksheet Patient Problems: Problems Problem Status Diagnosed Decubitus ulcer of ankle, stage 2 Acute Impaired mobility and activities of daily living Acute TIA (transient ischemic attack) Acute Aortic sclerosis Acute Aortic stenosis Acute Breast CA Acute Fall Acute Intracranial hemorrhage Acute Parkinsons disease Acute
--- NOTE | 2016-11-10 16:31 | WOCRNPDOC ---
THA Advanced Assessment Note - Skin Integrity Problem, Advanced Assess Coccyx Dressing Type: Tegaderm Film, Telfa Dressing Description: Clean/Dry, Intact Exudate Amount: None Exudate Characteristic(s): None Integumentary Issue Intervention: Dressing Changed Angella Wound Tissue: Raw (immediately angella-wound) Wound Bed Color: Red, Yellow Wound Bed Constitution: Smooth Tissue (2%), Adhered Slough (98%) Wound Edges: Well Defined Site Odor: None Pressure Injury Stage: Unstageable Pressure Injury Present on Admit: Yes Skin Integrity Problem Comment: Wound remains slough-filled, w/ some scattered smooth tissue starting to show through. Immediately angella-wound, tissue is raw w / mild erythema. I suspect this is r/t Santyl. Continue tx, w/ possible superficial sharp debridement later this week to facilitate penetration of Santyl. Spoke w/ OT about existing wound care order for no >3 hrs/day sitting in chair. It was conveyed to me that Speech Therapy needs more time with patient sitting in chair. I changed the order to 4 hours/day, with the provision that patient is on a pressure-relieving waffle cushion and repositioned q 15 minutes. payable representative Madeline present and assisting. Right Chest Dressing Type: ABD Pad, Plain Packing Dressing Description: Intact Exudate Amount: Moderate Exudate Color: Yellow Exudate Characteristic(s): Cloudy, Thick Integumentary Issue Intervention: Dressing Changed Angella Wound Tissue: Intact, Scarred Angella Wound Swelling: None Wound Bed Color: [place], Red Wound Bed Constitution: Smooth Tissue, Undermining (see measurements) Wound Edges: Well Defined Site Odor: None Site Measurement - Head-to-Toe Length X Width X Depth (cm): 1.7cmx1.1cmx0.4cm ( wound undermines 7cm from 11-9 o'clock; 3cm from 6-9 o'clock; and 2.5cm from 4- 6 o'clock) Skin Integrity Problem Comment: Surgical wound w/ copious packing noted. Upon removal, packing was noted to have thick, cloudy exudate, w/ no odor. Does not resemble purulence, and there is no associated erythema, warmth, or swelling. Through small opening, I was able to visualize smooth tissue w/ no necrosis. There is significant undermining, however, and I was unable to visualize wound bed in those aspects of the wound. Site re-packed w/ Algidex Ag 1/4 inch packing , and covered w/ an ABD. Patient tolerated w/ no c/o pain. She is scheduled to follow up w/ Dr. Radford next week. In the interim, site can be packed 1x/day instead of BID. payable representative Madeline present and assisting.
--- NOTE | 2016-11-10 20:23 | CT ---
Noncontrast Head CT Indication: Follow-up intracranial hemorrhage. Technique: Standard noncontrast axial CT images of the head were performed. Dose reduction techniq ues were utilized. Comparison examination: November 04, 2016. Findings: Minimal residual subarachnoid hemorrhage is again noted in the left occipital region, unc hanged. No new areas of intracranial hemorrhage identified. Moderate white matter microvascular ische maria luisa gliosis is stable. Ventricles are unchanged in appearance. Hyperostosis frontalis interna again noted, without change. Mucoperiosteal thickening of the right ma xillary sinus is again demonstrated, with partial calcification. Impression: Stable noncontrast CT of the brain. Minimal residual subarachnoid hemorrhage in the lef t occipital region is stable. No new areas of hemorrhage identified.
[2016-11-10] MEDS: ATORVASTATIN CALCIUM 10 MG TAB PO SCH (21:26)
[2016-11-10 22:44] LABS: HEMATOCRIT 25.9 % (38.0-47.0)
[2016-11-10 22:59] LABS: % SATURATION 26 % (20-55); TOTAL IRON BINDING CAPACITY 202 ug/dL (260-490)
[2016-11-11] MEDS: ACETAMINOPHEN 325 MG TAB PO PRN ×2 (00:58→11:43)
[2016-11-11] MEDS: LEVOTHYROXINE 100 MCG TAB PO SCH (06:26)
[2016-11-11] MEDS: CARBIDOPA/LEVO CR 25 MG/100 MG TAB PO SCH ×4 (08:22→23:44)
[2016-11-11] MEDS: metFORMIN HCL 850 MG TAB PO SCH ×2 (08:24→20:03)
[2016-11-11] MEDS: CLOPIDOGREL BISULFATE 75 MG TAB PO SCH (08:26)
[2016-11-11] MEDS: CHOLECALCIFEROL VIT D3 1,000 UNITS TAB PO SCH ×2 (08:26→20:04)
[2016-11-11] MEDS: FUROSEMIDE 40 MG TAB PO SCH (08:28)
[2016-11-11] MEDS: MULTIVITAMINS 1 EACH TAB PO SCH (08:28)
[2016-11-11] MEDS: SENNOSIDES 1 TAB PO SCH ×2 (08:29→20:03)
[2016-11-11] MEDS: LOSARTAN POTASSIUM 50 MG TAB PO SCH (08:29)
[2016-11-11] MEDS: DOXAZOSIN MESYLATE 1 MG TAB PO SCH (08:43)
--- NOTE | 2016-11-11 09:57 | SOAPPROG ---
SOAP Progress Note Assessment/Plan: Assessment: 81 yo female s/p fall, SAH, complicated by hx of PD, cognitive impairment, and recent weight loss. * SAH and impairments in mobility, self care, cognition: Initial FIM 55 on 11/09. Significant cognitive impairments requiring significant cueing for safety and basic ADLs. Planning to investigate discharge plan further to understand the son's capacity to care for patient at home. If cognitive status does not improve the dc plan may need to be modified. Continue PT for mobility, OT for self care, and TRANSMISSION TECHNICIAN for cognition and communication. * Transient neurologic symptoms 11/10/16 with AMS and difficulty speaking. Head CT w/out new bleed. Complete recovery this mornimg. Query seizure? Neurology consult pending; Dr. Guerrero is familiar with Mrs. Hamm. * Dementia: W/U under way * Cachexia: Nutrition consult and monitoring. Daily weightL: she's gaining. * Parkinsons Dz: Cont current meds, no changes * DM2: Good A1c control, cont metformin. * Htn/ hypotension: Reduced PO intake documented, and seems dehydrated on BMP. Held amlodipine 11/10/16; resume at 5 mg QHS rather than 10 mg 11/11/16. Reduce furosemide tfrom 60 mg QD (consistent dose since 2012) to 20 mg QD with close attention to fluid accumulation. Encourage PO hydration. Continue to monitor. * Dyslipidemia: continue atorvastatin. * CAD/?CHF? S/P TAVR: stable, cont current meds. * HypoThyroid: cont current meds * UTI: S/P Abx for Klebsiella, monitor for Sx/Sx * Anemia: stable, cont to monitor. Reticulocyte count and iron panel c/w anemia of chronic disease. * DVT PPx: anti-coag contraindicated 2/2 ICH. Will use teds, SCD's and progress ambulation. * FEN: reported to have poor PO overall, monitor closely and calorie count, daily weight. * Wound care: clarified wound care orders this morning. Continue care of chest wound s/p drainage, and limited sitting for coccygeal wound. 11/11/16 09:53 Subjective: Reports feeling tired. Little recall of events of last night (sent to [facility] for head CT due to AMS and difficulty speaking). Denies pain, cough, dyspnea, f/c, dysuria. Objective: Vital Signs Temp Pulse Resp BP Pulse Ox 36.7 C 64 16 147/70 H 98 11/11/16 06:44 11/11/16 06:44 11/11/16 06:44 11/11/16 08:29 11/11/16 06:44 Laboratory Results 11/10/16 06:22 11/10/16 06:22 11/10/16 11/11/16 11/12/16 05:59 05:59 05:59 Intake Total 240 1700 Output Total 400 350 Balance -160 1350 Physical Exam - Physical Exam General Appearance: alert, no apparent distress, cachetic Respiratory: normal breath sounds, No crackles, No rhonchi, No wheezing Cardiac/Chest: regular rate, rhythm, edema (trace B pretibial) Skin: normal color, warm/dry Neuro/Psych: alert, normal mood/affect, oriented x 3, No aphasia, No speech abnormalities ICD10 Worksheet Patient Problems: Problems Problem Status Diagnosed Decubitus ulcer of ankle, stage 2 Acute Impaired mobility and activities of daily living Acute TIA (transient ischemic attack) Acute Aortic sclerosis Acute Aortic stenosis Acute Breast CA Acute Fall Acute Intracranial hemorrhage Acute Parkinsons disease Acute
[2016-11-11] MEDS: COLLAGENASE 30 GM OINTMENT TP SCH (10:03)
--- NOTE | 2016-11-11 10:47 | GCON ---
[f rep st] CONSULTATION NEUROLOGIC CONSULTATION. HISTORY: Pineda is an 81-year-old woman who I have known for many years and have followed for Park inson's disease. I am specifically asked to see her on this occasion regarding an episode yesterday where she had decreased responsiveness. The patient has had a recent hospitalization with subarachno id bleeding and some intraparenchymal bleeding for which details are in that hospital record. I revi ewed all of that. The patient cannot remember much details about this, but she does know that she wa s in the hospital. She saw my colleague, Dr. Martin for a full neurologic consultation. He reviewe d the story for why she was readmitted to the facility just a week ago because of transient left arm weakness. That fully resolved, and she was then subsequently admitted to the rehab service. Yesterd ay, she was noted to have a rather difficult time being aroused and would open her eyes, but then see med to drift off. No specific seizure activity was described, but she was poorly interactive which l ed to head CT being obtained, which showed no changes in the hemorrhages. I spoke to Dr. Jarrett on t he phone before and after the head CT, and came to see her this morning for further review. The camila ent remembers going to CT, but she does not remember much else about the event. The onset was around late afternoon and early evening, and then resolved after a few hours. We really are not sure exact ly what happened but she seems to be back to her baseline now, and the nurse who admitted her agrees to that. Currently, the patient says she is not having any pain. She has no specific complaints. She is not aware of any specific alleviating or exacerbating factors. PAST MEDICAL HISTORY: Notable for longstanding Parkinson's disease, the fall, breast cancer, aortic stenosis, history of TIA, decubitus ulcer, impaired mobility. The additional past medical history of hypertension, hyperlipidemia, coronary disease. She has had v alve replacement of aortic valve. MEDICATIONS: Prior to hospitalization, albuterol, Sinemet, Plavix, cholecalciferol, Colace, doxazosi n, Lasix, levothyroxine, Losartan, simvastatin, amlodipine and metformin. When she came [facility] into [facility] currently, she is on the same basic medicines. She has a large number of allergies. Plea se see the admission history and physical for those. FAMILY HISTORY: Noncontributory. She is . No smoking or alcohol. REVIEW OF SYSTEMS: A 10-point review of systems was completed and unremarkable except for that noted above. PHYSICAL EXAM: VITAL SIGNS: Blood pressure 147/70, pulse of 64, respirations 16, temperature is 36. 7. GENERAL: She is well developed, in no acute distress. EYES: Clear. NECK: Supple with no brui ts or masses. CARDIAC: Regular rate and rhythm. No murmur. EXTREMITIES: Show no cyanosis or shon a. She is awake and alert and attentive. She recognizes me and knows my name. She is oriented to p erson, place, and time and general situation. She has decreased short term memory, but preservation of rat exterminator memory. She is able to follow my instructions. Concentration and attention were mildly reduced. General fund of knowledge is reduced. Pupils are 3 mm and reactive. Visual meraz are fu ll. Extraocular movements are intact. I cannot view the fundi adequately for comment. Facial sensa tion is preserved and no definite facial weakness. Palate elevates symmetrically. Tongue protrudes midline. Hearing is preserved. No weakness of head turning or shoulder shrug. MOTOR EXAMINATION: She has mild generalized bradykinesia. No significant tremor currently. Strength overall is in the 4/5 range in all the extremities with very minimal asymmetry. No other abnormal movements are eviden t. Sensation is preserved for temperature and light touch. She is not ataxic in the upper extremiti es. I did not have her try to walk with me this morning. Reflexes 2+. I reviewed the head CT from last evening. That shows stability compared to the study from November 04 with minimal residual subarachnoid hemorrhage in the left occipital region and no new areas of hem orrhage. LABORATORY STUDIES: She is anemic but otherwise unremarkable. Electrolytes also generally unremarka ble. IMPRESSION: The patient has experienced an episode of several hours of being below her normal baseli ne in terms of interactive skills and trouble communicating. Differential considerations include tra nsient ischemic attack and nonconvulsive type seizure. There is nothing specific enough to allow me to say the diagnosis purely based on the clinical story. At this point, I would recommend clinical o bservation rather than adding any anticonvulsants and would not change any of her other medications. She is status post recent subarachnoid bleeding and some intraparenchymal bleeding which is now stab le, confirmed by CT. Her Parkinson's disease is stable and she is fairly close to her baseline, alth ough she has had a setback because of this recent trauma. Please contact me with any additional questions, but otherwise she should be stable to continue her r ehab. /[id number]/MODL
[2016-11-11] MEDS: ATORVASTATIN CALCIUM 10 MG TAB PO SCH (20:04)
[2016-11-12] MEDS: CARBIDOPA/LEVO CR 25 MG/100 MG TAB PO SCH ×4 (06:36→22:39)
[2016-11-12] MEDS: LEVOTHYROXINE 100 MCG TAB PO SCH (06:36)
[2016-11-12] MEDS: MULTIVITAMINS 1 EACH TAB PO SCH (09:12)
[2016-11-12] MEDS: metFORMIN HCL 850 MG TAB PO SCH ×2 (09:12→17:34)
[2016-11-12] MEDS: CLOPIDOGREL BISULFATE 75 MG TAB PO SCH (09:12)
[2016-11-12] MEDS: CHOLECALCIFEROL VIT D3 1,000 UNITS TAB PO SCH ×2 (09:12→20:11)
[2016-11-12] MEDS: SENNOSIDES 1 TAB PO SCH ×2 (09:12→20:11)
[2016-11-12] MEDS: FUROSEMIDE 40 MG TAB PO SCH (10:07)
[2016-11-12] MEDS: DOXAZOSIN MESYLATE 1 MG TAB PO SCH (10:07)
[2016-11-12] MEDS: LOSARTAN POTASSIUM 50 MG TAB PO SCH (11:39)
[2016-11-12 12:05] LABS: ANION GAP 9 mEq/L (8-16); CALCIUM 9.1 mg/dL (8.5-10.4); CARBON DIOXIDE 28 mEq/l (22-31); CHLORIDE 98 mEq/L (97-110); CREATININE 1.1 mg/dL (0.6-1.0); GLOMERULAR FILTRATION RATE 48; GLUCOSE 194 mg/dL (70-100); SODIUM 135 mEq/L (134-144)
--- NOTE | 2016-11-12 12:51 | SOAPPROG ---
SOAP Progress Note Assessment/Plan: Assessment: 81 yo female s/p fall, SAH, complicated by hx of PD, cognitive impairment, and recent weight loss. * SAH and impairments in mobility, self care, cognition: Initial FIM 55 on 11/09. Significant cognitive impairments requiring significant cueing for safety and basic ADLs. Planning to investigate discharge plan further to understand the son's capacity to care for patient at home. If cognitive status does not improve the dc plan may need to be modified. Continue PT for mobility, OT for self care, and PRESS FEEDER BROOMCORN for cognition and communication. * Transient neurologic symptoms 11/10/16 with AMS and difficulty speaking. Head CT w/out new bleed. Complete recovery this morning. Query seizure? Appreciate Neurology consult by Dr. Guerrero: continue to monitor; no indication for anticonvulsants at present. * Dementia: W/U under way * Cachexia: Nutrition consult and monitoring. Daily weight. * Parkinsons Dz: Cont current meds, no changes * DM2: Good A1c control, cont metformin. * Htn/ hypotension: Reduced PO intake documented, and seems dehydrated on BMP. Held amlodipine 11/10/16; resume at 5 mg QHS rather than 10 mg 11/11/16; will d/ c 11/12/16. Reduce furosemide from 60 mg QD (consistent dose since 2012) to 20 mg QD with close attention to fluid accumulation. Encourage PO hydration. Continue to monitor. * Dyslipidemia: continue atorvastatin. * CAD/?CHF? S/P TAVR: stable, cont current meds. * HypoThyroid: cont current meds * UTI: S/P Abx for Klebsiella, monitor for Sx/Sx * Anemia: stable, cont to monitor. Reticulocyte count and iron panel c/w anemia of chronic disease. * DVT PPx: anti-coag contraindicated 2/2 ICH. Will use teds, SCD's and progress ambulation. * FEN: reported to have poor PO overall, monitor closely and calorie count, daily weight. * Wound care: clarified wound care orders this morning. Continue care of chest wound s/p drainage, and limited sitting for coccygeal wound. Appreciate assistance of wound care nurse. 11/12/16 12:45 Subjective: Low BP noted by nurse. Also orthostatic today with systolic falling from 105 to 71 between supine and standing. No complaints; does nto have symptoms of lightheadedness. Participated in therapies. Objective: Vital Signs Temp Pulse Resp BP Pulse Ox 36.8 C 70 14 89/65 L 94 11/12/16 08:00 11/12/16 10:16 11/12/16 08:00 11/12/16 11:39 11/12/16 08:00 Laboratory Results 11/10/16 06:22 11/12/16 11:00 11/11/16 11/12/16 11/13/16 05:59 05:59 05:59 Intake Total 1700 620 Output Total 350 200 Balance 1350 420 Physical Exam - Physical Exam General Appearance: alert, no apparent distress, cachetic Respiratory: normal breath sounds, No crackles, No rhonchi, No wheezing Cardiac/Chest: regular rate, rhythm, systolic murmur, extra beats (occcasional) , No edema, No JVD Abdomen: normal bowel sounds, non-tender, soft, No distended Skin: normal color, warm/dry Neuro/Psych: alert, normal mood/affect, oriented x 3 ICD10 Worksheet Patient Problems: Problems Problem Status Diagnosed Decubitus ulcer of ankle, stage 2 Acute Impaired mobility and activities of daily living Acute TIA (transient ischemic attack) Acute Aortic sclerosis Acute Aortic stenosis Acute Breast CA Acute Fall Acute Intracranial hemorrhage Acute Parkinsons disease Acute
[2016-11-12] MEDS: COLLAGENASE 30 GM OINTMENT TP SCH (14:35)
[2016-11-12] MEDS: ATORVASTATIN CALCIUM 10 MG TAB PO SCH (20:11)
[2016-11-13] MEDS: LEVOTHYROXINE 100 MCG TAB PO SCH (06:07)
[2016-11-13] MEDS: CARBIDOPA/LEVO CR 25 MG/100 MG TAB PO SCH ×4 (06:08→23:12)
[2016-11-13] MEDS: metFORMIN HCL 850 MG TAB PO SCH ×2 (08:29→17:38)
[2016-11-13] MEDS: CLOPIDOGREL BISULFATE 75 MG TAB PO SCH (08:30)
[2016-11-13] MEDS: CHOLECALCIFEROL VIT D3 1,000 UNITS TAB PO SCH ×2 (08:30→21:23)
[2016-11-13] MEDS: DOXAZOSIN MESYLATE 1 MG TAB PO SCH (08:31)
[2016-11-13] MEDS: FUROSEMIDE 40 MG TAB PO SCH (08:32)
[2016-11-13] MEDS: MULTIVITAMINS 1 EACH TAB PO SCH (08:33)
[2016-11-13] MEDS: LOSARTAN POTASSIUM 50 MG TAB PO SCH (08:33)
[2016-11-13] MEDS: SENNOSIDES 1 TAB PO SCH ×2 (08:33→21:23)
--- NOTE | 2016-11-13 13:25 | SOAPPROG ---
SOAP Progress Note Assessment/Plan: Assessment: 81 yo female s/p fall, SAH, complicated by hx of PD, cognitive impairment, and recent weight loss. * SAH and impairments in mobility, self care, cognition: Initial FIM 55 on 11/09. Significant cognitive impairments requiring significant cueing for safety and basic ADLs. Planning to investigate discharge plan further to understand the son's capacity to care for patient at home. If cognitive status does not improve the dc plan may need to be modified. Continue PT for mobility, OT for self care, and DRAFTER MARINE for cognition and communication. * Transient neurologic symptoms 11/10/16 with AMS and difficulty speaking. Head CT w/out new bleed. Complete recovery this morning. Query seizure? Appreciate Neurology consult by Dr. Guerrero: continue to monitor; no indication for anticonvulsants at present. * Dementia: W/U under way. Continue DRAFTER MARINE. * Cachexia: Nutrition consult and monitoring. Daily weight. * Parkinsons Dz: Cont current meds, no changes * DM2: Good A1c control, cont metformin. * Htn/ hypotension: Reduced PO intake documented, and seems dehydrated on BMP. Held amlodipine 11/10/16; resume at 5 mg QHS rather than 10 mg 11/11/16; will d/ c 11/12/16. Reduce furosemide from 60 mg QD (consistent dose since 2012) to 20 mg QD with close attention to fluid accumulation. Encourage PO hydration. Continue to monitor. * Dyslipidemia: continue atorvastatin. * CAD/?CHF? S/P TAVR: stable, cont current meds. * HypoThyroid: cont current meds * UTI: S/P Abx for Klebsiella, monitor for Sx/Sx * Anemia: stable, cont to monitor. Reticulocyte count and iron panel c/w anemia of chronic disease. * DVT PPx: anti-coag contraindicated 2/2 ICH. Will use teds, SCD's and progress ambulation. * FEN: reported to have poor PO overall, monitor closely and calorie count, daily weight. * Wound care: clarified wound care orders this morning. Continue care of chest wound s/p drainage, and limited sitting for coccygeal wound. Appreciate assistance of wound care nurse. 11/13/16 13:24 Subjective: No complaints. Working with OT. Objective: Vital Signs Temp Pulse Resp BP Pulse Ox 36.4 C 76 16 114/58 L 98 11/13/16 09:04 11/13/16 09:04 11/13/16 09:04 11/13/16 09:04 11/13/16 09:04 Laboratory Results 11/10/16 06:22 11/12/16 11:00 11/12/16 11/13/16 11/14/16 05:59 05:59 05:59 Intake Total 620 1240 Output Total 200 1100 200 Balance 420 140 -200 Physical Exam - Physical Exam General Appearance: WD/WN, alert, no apparent distress, cachetic Respiratory: No respiratory distress, No accessory muscle use Skin: normal color, warm/dry Neuro/Psych: alert, normal mood/affect, other (Observed ambulating in oneill ELECTRICIAN SHIP, and doing upper extremity exercises with OT.) ICD10 Worksheet Patient Problems: Problems Problem Status Diagnosed Decubitus ulcer of ankle, stage 2 Acute Impaired mobility and activities of daily living Acute TIA (transient ischemic attack) Acute Aortic sclerosis Acute Aortic stenosis Acute Breast CA Acute Fall Acute Intracranial hemorrhage Acute Parkinsons disease Acute
[2016-11-13] MEDS: COLLAGENASE 30 GM OINTMENT TP SCH (15:01)
--- NOTE | 2016-11-13 15:56 | WOCRNPDOC ---
WOCRN Advanced Assessment Note - Skin Integrity Problem, Advanced Assess Coccyx Dressing Type: Allevyn Life, Tegaderm Film, Telfa Dressing Description: Intact Exudate Amount: Minimal Exudate Color: Yellow Integumentary Issue Intervention: Dressing Changed Angella Wound Tissue: Erythema (mild, immediately angella-wound) Angella Wound Swelling: Mild Wound Bed Color: Red, Yellow Wound Bed Constitution: Smooth Tissue (5%), Adhered Slough (95%) Wound Edges: Well Defined Site Odor: None Pressure Injury Stage: Unstageable Pressure Injury Present on Admit: Yes Skin Integrity Problem Comment: Wound remains slough-filled, w/ slightly more smooth tissue during this assessment. Santyl appears to be loosening slough, but patient is too tender to have site mechanically debrided using gauze. Mild erythema immediately angella-wound, w/ no associated swelling. Will give Santyl through the weekend to loosed necrotic tissue, then re-assess on Friday 11/17. Patient will most likely benefit from conservative sharp debridement at the bedside. Right Chest Dressing Type: Gauze, Packing (Algidex Ag) Dressing Description: Saturated (gauze used instead of more absorbent ABD; discussed w/ curing bin operator Karli that gauze is not absorbent enough.) Exudate Amount: Minimal Exudate Color: Yellow Exudate Characteristic(s): Cloudy, Thick Integumentary Issue Intervention: Dressing Changed Angella Wound Tissue: Erythema (mild, immediately angella-wound.), Thin, Scarred Angella Wound Swelling: None Wound Bed Color: Red, Yellow Wound Bed Constitution: Smooth Tissue (95%), Adhered Slough (5%) Wound Edges: Well Defined Site Odor: None Skin Integrity Problem Comment: Saturated gauze covering wound, w/ some mild associated dermatitis angella-wound as a result. Discussed w/ curing bin operator Karli importance of ABD pad, which is more absorbent. Angelal-wound erythema lessened after skin cleansed. Wound dimensions are slightly less than previous assessment , 2.5 cm from 6-9 o'clock. There is, however, a small area of adhered slough medially which was not noted during previous assessment. Remaining wound bed is 95% smooth tissue.Thick, cloudy exudate, but with no foul odor. Continue w/ Algidex Ag packing to manage exudate.
[2016-11-13] MEDS: ATORVASTATIN CALCIUM 10 MG TAB PO SCH (21:23)
[2016-11-14] MEDS: LEVOTHYROXINE 100 MCG TAB PO SCH (06:45)
[2016-11-14] MEDS: CARBIDOPA/LEVO CR 25 MG/100 MG TAB PO SCH ×4 (06:45→22:32)
[2016-11-14] MEDS: CLOPIDOGREL BISULFATE 75 MG TAB PO SCH (08:41)
[2016-11-14] MEDS: CHOLECALCIFEROL VIT D3 1,000 UNITS TAB PO SCH ×2 (08:41→22:32)
[2016-11-14] MEDS: metFORMIN HCL 850 MG TAB PO SCH ×2 (08:41→18:08)
[2016-11-14] MEDS: DOXAZOSIN MESYLATE 1 MG TAB PO SCH (08:41)
[2016-11-14] MEDS: SENNOSIDES 1 TAB PO SCH ×2 (08:43→22:32)
[2016-11-14] MEDS: MULTIVITAMINS 1 EACH TAB PO SCH (08:43)
[2016-11-14] MEDS: LOSARTAN POTASSIUM 50 MG TAB PO SCH (08:43)
[2016-11-14] MEDS: FUROSEMIDE 40 MG TAB PO SCH (08:50)
[2016-11-14] MEDS: COLLAGENASE 30 GM OINTMENT TP SCH (09:52)
--- NOTE | 2016-11-14 11:40 | SOAPPROG ---
SOAP Progress Note Assessment/Plan: Assessment: 81 yo female s/p fall, SAH, complicated by hx of PD, cognitive impairment, and recent weight loss. * SAH and impairments in mobility, self care, cognition: Initial FIM 55 on 11/09. Significant cognitive impairments requiring significant cueing for safety and basic ADLs. Planning to investigate discharge plan further to understand the son's capacity to care for patient at home. If cognitive status does not improve the dc plan may need to be modified. Continue PT for mobility, OT for self care, and BLOOD OR BLOOD BANK TECHNICIAN for cognition and communication. * Transient neurologic symptoms 11/10/16 with AMS and difficulty speaking. Head CT w/out new bleed. Complete recovery this morning. Query seizure? Appreciate Neurology consult by Dr. Guerrero: continue to monitor; no indication for anticonvulsants at present. * Dementia: W/U under way. Continue BLOOD OR BLOOD BANK TECHNICIAN. * Cachexia: Nutrition consult and monitoring. Daily weight. * Parkinsons Dz: Cont current meds, no changes * DM2: Good A1c control, cont metformin. * Htn/ hypotension: Reduced PO intake documented, and seems dehydrated on BMP. Held amlodipine 11/10/16; resume at 5 mg QHS rather than 10 mg 11/11/16; will d/ c 11/12/16. Reduce furosemide from 60 mg QD (consistent dose since 2012) to 20 mg QD with close attention to fluid accumulation. Encourage PO hydration. Continue to monitor. BUN/CR elevated this am. ? dehydration. May improve with hydration. Repeat chem 7 next week. * Dyslipidemia: continue atorvastatin. * CAD/?CHF? S/P TAVR: stable, cont current meds. * HypoThyroid: cont current meds * UTI: S/P Abx for Klebsiella, monitor for Sx/Sx * Anemia: stable, cont to monitor. Reticulocyte count and iron panel c/w anemia of chronic disease. * DVT PPx: anti-coag contraindicated 2/2 ICH. Will use teds, SCD's and progress ambulation. * FEN: reported to have poor PO overall, monitor closely and calorie count, daily weight. * Wound care: clarified wound care orders this morning. Continue care of chest wound s/p drainage, and limited sitting for coccygeal wound. Appreciate assistance of wound care nurse. Plan: 11/14/16 11:37 Subjective: No compliants per patient or nursing staff. Objective: Vital Signs Temp Pulse Resp BP Pulse Ox 36.6 C 63 15 107/59 L 97 11/14/16 06:26 11/14/16 06:26 11/14/16 06:26 11/14/16 08:43 11/14/16 06:26 Laboratory Results 11/10/16 06:22 11/12/16 11:00 11/13/16 11/14/16 11/15/16 05:59 05:59 05:59 Intake Total 1240 800 118 Output Total 1100 1100 Balance 140 -300 118 Physical Exam - Physical Exam General Appearance: WD/WN, alert, no apparent distress, thin EENT: PERRL/EOMI Respiratory: lungs clear, normal breath sounds Cardiac/Chest: No edema, No JVD Abdomen: normal bowel sounds, non-tender, soft Skin: normal color, warm/dry Extremities: normal range of motion Neuro/Psych: alert, cognition abnormalities, No oriented x 3 ICD10 Worksheet Patient Problems: Problems Problem Status Diagnosed Decubitus ulcer of ankle, stage 2 Acute Impaired mobility and activities of daily living Acute TIA (transient ischemic attack) Acute Aortic sclerosis Acute Aortic stenosis Acute Breast CA Acute Fall Acute Intracranial hemorrhage Acute Parkinsons disease Acute
[2016-11-14] MEDS: ATORVASTATIN CALCIUM 10 MG TAB PO SCH (22:32)
[2016-11-15] MEDS: LEVOTHYROXINE 100 MCG TAB PO SCH (04:53)
[2016-11-15] MEDS: CARBIDOPA/LEVO CR 25 MG/100 MG TAB PO SCH ×4 (06:16→22:13)
[2016-11-15] MEDS: metFORMIN HCL 850 MG TAB PO SCH ×2 (08:53→17:37)
[2016-11-15] MEDS: DOXAZOSIN MESYLATE 1 MG TAB PO SCH (08:57)
[2016-11-15] MEDS: CLOPIDOGREL BISULFATE 75 MG TAB PO SCH (08:57)
[2016-11-15] MEDS: CHOLECALCIFEROL VIT D3 1,000 UNITS TAB PO SCH ×2 (08:57→22:00)
[2016-11-15] MEDS: FUROSEMIDE 40 MG TAB PO SCH (08:58)
[2016-11-15] MEDS: LOSARTAN POTASSIUM 50 MG TAB PO SCH (08:59)
[2016-11-15] MEDS: MULTIVITAMINS 1 EACH TAB PO SCH (08:59)
[2016-11-15] MEDS: SENNOSIDES 1 TAB PO SCH ×2 (08:59→22:00)
--- NOTE | 2016-11-15 12:13 | SOAPPROG ---
SOAP Progress Note Assessment/Plan: Assessment: 81 yo female s/p fall, SAH, complicated by hx of PD, cognitive impairment, and recent weight loss. Medically stable. Patient not oriented to time,date. * SAH and impairments in mobility, self care, cognition: Initial FIM 55 on 11/09. Significant cognitive impairments requiring significant cueing for safety and basic ADLs. Planning to investigate discharge plan further to understand the son's capacity to care for patient at home. If cognitive status does not improve the dc plan may need to be modified. Continue PT for mobility, OT for self care, and DERMATOLOGY NURSE PRACTITIONER for cognition and communication. * Transient neurologic symptoms 11/10/16 with AMS and difficulty speaking. Head CT w/out new bleed. Complete recovery this morning. Query seizure? Appreciate Neurology consult by Dr. Guerrero: continue to monitor; no indication for anticonvulsants at present. * Dementia: W/U under way. Continue DERMATOLOGY NURSE PRACTITIONER. * Cachexia: Nutrition consult and monitoring. Daily weight. * Parkinsons Dz: Cont current meds, no changes * DM2: Good A1c control, cont metformin. * Htn/ hypotension: Reduced PO intake documented, and seems dehydrated on BMP. Held amlodipine 11/10/16; resume at 5 mg QHS rather than 10 mg 11/11/16; will d/ c 11/12/16. Reduce furosemide from 60 mg QD (consistent dose since 2012) to 20 mg QD with close attention to fluid accumulation. Encourage PO hydration. Continue to monitor. BUN/CR elevated this am. ? dehydration. May improve with hydration. Repeat chem 7 next week. * Dyslipidemia: continue atorvastatin. * CAD/?CHF? S/P TAVR: stable, cont current meds. * HypoThyroid: cont current meds * UTI: S/P Abx for Klebsiella, monitor for Sx/Sx. No suprapubic tenderness on todays exam. * Anemia: stable, cont to monitor. Reticulocyte count and iron panel c/w anemia of chronic disease. * DVT PPx: anti-coag contraindicated 2/2 ICH. Will use teds, SCD's and progress ambulation. * FEN: reported to have poor PO overall, monitor closely and calorie count, daily weight. * Wound care: clarified wound care orders this morning. Continue care of chest wound s/p drainage, and limited sitting for coccygeal wound. Appreciate assistance of wound care nurse. Plan: 11/14/16 11:37 11/15/16 12:09 Subjective: No c/o this am. Patient wants to know when she can go home. Objective: Vital Signs Temp Pulse Resp BP Pulse Ox 36.3 C 66 15 151/71 H 96 11/15/16 06:15 11/15/16 06:15 11/15/16 06:15 11/15/16 10:00 11/15/16 06:15 Laboratory Results 11/10/16 06:22 11/12/16 11:00 11/14/16 11/15/16 11/16/16 05:59 05:59 05:59 Intake Total 800 890 Output Total 1300 800 400 Balance -500 90 -400 Physical Exam - Physical Exam General Appearance: no apparent distress, thin, No WD/WN Respiratory: chest non-tender, lungs clear, normal breath sounds Cardiac/Chest: No edema, No JVD Abdomen: non-tender, soft Skin: normal color, warm/dry Extremities: normal range of motion, No swelling, No Romaine's sign Neuro/Psych: disoriented to time, No oriented x 3 ICD10 Worksheet Patient Problems: Problems Problem Status Diagnosed Decubitus ulcer of ankle, stage 2 Acute Impaired mobility and activities of daily living Acute TIA (transient ischemic attack) Acute Aortic sclerosis Acute Aortic stenosis Acute Breast CA Acute Fall Acute Intracranial hemorrhage Acute Parkinsons disease Acute
[2016-11-15] MEDS: COLLAGENASE 30 GM OINTMENT TP SCH (16:27)
[2016-11-15] MEDS: ATORVASTATIN CALCIUM 10 MG TAB PO SCH (22:00)
[2016-11-16] MEDS: LEVOTHYROXINE 100 MCG TAB PO SCH (06:04)
[2016-11-16] MEDS: CARBIDOPA/LEVO CR 25 MG/100 MG TAB PO SCH ×4 (06:05→22:48)
[2016-11-16] MEDS: metFORMIN HCL 850 MG TAB PO SCH ×2 (09:00→18:21)
[2016-11-16] MEDS: CLOPIDOGREL BISULFATE 75 MG TAB PO SCH (09:01)
[2016-11-16] MEDS: LOSARTAN POTASSIUM 50 MG TAB PO SCH (09:01)
[2016-11-16] MEDS: DOXAZOSIN MESYLATE 1 MG TAB PO SCH (09:01)
[2016-11-16] MEDS: MULTIVITAMINS 1 EACH TAB PO SCH (09:01)
[2016-11-16] MEDS: CHOLECALCIFEROL VIT D3 1,000 UNITS TAB PO SCH ×2 (09:01→20:30)
[2016-11-16] MEDS: SENNOSIDES 1 TAB PO SCH ×2 (09:01→20:29)
[2016-11-16] MEDS: FUROSEMIDE 40 MG TAB PO SCH (09:02)
[2016-11-16] MEDS ORDERED: LIDOCAINE 2% JELLY 5 ML TUBE TP PRN (09:53)
[2016-11-16] MEDS: COLLAGENASE 30 GM OINTMENT TP SCH (10:00)
--- NOTE | 2016-11-16 10:02 | SOAPPROG ---
SOAP Progress Note Assessment/Plan: Assessment: 81 yo female s/p fall, SAH, complicated by hx of PD, cognitive impairment, and recent weight loss. * SAH and impairments in mobility, self care, cognition: Initial FIM 55 on 11/09; improved to 80 on 11/16/16. Mobility is variable, little overall improvement. CRAIG and needs visual cues. Supervision fo rADLs. Period of confusion. * Significant cognitive impairments: decreased STM and exec fn. Will need 24 hr supervision. * Transient neurologic symptoms 11/10/16 with AMS and difficulty speaking. Head CT w/out new bleed. Complete recovery this morning. Query seizure? Appreciate Neurology consult by Dr. Guerrero: continue to monitor; no indication for anticonvulsants at present. * Cachexia: Nutrition consult and monitoring. Taking 90% of calories and 100% of protein. 3 kg weight gain. * Parkinsons Dz: Cont current meds, no changes * DM2: Good A1c control, cont metformin. * Htn/orthostatic hypotension: Reduced PO intake documented, and seems dehydrated on BMP. Held amlodipine 11/10/16; resume at 5 mg QHS rather than 10 mg 11/11/16; d/c'd 11/12/16. Reduce furosemide from 60 mg QD (consistent dose since 2012) to 20 mg QD with close attention to fluid accumulation. Encourage PO hydration. Continue to monitor. * Dyslipidemia: continue atorvastatin. * CAD/?CHF? S/P TAVR: stable, cont current meds. * HypoThyroid: cont current meds * UTI: S/P Abx for Klebsiella, monitor for Sx/Sx * Anemia: stable, cont to monitor. Reticulocyte count and iron panel c/w anemia of chronic disease. * DVT PPx: anti-coag contraindicated 2/2 ICH. Will use teds, SCD's and progress ambulation. * Wound care: Appreciate assistance of wound nurse. Continue care of chest wound s/p drainage, and limited sitting for coccygeal wound. Attended staffing, 15 min. D/W case mgmt, nursing, PT, OT , KILNMAN, warehouse lead. Needing 24 hour supervision. Plan for family conference 11/18/16, then discharge home same day or next day. 11/16/16 11:53 Subjective: Wants to go home. Says she wants to do things on her computer. Slept well. Denies pain, cough, dyspnea. Objective: Vital Signs Temp Pulse Resp BP Pulse Ox 36.5 C 68 16 143/69 H 97 11/16/16 06:05 11/16/16 06:05 11/15/16 20:00 11/16/16 09:01 11/16/16 06:05 Laboratory Results 11/10/16 06:22 11/12/16 11:00 11/15/16 11/16/16 11/17/16 05:59 05:59 05:59 Intake Total 890 2280 Output Total 800 400 300 Balance 90 1880 -300 - Time Spent With Patient Time Spent With Patient: Greater than 35 minutes floor time today, including more than 50% of time in coordination of care during staffing meeting, and counseling patient. Physical Exam - Physical Exam General Appearance: alert, no apparent distress, thin Respiratory: normal breath sounds, No crackles, No rhonchi, No wheezing Cardiac/Chest: regular rate, rhythm, No edema Skin: normal color, warm/dry Neuro/Psych: alert, normal mood/affect ICD10 Worksheet Patient Problems: Problems Problem Status Diagnosed Decubitus ulcer of ankle, stage 2 Acute Impaired mobility and activities of daily living Acute TIA (transient ischemic attack) Acute Aortic sclerosis Acute Aortic stenosis Acute Breast CA Acute Fall Acute Intracranial hemorrhage Acute Parkinsons disease Acute
--- NOTE | 2016-11-16 15:31 | WOCRNPDOC ---
THA Advanced Assessment Note - Skin Integrity Problem, Advanced Assess Coccyx Dressing Type: Allevyn Life, Tegaderm Film, Telfa Dressing Description: Clean/Dry, Intact Exudate Amount: None Integumentary Issue Intervention: Dressing Changed, Mechanical Debridement Angella Wound Tissue: Erythema Wound Bed Constitution: Granulation Tissue (30% visible through slough), Adhered Slough (70%) Wound Edges: Thick Site Measurement - Head-to-Toe Length X Width X Depth (cm): 3x1x0.3 Pressure Injury Stage: Unstageable Pressure Injury Present on Admit: Yes Skin Integrity Problem Comment: Cleaned with gauze and ns. skin prep to angella wound. Santyl to wound bed. Covered with Telfa and Tegaderm. Madeline RN in room for care. Santyl appears to be working well and it will likey debride with the continued enzymatic debridement without sharp intervention. Right Chest Dressing Type: Abdominal Pads, Packing Dressing Description: Intact, Shadowed Exudate Amount: Moderate Exudate Color: Yellow Exudate Characteristic(s): Thick Integumentary Issue Intervention: Dressing Changed, Dressing Initialed & Dated Angella Wound Tissue: Erythema Angella Wound Swelling: None Wound Bed Color: Red, Yellow Wound Bed Constitution: Granulation Tissue, Smooth Tissue, Undermining (12 oclock: 1 cm, 3 oclock 2.4 cm, 6 oclock, 1.3 cm 9 oclock 6.5 cm) Wound Edges: Not Attached Site Measurement - Head-to-Toe Length X Width X Depth (cm): 2x2x1.4 Skin Integrity Problem Comment: Wound with copious drainage as dressing was changed 5 hours ago and already shadowed. Tissue over wound bed thin and erythematic to 2 cm angella wound. Discussed possibliity of a wound vac with Dr. Jarrett, but as patient may discharge Wed it was felt that wouldnt be a great option for her. Patient's son was in the room for the care and questions were answered. He observed dressing change.
[2016-11-16] MEDS: ATORVASTATIN CALCIUM 10 MG TAB PO SCH (20:29)
[2016-11-17] MEDS: LEVOTHYROXINE 100 MCG TAB PO SCH (05:52)
[2016-11-17] MEDS: CARBIDOPA/LEVO CR 25 MG/100 MG TAB PO SCH ×4 (05:52→22:29)
[2016-11-17 06:45] VITALS: PULSE 66
[2016-11-17] MEDS: metFORMIN HCL 850 MG TAB PO SCH ×2 (09:49→17:37)
[2016-11-17] MEDS: COLLAGENASE 30 GM OINTMENT TP SCH (09:50)
[2016-11-17] MEDS: DOXAZOSIN MESYLATE 1 MG TAB PO SCH (09:50)
[2016-11-17] MEDS: CLOPIDOGREL BISULFATE 75 MG TAB PO SCH (09:50)
[2016-11-17] MEDS: CHOLECALCIFEROL VIT D3 1,000 UNITS TAB PO SCH ×2 (09:50→20:00)
[2016-11-17] MEDS: MULTIVITAMINS 1 EACH TAB PO SCH (09:51)
[2016-11-17] MEDS: LOSARTAN POTASSIUM 50 MG TAB PO SCH (09:51)
[2016-11-17] MEDS: FUROSEMIDE 40 MG TAB PO SCH (09:51)
[2016-11-17] MEDS: SENNOSIDES 1 TAB PO SCH ×2 (09:51→20:00)
[2016-11-17] MEDS: ACETAMINOPHEN 325 MG TAB PO PRN (09:53)
--- NOTE | 2016-11-17 13:56 | SOAPPROG ---
SOAP Progress Note Assessment/Plan: Assessment: 81 yo female s/p fall, SAH, complicated by hx of PD, cognitive impairment, and recent weight loss. * SAH and impairments in mobility, self care, cognition: Initial FIM 55 on 11/09; improved to 80 on 11/16/16. Mobility is variable, little overall improvement. SPOKANE and needs visual cues. Supervision fo rADLs. Period of confusion. * Significant cognitive impairments: decreased STM and exec fn. Will need 24 hr supervision. * Transient neurologic symptoms 11/10/16 with AMS and difficulty speaking. Head CT w/out new bleed. Complete recovery this morning. Query seizure? Appreciate Neurology consult by Dr. Guerrero: continue to monitor; no indication for anticonvulsants at present. * Cachexia: Nutrition consult and monitoring. Taking 90% of calories and 100% of protein. 3 kg weight gain. * Parkinsons Dz: Cont current meds, no changes * DM2: Good A1c control, cont metformin. * Htn/orthostatic hypotension: Reduced PO intake documented, and seems dehydrated on BMP. Held amlodipine 11/10/16; resume at 5 mg QHS rather than 10 mg 11/11/16; d/c'd 11/12/16. Reduce furosemide from 60 mg QD (consistent dose since 2012) to 20 mg QD with close attention to fluid accumulation. Encourage PO hydration. Continue to monitor. * Dyslipidemia: continue atorvastatin. * CAD/?CHF? S/P TAVR: stable, cont current meds. * HypoThyroid: cont current meds * UTI: S/P Abx for Klebsiella, monitor for Sx/Sx * Anemia: stable, cont to monitor. Reticulocyte count and iron panel c/w anemia of chronic disease. * DVT PPx: anti-coag contraindicated 2/2 ICH. Will use teds, SCD's and progress ambulation. * Wound care: Appreciate assistance of wound nurse. Continue care of chest wound s/p drainage, and limited sitting for coccygeal wound. Needing 24 hour supervision. Plan for family conference 11/18/16, then discharge home same day. 11/17/16 13:55 Subjective: No complaints. Slept well. Not in pain. Objective: Vital Signs Temp Pulse Resp BP Pulse Ox 36.4 C 66 16 166/75 H 99 11/17/16 06:43 11/17/16 06:43 11/17/16 06:43 11/17/16 09:51 11/17/16 06:43 Laboratory Results 11/10/16 06:22 11/12/16 11:00 11/16/16 11/17/16 11/18/16 05:59 05:59 05:59 Intake Total 2280 832 740 Output Total 400 300 Balance 1880 532 740 Physical Exam - Physical Exam General Appearance: WD/WN, alert, no apparent distress, thin Respiratory: normal breath sounds, No crackles, No rhonchi, No wheezing Cardiac/Chest: regular rate, rhythm, systolic murmur, No edema, No JVD Skin: normal color, warm/dry Neuro/Psych: alert, normal mood/affect, other (SP[place]ANE), No abnormal gait ICD10 Worksheet Patient Problems: Problems Problem Status Diagnosed Decubitus ulcer of ankle, stage 2 Acute Impaired mobility and activities of daily living Acute TIA (transient ischemic attack) Acute Aortic sclerosis Acute Aortic stenosis Acute Breast CA Acute Fall Acute Intracranial hemorrhage Acute Parkinsons disease Acute
--- NOTE | 2016-11-17 14:07 | PDOREHIP ---
Admission [facility] - Admission - 3 Day Assessment Period Admission Date/Day 1: 11/06/16 Day 2: 11/07/16 Day 3: 11/08/16 - Active Diagnoses Comorbidities and Co-existing Conditions at Admission: 90043. None of the Above - Skin Conditions Unhealed Pressure Ulcer (1 or more/Stage 1 or >)-Admission: 1. Yes # Unstageable Pressure Ulcers (Slough/Eschar)-Admission: 1 (coccyx) Discharge [facility] - Discharge - 3 Day Assessment Period 2 Days Prior to Anticipated Discharge Date: 11/16/16 1 Day Prior to Anticipated Discharge Date: 11/17/16 Anticipated Discharge Date: 11/18/16
[2016-11-17] MEDS: ATORVASTATIN CALCIUM 10 MG TAB PO SCH (20:00)
[2016-11-18] MEDS: LEVOTHYROXINE 100 MCG TAB PO SCH (06:10)
[2016-11-18] MEDS: CARBIDOPA/LEVO CR 25 MG/100 MG TAB PO SCH ×2 (06:11→12:32)
[2016-11-18 06:48] VITALS: RESP 15; TEMP 97.6; O2SAT 98
[2016-11-18] MEDS: MULTIVITAMINS 1 EACH TAB PO SCH (08:24)
[2016-11-18] MEDS: CHOLECALCIFEROL VIT D3 1,000 UNITS TAB PO SCH (08:24)
[2016-11-18] MEDS: FUROSEMIDE 40 MG TAB PO SCH (08:24)
[2016-11-18] MEDS: metFORMIN HCL 850 MG TAB PO SCH (08:24)
[2016-11-18] MEDS: CLOPIDOGREL BISULFATE 75 MG TAB PO SCH (08:24)
[2016-11-18] MEDS: SENNOSIDES 1 TAB PO SCH (08:24)
[2016-11-18] MEDS: LOSARTAN POTASSIUM 50 MG TAB PO SCH (08:26)
[2016-11-18] MEDS: DOXAZOSIN MESYLATE 1 MG TAB PO SCH (08:26)
[2016-11-18 08:30] VITALS: BP 110/78
[2016-11-18] MEDS: COLLAGENASE 30 GM OINTMENT TP SCH (12:47)
--- NOTE | 2016-11-18 19:04 | GDS ---
[f rep st] DISCHARGE SUMMARY ADMITTING DIAGNOSIS: Debility status post intraparenchymal hemorrhage due to a fall. DISCHARGE DIAGNOSIS: Debility status post intraparenchymal hemorrhage due to a fall. OTHER DISCHARGE DIAGNOSES: 1. Cognitive impairment. 2. Cachexia. 3. Parkinson disease. 4. Diabetes mellitus type 2. 5. Orthostatic hypotension. 6. Anemia. CONSULTATIONS: There was a consultation with Neurologist, Dr. Guerrero. PROCEDURES: There were none. COMPLICATIONS: There were none. HISTORY AND HOSPITAL COURSE: Mrs. Hamm had a fall and sustained an intraparenchymal hemorrhage on 10/13/2016. She was admitted to [facility] and was discharged on 10/28/2016 to [facility]. At [facility], she was noted to have acute weakness of the left arm and was returned to [facility], where a head CT showed almost complete resolution of the previous multiple bilateral subarachnoid and intraparenchymal hemorrhages, other than residual subarachnoid hemorrhage in the left parietooccipital lobe. The next day on 11/05/2016, she had an MRI of the brain, which ruled out a cerebrovascular accident. She had an MR angiogram, which was read as normal. Her left arm weakness resolved. She was diagnosed with a urinary tract infection. She was medically stabilized and discharged to inpatient rehabilitation. She did well in rehabilitation. Her initial Functional [place] Measure ( FIM) was 55 on 10/30/2016. This is consistent with needing assistance in all areas of mobility and self-are at the assisted level. Her FIM improved to 80 on 11/16/2016, which is on the threshold between assisted level of care and assisted living level of function. Her functional status was noted to be variable, some days she was able to accomplish more independently and other days she was able to accomplish less. She had transient neurologic symptoms on 11/10/2016 with altered mental status and difficulty speaking. She was sent for a head CT, which ruled out a new hemorrhage and she subsequently had complete resolution of symptoms. She was seen by neurologist Dr. Guerrero, who considered seizures to be in the differential diagnosis but did not think that there was an indication for anticonvulsants. She had no further similar symptoms during the rest of her stay. She was able to ambulate 200 feet using a front-wheeled walker with standby assist, needing verbal cues to walk straight as she had a tendency to veer left. She was able to climb and descend 6 steps with bilateral rails. She was able to accomplish transfers with standby assistance and verbal cues for safety. Activities of daily living otherwise were done with standby assist or set up, except for bathing where she needed minimal assistance to be complete with washing and drying. Regarding cognition, she continued to have deficits to functional memory, auditory comprehension, and verbal expression, as well as problem solving, though she had made slow gains. Still, she needed supervision and assistance with all critical functions, such as medication management and finances. She was hard of hearing and used a pocket talker. Regarding diet, feeding and swallowing, she was on a regular diet with no altered textures. Her nutritional needs were managed by the dietitian and she had an almost 3 kg weight gain while she was on the rehabilitation unit. Her weight on admission was 48.7 kg and on the day of discharge was 51.4 kg. She had a history of hypertension, and a transcatheter aortic valve replacement. She came to inpatient rehabilitation on antihypertensives, as well as furosemide. Her blood pressure was low, with a significant orthostatic decrease. Her amlodipine was decreased from 10 mg q.h.s. to 5 mg q.h.s. Her furosemide was reduced from 60 mg daily to 20 mg daily. She had no signs or symptoms of fluid overload or congestive heart failure. She had anemia. This was stable. Reticulocyte count and iron panel were consistent with anemia of chronic disease. She had chronic wounds, including a coccygeal decubitus ulcer and a surgical wound from drainage of a seroma on her right chest wall. She was seen by the wound care nurse. The coccygeal wound was un-stageable due to slough. This was treated with collagenase, which should be continued after her discharge. Regarding the chest wall surgical wound, the wound care nurse was contemplating using a wound VAC. However, given the complications of her care and her need for supervision with mobility and activities of daily living, it was decided that she would not go home without a wound VAC, and so the wound VAC was not initiated. There were no signs or symptoms of infection, and the wound was gradually healing. PHYSICAL EXAM ON THE DAY OF DISCHARGE: VITALS: Blood pressure was 142/59 at 6: 47 a.m. and at 8:26 a.m. was 110/78, heart rate was 66, respiratory rate was 15 , oxygen saturation was 98% on 2 L and CPAP at 6:47 in the morning. Her temperature was 36.4 degrees centigrade. GENERAL: This is a thin woman, cooperative, and in no acute distress, hard of hearing. HEART: There is a regular rate and rhythm. There is a 1 to 2 over 6 systolic murmur. LUNGS: Clear to auscultation bilaterally. ABDOMEN: Soft, nontender, nondistended with normoactive bowel sounds. EXTREMITIES: There is no cyanosis, clubbing, or edema. NEUROLOGIC: She is alert. Orientation was not tested. she is hard of hearing, which is somewhat improved but not completely with the pocket talker. She has reduced comprehension. She has slow responses. Her gait is normal with no assistive device, though she has supervision and sometimes hand- held assist and cues for safety. DISCHARGE PLAN: Condition upon discharge is good. Activity is ad ally, but she requires supervision for mobility and activities of daily living. Diet is regular. Date of next appointment: She is to follow up with neurologist, Dr. Guerrero. Her appointment is for 01/13/2017 at 2:15 p.m. she should follow up with her primary care provider, Dr. Sr, in 1-2 weeks. MEDICATIONS UPON DISCHARGE: 1. Multivitamin 1 p.o. daily. 2. Cholecalciferol 1000 units p.o. b.i.d. 3. Acetaminophen 650 mg p.o. q.4 hours p.r.n. 4. Metformin 850 mg p.o. b.i.d. 5. Simvastatin 20 mg p.o. q.h.s. 6. Senna 1 p.o. b.i.d. 7. Losartan 50 mg p.o. daily. 8. Levothyroxine 100 mcg p.o. daily. 9. Furosemide 20 mg p.o. daily. 10. Doxazosin 1 mg p.o. daily. 11. Collagenase 1 application to coccyx wound daily. 12. Clopidogrel 75 mg p.o. daily. 13. Carbidopa/levodopa 2 tabs p.o. t.i.d. at 1200, 800 and 2300, and 3 tabs p.o. daily at 0700. ISSUES TO BE ADDRESSED AT FOLLOWUP: 1. Cognition, mobility, and activities of daily living. She will continue to have physical therapy, occupational therapy, and speech and language pathology at home, and she can follow up with her primary care provider regarding these issues. 2. Anemia of chronic disease. Advise repeat blood counts in several weeks to assure that the anemia is resolving. 3. Skin with surgical wound on right chest wall and coccyx decubitus ulcer. She will have nurse visits for wound care and again, these can be followed up with primary care provider, Dr. Sr. 4. Neurologic status with Parkinson disease and status post intraparenchymal hemorrhage. She will follow up with Dr. Guerrero as planned. 5. Chronic conditions of dyslipidemia, diabetes mellitus, hypothyroidism, and hypertension. She has been stable, other than orthostatic hypotension with reduction of her antihypertensives. She can follow up with primary care provider, Dr. Sr, regarding these issues. 6. Cachexia with good weight gain during her hospitalization. She can follow up with her primary care provider. /[id number]/MODL MTDD
--- NOTE | 2016-11-20 14:21 | PDOREHIP ---
Admission [facility] - Admission - 3 Day Assessment Period Admission Date/Day 1: 11/06/16 Day 2: 11/07/16 Day 3: 11/08/16 Discharge [facility] - Discharge - 3 Day Assessment Period 2 Days Prior to Anticipated Discharge Date: 11/16/16 1 Day Prior to Anticipated Discharge Date: 11/17/16 Anticipated Discharge Date: 11/18/16 - Discharge Skin Conditions Unhealed Pressure Ulcer (1 or more/Stage 1 or >)-Discharge: 1. Yes # Unstageable Pressure Ulcers (Slough/Eschar)-Discharge: 1 (coccyx)
== END 2016-11-18 14:00 | disposition home health service (06) | DRG 945 ==
LOC: BREH 16:00
PROVIDERS: ADMIT Internal Medicine; ATTEND Internal Medicine
PROC: F07M3ZZ Motor Function Treatment of Musculoskeletal System - Whole Body (ICD-10-PCS; principal; 2016-11-06)
PROC: F08Z7ZZ Vocational Activities and Functional Community or Work Reintegration Skills Treatment (ICD-10-PCS; principal; 2016-11-06)
PROC: F0636ZZ Communicative/Cognitive Integration Skills Treatment of Neurological System - Whole Body (ICD-10-PCS; principal; 2016-11-06)
DX: S06.6X0D Traumatic subarachnoid hemorrhage without loss of consciousness, subsequent encounter (principal); N39.0 Urinary tract infection, site not specified; R64 Cachexia; L89.150 Pressure ulcer of sacral region, unstageable; I95.1 Orthostatic hypotension; G31.84 Mild cognitive impairment of uncertain or unknown etiology; R47.02 Dysphasia; R41.82 Altered mental status, unspecified; K59.00 Constipation, unspecified; I25.10 Atherosclerotic heart disease of native coronary artery without angina pectoris; E11.9 Type 2 diabetes mellitus without complications; G47.33 Obstructive sleep apnea (adult) (pediatric); I10 Essential (primary) hypertension; G20 Parkinson's disease; E03.9 Hypothyroidism, unspecified; E78.5 Hyperlipidemia, unspecified; K21.9 Gastro-esophageal reflux disease without esophagitis; D64.9 Anemia, unspecified; W19.XXXD Unspecified fall, subsequent encounter; Z95.2 Presence of prosthetic heart valve; Z85.3 Personal history of malignant neoplasm of breast; Z90.13 Acquired absence of bilateral breasts and nipples; Z95.5 Presence of coronary angioplasty implant and graft; Z79.84 Long term (current) use of oral hypoglycemic drugs
CPT/HCPCS: 82947-QW; 92507-GN; 92522-GN; 92526; 92610; 97110-GO; 97110-GP; 97112-GP; 97116-GP; 97162-GP; 97167-GO; 97530-GO; 97530-GP; 97535-GO; 99366-GO

== ENCOUNTER 2016-11-24 09:15 | Observation (INO) | payer OTHER ==
[2016-11-24 09:28] LABS: % IMMATURE GRANULYOCYTES 0.6 % (0.0-1.1); ABSOLUTE IMMATURE GRANULOCYTES 0.05 10^3/uL (0.00-0.10); ADD DIFF? NO; ADD MORPH? NO; ADD SCAN? NO; ATYPICAL LYMPHOCYTE FLAG 0 (0-99); FRAGMENT RBC FLAG 0 (0-99); HEMATOCRIT 27.4 % (38.0-47.0); HEMOGLOBIN 9.3 g/dL (12.6-16.3); LEFT SHIFT FLG 0 (0-99); LIPEMIA HEMOLYSIS FLAG 90 (0-99); MEAN CELL HEMOGLOBIN 34.4 pg (27.9-34.1); MEAN CELL HEMOGLOBIN CONCENTR. 33.9 g/dL (32.4-36.7); MEAN CELL VOLUME 101.5 fL (81.5-99.8); MEAN PLATELET VOLUME 9.1 fL (8.7-11.7); PLATELET CLUMPS FLAG 0 (0-99); PLATELET COUNT 175 10^3/uL (150-400); RED CELL DISTRIBUTION WIDTH 14.6 % (11.5-15.2)
--- NOTE | 2016-11-24 09:28 | EDPHY ---
H & P Time Seen by Provider: 11/24/16 09:24 HPI/ROS: CHIEF COMPLAINT: Left-sided weakness and expressive aphasia HISTORY OF PRESENT ILLNESS: 81-year-old female with a history of breast cancer diabetes and recent intracranial hemorrhage presents with left-sided weakness and expressive aphasia. Onset left-sided weakness at 8:00 a.m. this morning, associated with difficulty speaking. 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 Blood sugar was adequate. Symptoms are resolving and she is now able to move her left side better. No recent fall or headache. She sustained an intracranial hemorrhage on 10/13/2016 after a fall. She is currently on Plavix. REVIEW OF SYSTEMS: Constitutional: No fever, no chills Eyes: No visual changes ENT: No sore throat Respiratory: No cough, no shortness of breath Cardiac: No chest pain Gastrointestinal: No nausea, no vomiting, no abdominal pain Genitourinary: No hematuria, no dysuria Musculoskeletal: No leg pain or swelling Skin: No rash Neurological: No headache Psychiatric: No depression - Personal History Tetanus Vaccine Date: UNKNOWN - Medical/Surgical History PMH: Intracranial hemorrhage diabetes breast cancer Parkinson's disease decubitus ulcer right chest wall seroma, s/p I and D on 10/16/2016 Hx Asthma: Yes Hx Chronic Respiratory Disease: No Hx Diabetes: Yes Hx Cardiac Disease: Yes Hx Renal Disease: No Hx Cirrhosis: No Hx Alcoholism: No Hx HIV/AIDS: No Hx Splenectomy or Spleen Trauma: No Other PMH: 1. Parkinson's. 2. Aortic stenosis. 3. Hypertension. 4. Coronary artery disease. 5. Hyperlipidemia. 6. Breast cancer. 7. DM2. Surgical history. 1. Bilateral mastectomies with recent surgery for chest wall seroma. 2. Cholecystectomy. 3. umbilical hernia. 4. Transcatherter aortic valve replacement 2015. 5. sleep apnea. - Social History Smoking Status: Never smoked - Physical Exam Exam: General Appearance: Alert, follows commands, speech is difficult to understand Eyes: Pupils equal and round, no conjunctival pallor or injection ENT, Mouth: Mucous membranes moist Neck: Normal inspection Respiratory: right anterior chest wall -there is a open wound with serous drainage and packing in place, lungs are clear to auscultation anteriorly Cardiovascular: Regular rate and rhythm Gastrointestinal: Abdomen is soft and nontender Back: decubitus ulceration present in the gluteal fold Neurological: Alert, left-sided weakness, involving the left lower extremity greater than the upper extremity, slurred speech Skin: Warm and dry Extremities: Nontender, no pedal edema Psychiatric: Mood and affect normal Constitutional: Initial Vital Signs Temperature (C) 37 C 11/24/16 09:48 O2 Delivery Mode Room Air Allergies/Adverse Reactions: vancomycin Allergy (Severe, Verified 11/04/16 13:35) Tingling of mouth/throat Anise *RETIRED-07/04/12 [Anise] Allergy (Mild, Verified 11/04/16 13:35) SICK TO STOMACH mustard [Mustard] Allergy (Mild, Verified 11/04/16 13:35) SICK TO STOMACH diphenhydramine [Diphenhydramine] Allergy (Unknown, Verified 11/04/16 13:35) aspirin [Aspirin] Allergy (Verified 11/04/16 13:35) bacitracin [From Neosporin] Allergy (Verified 11/04/16 13:35) bacitracin zinc [From Neosporin] Allergy (Verified 11/04/16 13:35) banana Allergy (Verified 11/04/16 13:35) cefaclor [From Ceclor] Allergy (Verified 11/04/16 13:35) chlorpheniramine [From Chlor-Trimeton] Allergy (Verified 11/04/16 13:35) chlorpheniramine maleate [From Co-Pyronil 2] Allergy (Verified 11/04/16 13:35) egg Allergy (Verified 11/04/16 13:35) epoetin derick [From Epogen] Allergy (Verified 11/04/16 13:35) erythromycin base [Erythromycin Base] Allergy (Verified 11/04/16 13:35) gluten Allergy (Verified 11/04/16 13:35) gramicidin D [From Neosporin] Allergy (Verified 11/04/16 13:35) iodine [Iodine] Allergy (Verified 11/04/16 13:35) levofloxacin [From Levaquin] Allergy (Verified 11/04/16 13:35) mepivacaine HCl [From Carbocaine] Allergy (Verified 11/04/16 13:35) metformin HCl [From Glucophage XR] Allergy (Verified 11/04/16 13:35) naproxen [From Naprosyn] Allergy (Verified 11/04/16 13:35) neomycin sulfate [From Neosporin] Allergy (Verified 11/04/16 13:35) omeprazole [From Prilosec] Allergy (Verified 11/04/16 13:35) omeprazole magnesium [From Prilosec] Allergy (Verified 11/04/16 13:35) Penicillins Allergy (Verified 11/04/16 13:35) phenylpropanolamine HCl [From Chlor-Trimeton] Allergy (Verified 11/04/16 13:35) polymyxin B [From Neosporin] Allergy (Verified 11/04/16 13:35) polymyxin B sulfate [From Neosporin] Allergy (Verified 11/04/16 13:35) povidone-iodine [From Betadine] Allergy (Verified 11/04/16 13:35) prazosin HCl [From Minipress] Allergy (Verified 11/04/16 13:35) procaine [Procaine] Allergy (Verified 11/04/16 13:35) procaine HCl [From Novocain] Allergy (Verified 11/04/16 13:35) pseudoephedrine HCl [From Co-Pyronil 2] Allergy (Verified 11/04/16 13:35) soap [From Betadine] Allergy (Verified 11/04/16 13:35) sulfamethoxazole [From Bactrim] Allergy (Verified 11/04/16 13:35) trimethoprim [From Bactrim] Allergy (Verified 11/04/16 13:35) hyperthyroid medications Allergy (Uncoded 11/04/16 13:34) Home Medications: Medication Instructions Recorded Cholecalciferol Vit D3 [Vitamin D3 1,000 units PO BID 10/21/16 (*)] Multivitamins [Multivitamin (*)] 1 each PO DAILY 10/21/16 Carbidopa/Levo Cr 25/100Mg 2 tab PO TID@1200,1800,2300 #180 11/17/16 [Sinemet CR 25/100 MG (*)] tab.cr Carbidopa/Levo Cr 25/100Mg 3 tab PO DAILY@07 #90 tab.cr 11/17/16 [Sinemet CR 25/100 MG (*)] Clopidogrel Bisulfate [Clopidogrel] 75 mg PO DAILY #30 tablet 11/17/16 Collagenase [Santyl (*)] 1 [place] TP DAILY #1 tube 11/17/16 Furosemide [Lasix 40 MG (*)] 20 mg PO DAILY #15 tab 11/17/16 Levothyroxine [Synthroid 100 mcg 100 mcg PO DAILY06 #30 tab 11/17/16 (*)] Losartan Potassium [Cozaar 50 mg 50 mg PO DAILY #30 tab 11/17/16 (*)] Simvastatin [Zocor] 20 mg PO HS #30 tablet 11/17/16 metFORMIN HCL [Glucophage 850 mg 850 mg PO BIDMEAL #60 tab 11/17/16 (*)] Acetaminophen [Tylenol 325mg (*)] 325 - 630 mg PO Q4HRS PRN 11/24/16 Docusate Sodium [Colace 100 MG (*)] 300 mg PO DAILY@12 11/24/16 Doxazosin Mesylate [Cardura 1 MG 1 mg PO HS@23 11/24/16 (*)] Herbals/Supplements -Info Only 1 ea PO DAILY 11/24/16 Medical Decision Making - Diagnostics EKG Interpretation: EKG interpreted by me reveals 1st degree AV block, rate 60, left bundle branch block. ED Course/Re-evaluation: This patient presented as a stroke alert. I met the patient in the hallway on arrival. She went directly to CT scan. Past medical record reviewed And revealed a recent intracranial hemorrhage. I consulted with Final with [facility] telemedicine. Given her recent intracranial hemorrhage, she is not a tPA candidate. I will proceed with CTA the head and neck to rule out a large vessel occlusion. CT scan of the brain read by Dr. Miguel A Swift reveals a persistent small subarachnoid hemorrhage, no evidence of acute stroke. Will proceed with CTA of the head and neck. IV normal saline 500 mL given because of mild dehydration, with a BUN of 24 and normal creatinine. 9:40 a.m.- symptoms are resolving. Normal strength in the left upper extremity and left lower extremity. She continues to have slurred speech, but her speech is more comprehensible. She states that she was taken off aspirin and continues to take Plavix. She has an allergy to iodine and to Benadryl. I asked her about her iodine allergy and she states she is able to take IV contrast for CT scans without any reaction. She has a sensitivity to iodine based skin cleansers. CTA of the head and neck read by Dr. Miguel A Swift reveals no evidence of acute thrombus. The hospitalist service was consulted for admission. This patient utilized 40 minutes of critical care time exclusive of unbundled procedures. Differential Diagnosis: Altered mental status including but not limited to hypoglycemia, infectious process, electrolyte abnormality, head injury and intoxicants. - Data Points Laboratory Results: Laboratory Results 11/24/16 09:00 11/24/16 09:00 11/24/16 11/24/16 09:14 09:00 WBC 7.96 10^3/uL (3.80-9.50) RBC 2.70 L 10^6/uL (4.18-5.33) Hgb 9.3 L g/dL (12.6-16.3) POC Hgb 9.9 L gm/dL (12.3-15.9) Hct 27.4 L % (38.0-47.0) POC Hct 29 L % (35.5-47.5) MCV 101.5 H fL (81.5-99.8) MCH 34.4 H pg (27.9-34.1) MCHC 33.9 g/dL (32.4-36.7) RDW 14.6 % (11.5-15.2) Plt Count 175 10^3/uL (150-400) MPV 9.1 fL (8.7-11.7) Neut % (Auto) 78.0 H % (39.3-74.2) Lymph % (Auto) 12.8 L % (15.0-45.0) Randall % (Auto) 5.9 % (4.5-13.0) Eos % (Auto) 2.3 % (0.6-7.6) Baso % (Auto) 0.4 % (0.3-1.7) Nucleat RBC Rel Count 0.0 % (0.0-0.2) Absolute Neuts (auto) 6.21 10^3/uL (1.70-6.50) Absolute Lymphs (auto) 1.02 10^3/uL (1.00-3.00) Absolute Monos (auto) 0.47 10^3/uL (0.30-0.80) Absolute Eos (auto) 0.18 10^3/uL (0.03-0.40) Absolute Basos (auto) 0.03 10^3/uL (0.02-0.10) Absolute Nucleated RBC 0.00 10^3/uL (0-0.01) Immature Gran % 0.6 % (0.0-1.1) Immature Gran # 0.05 10^3/uL (0.00-0.10) POC Sodium 140 mEq/L (134-144) Sodium 139 mEq/L (134-144) POC Potassium 4.6 mEq/L (3.3-5.0) Potassium 4.8 mEq/L (3.5-5.2) POC Chloride 104 mEq/L (96-108) Chloride 106 mEq/L (97-110) Carbon Dioxide 27 mEq/l (22-31) Anion Gap 6 mEq/L (8-16) POC BUN 24 H mg/dL (7-23) BUN 23 mg/dL (7-23) Creatinine 0.9 mg/dL (0.6-1.0) POC Creatinine 1.0 mg/dL (0.6-1.2) Estimated GFR > 60 Glucose 190 H mg/dL (70-100) POC Glucose 196 H mg/dL (70-100) Calcium 8.8 mg/dL (8.5-10.4) Troponin I 0.037 H ng/mL (0-0.034) Medications Given: Discontinued Medications Sodium Chloride (Ns) 500 mls @ 0 mls/hr IV ONCE ONE PRN Reason: As Directed Stop: 11/24/16 09:32 Last Admin: 11/24/16 09:47 Dose: 500 mls Point of Care Test Results: 11/24/16 09:14 POC Sodium 140 POC Potassium 4.6 POC Chloride 104 POC BUN 24 H POC Creatinine 1.0 POC Glucose 196 H Departure - Departure Disposition: [facility] Inpatient Acute Clinical Impression: Acute ischemic stroke Condition: Fair
[2016-11-24] MEDS ORDERED: NS 500 ML IV ONE (09:31)
[2016-11-24] MEDS ORDERED: IOPAMIDOL (ISOVUE 370) 100 ML BTL IV ONE (09:36)
--- NOTE | 2016-11-24 09:41 | CT ---
CT Brain Without Contrast 0 920 hours History: Stroke alert. Dysphasia with left sided weakness. Technique: Axial computed tomographic images of the brain without contrast. Images were reconstruct ed down to 1.25 mm slice thickness. Dose reduction techniques were utilized. Comparison to prior CT study from November 10, 2016 as well as studies dating back to October 21 6 and MRI from November 05, 2016 Findings: There is a tiny amount of residual subarachnoid hemorrhage over the left occipital lobe po steriorly. Maturation of intraparenchymal contusion is once again noted superior left temporal lobe a djacent to the sylvian fissure as well as posterior left frontal lobe just above the sylvian fissure. Ventricles, cisterns, and sulci are widened consistent with stable mild age-related atrophy. No hydro cephalus, masses, midline shift/herniation, or subdural hematomas. No new intraparenchymal hemorrhage or mass effect. Stable moderate hypodensities are seen in the white matter of bilateral cerebral hem ispheres. There is no acute peripheral cerebral infarct seen. Arteriosclerotic calcifications are n oted associated with distal ICA in the parasellar location bilaterally. Bone windows demonstrate no displaced fractures. There is persistent complex collection in the right maxillary sinus with some calcifications. The rem ainder of the paranasal sinuses are clear. Impression: 1. Stable mild age-related atrophy. 2. Tiny amount of residual subarachnoid hemorrhage over the left occipital lobe when compared to the prior studies. 3. Stable moderate nonspecific hypodensities in the white matter of bilateral cerebral hemispheres. D ifferential diagnosis includes microvascular ischemic disease, post-infectious/post-inflammatory sequ elaine, atypical demyelinating disease, or migraine-related sequela. Small white matter lacunar infarcts may also have this appearance. 4. No evidence for acute cerebral infarction. These findings were discussed by telephone with Dr. Ashlee Solis at 0 929 hours.
[2016-11-24 09:45] LABS: ANION GAP 6 mEq/L (8-16); CALCIUM 8.8 mg/dL (8.5-10.4); CARBON DIOXIDE 27 mEq/l (22-31); CHLORIDE 106 mEq/L (97-110); CREATININE 0.9 mg/dL (0.6-1.0); GLOMERULAR FILTRATION RATE > 60; GLUCOSE 190 mg/dL (70-100); POTASSIUM 4.8 mEq/L (3.5-5.2)
--- NOTE | 2016-11-24 09:54 | CPEKG ---
Heart Rate: 61 RR Interval: 984 P-R Interval: 220 QRSD Interval: 154 QT Interval: 480 QTC Interval: 484 P [place]: 62 QRS [place]: -25 T Wave [place]: 106 EKG Severity - ABNORMAL ECG - EKG Impression: SINUS RHYTHM EKG Impression: FIRST DEGREE AV BLOCK EKG Impression: LEFT BUNDLE BRANCH BLOCK Electronically Signed By: Ashlee Solis 24-Nov-2016 10:08:30
[2016-11-24 09:56] LABS: TROPONIN I 0.037 ng/mL (0-0.034)
[2016-11-24 10:05] LABS: SODIUM 139 mEq/L (134-144)
--- NOTE | 2016-11-24 10:41 | CT ---
CT Angiogram of the Head and Neck 0 957 hours History: Stroke alert. Dysphasia. Left sided weakness. Technique: Spiral imaging was obtained from the aortic arch through the skull during the administrati on of 100 mL Isovue-370 IV contrast. The images were reviewed in multiple planes. Volume rendering wa s performed by me, as well. Dose reduction techniques were utilized. Findings: CT Angiogram Neck: The aortic arch has a normal contour. There is moderate atherosclerotic calcified plaque at the aortic arch level. The great vessels off the aortic arch are normal in appearance. The common carotid artery has a normal contour bilaterally. Mild calcified plaque is present involving th e right and left carotid bulb without significant encroachment upon the lumen.. The ECA and ICA are n ormal without plaque formation or stenosis. The vertebral arterial system within the neck is normal i n appearance without stenosis, as well. The left vertebral artery is dominant with a small caliber ri ght vertebral artery. The origin of the vertebral artery is also normal bilaterally. There is no poncho dence of aneurysm or dissection. Images through the neck demonstrate no significant lymphadenopathy. A few small subcentimeter lymph n odes are seen. The musculature is symmetric. The submandibular glands and parotid glands are normal i n appearance bilaterally. CT Angiogram [place]: The distal ICA at the base of the brain has a normal appearance bilate rally without evidence of stenosis. No significant plaque formation is seen. There is some calcified plaque at the carotid siphon bilaterally without significant stenosis. There is normal branching into the anterior and middle cerebral arteries. The anterior communicating artery is normal in appearance . There is no cutoff of flow or evidence of aneurysm. The vertebrobasilar system demonstrates normal contrast enhancement without evidence of stenosis or a neurysm. There is normal branching into the posterior inferior cerebellar artery, as well as the supe rior cerebellar artery. The distal right vertebral artery terminates at the level of the posterior in ferior cerebellar artery. There is a dominant posterior communicating artery on the left with major c ontribution to the left posterior cerebral artery. There is no evidence of a posterior communicating artery on the right. Imaging through the brain demonstrates no evidence of intracranial hemorrhage, subdural collection, vascular malformation, or evidence of acute cerebral infarction. Impression: 1. No significant stenosis associated with the carotid system with calcified plaque at the carotid bu lb level bilaterally without significant encroachment upon the lumen. 2. No evidence of intraluminal thrombus involving the [place] with normal variation as detai led above. Note: All calculations were performed using NASCET criteria. These findings were discussed by telephone with Dr. Ashlee Solis at 1039hrs.
[2016-11-24] MEDS ORDERED: ACETAMINOPHEN 325 MG TAB PO PRN ×2 (13:42→17:09)
[2016-11-24] MEDS ORDERED: ONDANSETRON DISINTEGRATING 4 MG TAB PO PRN (13:42)
[2016-11-24] MEDS ORDERED: ONDANSETRON 4 MG/2 ML VIAL IVP PRN (13:42)
[2016-11-24] MEDS ORDERED: NS 1,000 ML IV SCH (13:45)
[2016-11-24 13:46] LABS: COLOR PALE YELLOW; LEUKOCYTE ESTERASE,URINE NEGATIVE (NEGATIVE); NITRITE,URINE NEGATIVE (NEGATIVE)
--- NOTE | 2016-11-24 13:48 | PDGENHP ---
History and Physical - Chief Complaint Acute paresis - History of Present Illness PCP: Dr. Sr Primary neurologist Dr. Guerrero HPI: 81-year-old female presenting with acute paresis located on the left side with associated aphasia and dysarthria with onset of symptoms around 8:00 a.m. on the day of presentation. Duration was persistent thereafter and began to subside in our emergency department. Patient reports that her most notable symptom was which she characterizes as weakness and passing out, and she is otherwise unable to describe the other symptoms. She reports that she had been feeling well on the day prior to presentation and she had taken both her Sinemet and levothyroxine on the morning of presentation. She has recently been transitioned home from inpatient rehab on November 18. Outside of some associated constipation, she denies any dysuria, polyuria, cough, fever, chills , worsening of pain at her wound sites. She has been having routine wound care at home. History Information - Allergies/Home Medication List Allergies/Adverse Reactions: vancomycin Allergy (Severe, Verified 11/04/16 13:35) Tingling of mouth/throat Anise *RETIRED-07/04/12 [Anise] Allergy (Mild, Verified 11/04/16 13:35) SICK TO STOMACH mustard [Mustard] Allergy (Mild, Verified 11/04/16 13:35) SICK TO STOMACH diphenhydramine [Diphenhydramine] Allergy (Unknown, Verified 11/04/16 13:35) aspirin [Aspirin] Allergy (Verified 11/04/16 13:35) bacitracin [From Neosporin] Allergy (Verified 11/04/16 13:35) bacitracin zinc [From Neosporin] Allergy (Verified 11/04/16 13:35) banana Allergy (Verified 11/04/16 13:35) cefaclor [From Ceclor] Allergy (Verified 11/04/16 13:35) chlorpheniramine [From Chlor-Trimeton] Allergy (Verified 11/04/16 13:35) chlorpheniramine maleate [From Co-Pyronil 2] Allergy (Verified 11/04/16 13:35) egg Allergy (Verified 11/04/16 13:35) epoetin derick [From Epogen] Allergy (Verified 11/04/16 13:35) erythromycin base [Erythromycin Base] Allergy (Verified 11/04/16 13:35) gluten Allergy (Verified 11/04/16 13:35) gramicidin D [From Neosporin] Allergy (Verified 11/04/16 13:35) iodine [Iodine] Allergy (Verified 11/04/16 13:35) levofloxacin [From Levaquin] Allergy (Verified 11/04/16 13:35) mepivacaine HCl [From Carbocaine] Allergy (Verified 11/04/16 13:35) metformin HCl [From Glucophage XR] Allergy (Verified 11/04/16 13:35) naproxen [From Naprosyn] Allergy (Verified 11/04/16 13:35) neomycin sulfate [From Neosporin] Allergy (Verified 11/04/16 13:35) omeprazole [From Prilosec] Allergy (Verified 11/04/16 13:35) omeprazole magnesium [From Prilosec] Allergy (Verified 11/04/16 13:35) Penicillins Allergy (Verified 11/04/16 13:35) phenylpropanolamine HCl [From Chlor-Trimeton] Allergy (Verified 11/04/16 13:35) polymyxin B [From Neosporin] Allergy (Verified 11/04/16 13:35) polymyxin B sulfate [From Neosporin] Allergy (Verified 11/04/16 13:35) povidone-iodine [From Betadine] Allergy (Verified 11/04/16 13:35) prazosin HCl [From Minipress] Allergy (Verified 11/04/16 13:35) procaine [Procaine] Allergy (Verified 11/04/16 13:35) procaine HCl [From Novocain] Allergy (Verified 11/04/16 13:35) pseudoephedrine HCl [From Co-Pyronil 2] Allergy (Verified 11/04/16 13:35) soap [From Betadine] Allergy (Verified 11/04/16 13:35) sulfamethoxazole [From Bactrim] Allergy (Verified 11/04/16 13:35) trimethoprim [From Bactrim] Allergy (Verified 11/04/16 13:35) hyperthyroid medications Allergy (Uncoded 11/04/16 13:34) Home Medications: Cholecalciferol Vit D3 [Vitamin D3 (*)] 1,000 units PO BID 10/21/16 [Last Taken 11/23/16] Multivitamins [Multivitamin (*)] 1 each PO DAILY 10/21/16 [Last Taken 11/04/16] Acetaminophen [Tylenol 325mg (*)] 325 - 630 mg PO Q4HRS PRN 11/24/16 [Last Taken Unknown] Docusate Sodium [Colace 100 MG (*)] 300 mg PO DAILY@12 11/24/16 [Last Taken ] Doxazosin Mesylate [Cardura 1 MG (*)] 1 mg PO HS@23 11/24/16 [Last Taken ] Herbals/Supplements -Info Only 1 ea PO DAILY 11/24/16 [Last Taken Unknown] I have personally reviewed and updated: family history, medical history, social history, surgical history - Past Medical History coronary artery disease, hypertension, hyperlipidemia, TIA Additional medical history: Parkinon's disease, aortic stenosis, intracranial hemorrhage status post mechanical fall in September of 2016, Klebsiella urinary tract infection 11/04/2016, breast cancer, decubitus ulcers - Surgical History Reports: cholecystectomy, colectomy, hernia repair, mastectomy (bilateral, most recent in 2012/recent excision of right chest wall seroma with FENG indwelling) - Family History Additional family history: Both parents are - Social History Smoking Status: Never smoked Alcohol Use: None Drug Use: None Additional social history: Recently transitioned home from inpatient rehab Review of Systems ROS: 10pt was reviewed & negative except for what was stated in HPI & below Constitutional: Reports: weakness Neurological: Reports: weakness, other (Dysarthria, aphasia, paresis) Physical Exam Temp Pulse Resp BP Pulse Ox 36.6 C 60 16 184/64 H 99 11/24/16 11:44 11/24/16 11:44 11/24/16 11:44 11/24/16 11:44 11/24/16 11:44 Constitutional: no apparent distress, appears nourished, not in pain, chronically ill appearing, No uncomfortable Eyes: PERRL, anicteric sclera, EOMI Ears, Nose, Mouth, Throat: hard of hearing, other (Dry mucous membranes) Cardiovascular: systolic murmur (3/6 at the right sternal border), No irregularly irregular, No tachycardia, No edema Respiratory: no respiratory distress, no rales or rhonchi, clear to auscultation Gastrointestinal: normoactive bowel sounds, soft, non-tender abdomen, no palpable masses Genitourinary: no bladder fullness, other (Mild right-sided suprapubic tenderness) Skin: other (Induration around her right chest wound site with packing in place mild tenderness no particular erythema and no fluctuance) Musculoskeletal: full muscle strength Neurologic: AAOx3, sensation intact bilaterally, CN II-XII Intact, No weakness ( Motor strength 5/5 bilaterally), No facial droop Psychiatric: not anxious, thought process linear, other (Concentration is 0/7), No agitated Lab Data & Imaging Review 11/24/16 09:00 11/24/16 09:00 WBC 7.96 10^3/uL (3.80-9.50) 11/24/16 09:00 RBC 2.70 10^6/uL (4.18-5.33) L 11/24/16 09:00 Hgb 9.3 g/dL (12.6-16.3) L 11/24/16 09:00 POC Hgb 9.9 gm/dL (12.3-15.9) L 11/24/16 09:14 Hct 27.4 % (38.0-47.0) L 11/24/16 09:00 POC Hct 29 % (35.5-47.5) L 11/24/16 09:14 MCV 101.5 fL (81.5-99.8) H 11/24/16 09:00 MCH 34.4 pg (27.9-34.1) H 11/24/16 09:00 MCHC 33.9 g/dL (32.4-36.7) 11/24/16 09:00 RDW 14.6 % (11.5-15.2) 11/24/16 09:00 Plt Count 175 10^3/uL (150-400) 11/24/16 09:00 MPV 9.1 fL (8.7-11.7) 11/24/16 09:00 Neut % (Auto) 78.0 % (39.3-74.2) H 11/24/16 09:00 Lymph % (Auto) 12.8 % (15.0-45.0) L 11/24/16 09:00 [place] % (Auto) 5.9 % (4.5-13.0) 11/24/16 09:00 Eos % (Auto) 2.3 % (0.6-7.6) 11/24/16 09:00 Baso % (Auto) 0.4 % (0.3-1.7) 11/24/16 09:00 Nucleat RBC Rel Count 0.0 % (0.0-0.2) 11/24/16 09:00 Absolute Neuts (auto) 6.21 10^3/uL (1.70-6.50) 11/24/16 09:00 Absolute Lymphs (auto) 1.02 10^3/uL (1.00-3.00) 11/24/16 09:00 Absolute Monos (auto) 0.47 10^3/uL (0.30-0.80) 11/24/16 09:00 Absolute Eos (auto) 0.18 10^3/uL (0.03-0.40) 11/24/16 09:00 Absolute Basos (auto) 0.03 10^3/uL (0.02-0.10) 11/24/16 09:00 Absolute Nucleated RBC 0.00 10^3/uL (0-0.01) 11/24/16 09:00 Immature Gran % 0.6 % (0.0-1.1) 11/24/16 09:00 Immature Gran # 0.05 10^3/uL (0.00-0.10) 11/24/16 09:00 POC Sodium 140 mEq/L (134-144) 11/24/16 09:14 Sodium 139 mEq/L (134-144) 11/24/16 09:00 POC Potassium 4.6 mEq/L (3.3-5.0) 11/24/16 09:14 Potassium 4.8 mEq/L (3.5-5.2) 11/24/16 09:00 POC Chloride 104 mEq/L (96-108) 11/24/16 09:14 Chloride 106 mEq/L (97-110) 11/24/16 09:00 Carbon Dioxide 27 mEq/l (22-31) 11/24/16 09:00 Anion Gap 6 mEq/L (8-16) 11/24/16 09:00 POC BUN 24 mg/dL (7-23) H 11/24/16 09:14 BUN 23 mg/dL (7-23) 11/24/16 09:00 Creatinine 0.9 mg/dL (0.6-1.0) 11/24/16 09:00 POC Creatinine 1.0 mg/dL (0.6-1.2) 11/24/16 09:14 Estimated GFR > 60 11/24/16 09:00 Glucose 190 mg/dL (70-100) H 11/24/16 09:00 POC Glucose 196 mg/dL (70-100) H 11/24/16 09:14 Calcium 8.8 mg/dL (8.5-10.4) 11/24/16 09:00 Troponin I 0.037 ng/mL (0-0.034) H 11/24/16 09:00 Visualized and Interpreted EKG results: Yes EKG Interpretation: Positive for: other (Left bundle branch block, first-degree AV block) Assessment & Plan Assessment: 81-year-old female presents with acute paresis, dysarthria, aphasia Plan: 1. Possible CVA. Acute, new problem this provider, further workup indicated. Patient presenting with a constellation of neurologic symptoms including left pili paresis, aphasic, dysarthria, in the setting of previous TIA as well as intracranial hemorrhages. -noncontrast head CT demonstrates no acute intracranial hemorrhage and CT angiogram demonstrates calcified plaques but no flow-limiting stenosis anteriorly or posteriorly -get Neurology consultation and hold on MRI into the patient has been seen by them given that she recently underwent an MRI 2 weeks ago -reviewed outside records including discharge summary by Dr. Lan Jarrett from 11/18/2016, characterizing patient's stay at inpatient rehab which consisted of left upper extremity paresis with a negative workup including MRI and MRA, determined to be secondary to urinary tract infection causing transient neuro symptoms with a subsequent event of altered mental status warranting neurology consultation by Dr. Guerrero in consideration of possible seizure, that being said the patient was not initiated on any antiepileptic medication at that time -get urinalysis, urine culture, blood cultures and consider infectious etiology as the cause of her neurologic changes -stroke order set placed, get swallow eval given concern regarding dysarthria in advance to diabetic diet if she passes, normal saline in the interim -PT/OT/case management 2. Suspected pressure injury. Present on arrival, patient has a known history of decubitus ulcer posteriorly as well as a wound receiving outpatient wound care on her anterior chest -wound care consultation appreciated -does not appear the patient has an actively infected wound on her anterior chest we will obtain blood cultures and repeat her CBC in a.m., monitoring for fever, holding antibiotics 3. Hypertension. Acute worsening of chronic condition, potentially reactive hypertension in the setting of neurovascular injury, continue to monitor systolic blood pressures and allow permissive hypertension with systolic blood pressures ranging up to 220 outside of any neurologic changes 4. Parkinson's disease. Chronic, continue patient's home medications once reconciled 5. Diabetes mellitus type 2. Chronic, continue patient's home medications once reconciled -placed on insulin sliding scale at this time Diet. NPO with PROCUREMENT CLERK eval and IV fluids Prophylaxis. High risk patient, remain on SCDs while she is getting the above evaluation Code. Patient has a most form which says do not resuscitate and the patient has reported to me that she would like to keep her advanced directive intact and not modify her code status at this time, her youngest son is her MPOA Disposition. Anticipated discharge is 11/25/2016, pending further workup as outlined above. I have discussed the patient's presentation with Jennifer Hill, hospitalist provider, she signed out the patient to me to be admitted.
[2016-11-24] MEDS ORDERED: GADOBUTROL 10 ML VIAL IVP ONE ×2 (15:13→15:18)
--- NOTE | 2016-11-24 16:29 | MR ---
MRI of the Brain (Without and With Contrast) at 1454 hours Clinical Indications: History of breast cancer, recent traumatic subarachnoid hemorrhage. Altered m ental status. Technique: T1-weighted images were acquired axially and sagittally from the foramen magnum to the ve rtex. Axial fast inversion-recovery, fast T2-weighted, and diffusion-weighted axial images were obta ined, without contrast. Postcontrast axial and coronal images, with the uneventful intravenous admin istration of 5.5 mL Gadavist contrast. Comparison: CT brain today. Findings: The ventricles, cisterns, and sulci are widened consistent with atrophy. No hydrocephalus , midline shift, herniation, or epidural/subdural hematomas. Diffusion-weighted images demonstrate n o acute infarct. Subacute cortical hemorrhage involving the left frontal lobe parasylvian region, me asuring 20 x 10 mm, without associated enhancement or mass effect. More superiorly in the left front al lobe, there is a smaller area of cortical subacute hemorrhage, measuring 8 x 6 mm, without enhance ment. No intraaxial enhancing lesions. Regions of subarachnoid hemorrhage scattered bilateral front al lobes parafalcine regions, left frontal subcortical white matter, hemosiderin surrounding the prev iously described left frontal parasylvian hemorrhages, hemosiderin with old infarct in the posterior right side of the mesencephalon. Cerebellar tonsils are in normal position. Pituitary gland is normal in size. Normal signal flow-void in the superior sagittal sinus, basilar artery, and bilateral internal carotid arteries indicating p atency. Several nonspecific bilateral white matter hyperintense T2/FLAIR signal abnormalities withou t mass effect or enhancement. Postcontrast images demonstrate no enhancing lesions or abnormal lepto meningeal enhancement. Complex fluid opacifying the right maxillary sinus. Impressions 1. Several regions of subarachnoid hemorrhage bilateral frontal and parietal lobes, and two regions of subacute hemorrhage in the left frontal lobe parasylvian region. 2. 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 3. No acute infarct, hydrocephalus, or mass effect. 4. Multiple nonspecific hyperintense T2/FLAIR signal abnormalities in the white matter of bilateral cerebral hemispheres most likely representing severe microvascular ischemic gliosis. 5. No enhancing lesions or metastasis. 6. Right maxillary sinusitis. E:amm
[2016-11-24] MEDS ORDERED: metFORMIN HCL 850 MG TAB PO SCH (18:00)
[2016-11-24] MEDS: CARBIDOPA/LEVO CR 25 MG/100 MG TAB PO SCH ×2 (18:38→22:55)
[2016-11-24] MEDS: LOSARTAN POTASSIUM 50 MG TAB PO SCH (18:40)
--- NOTE | 2016-11-24 19:36 | NEUROPROG ---
Assessment: Attempted to see pt today but at brain MRI. Discussed case with Dr. Camejo. WIll obtain brain MRI (done and showed no acute stroke or acute changes) and begin keppra 500mg bid. 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 Will also begin Keppra for AED affect. Will see patient tomorrow morning around 7-7:30 but I expect if pt doing well tomorrow she can be discharged then. Objective: Vital Signs Temp Pulse Resp BP Pulse Ox 36.9 C 84 14 173/71 H 98 11/24/16 15:55 11/24/16 15:55 11/24/16 15:55 11/24/16 15:55 11/24/16 15:55 11/23/16 11/24/16 11/25/16 05:59 05:59 05:59 Intake Total 650 Output Total 200 Balance 450 Allergies/Adverse Reactions: vancomycin Allergy (Severe, Verified 11/04/16 13:35) Tingling of mouth/throat Anise *RETIRED-07/04/12 [Anise] Allergy (Mild, Verified 11/04/16 13:35) SICK TO STOMACH mustard [Mustard] Allergy (Mild, Verified 11/04/16 13:35) SICK TO STOMACH diphenhydramine [Diphenhydramine] Allergy (Unknown, Verified 11/04/16 13:35) aspirin [Aspirin] Allergy (Verified 11/04/16 13:35) bacitracin [From Neosporin] Allergy (Verified 11/04/16 13:35) bacitracin zinc [From Neosporin] Allergy (Verified 11/04/16 13:35) banana Allergy (Verified 11/04/16 13:35) cefaclor [From Ceclor] Allergy (Verified 11/04/16 13:35) chlorpheniramine [From Chlor-Trimeton] Allergy (Verified 11/04/16 13:35) chlorpheniramine maleate [From Co-Pyronil 2] Allergy (Verified 11/04/16 13:35) egg Allergy (Verified 11/04/16 13:35) epoetin derick [From Epogen] Allergy (Verified 11/04/16 13:35) erythromycin base [Erythromycin Base] Allergy (Verified 11/04/16 13:35) gluten Allergy (Verified 11/04/16 13:35) gramicidin D [From Neosporin] Allergy (Verified 11/04/16 13:35) iodine [Iodine] Allergy (Verified 11/04/16 13:35) levofloxacin [From Levaquin] Allergy (Verified 11/04/16 13:35) mepivacaine HCl [From Carbocaine] Allergy (Verified 11/04/16 13:35) metformin HCl [From Glucophage XR] Allergy (Verified 11/04/16 13:35) naproxen [From Naprosyn] Allergy (Verified 11/04/16 13:35) neomycin sulfate [From Neosporin] Allergy (Verified 11/04/16 13:35) omeprazole [From Prilosec] Allergy (Verified 11/04/16 13:35) omeprazole magnesium [From Prilosec] Allergy (Verified 11/04/16 13:35) Penicillins Allergy (Verified 11/04/16 13:35) phenylpropanolamine HCl [From Chlor-Trimeton] Allergy (Verified 11/04/16 13:35) polymyxin B [From Neosporin] Allergy (Verified 11/04/16 13:35) polymyxin B sulfate [From Neosporin] Allergy (Verified 11/04/16 13:35) povidone-iodine [From Betadine] Allergy (Verified 11/04/16 13:35) prazosin HCl [From Minipress] Allergy (Verified 11/04/16 13:35) procaine [Procaine] Allergy (Verified 11/04/16 13:35) procaine HCl [From Novocain] Allergy (Verified 11/04/16 13:35) pseudoephedrine HCl [From Co-Pyronil 2] Allergy (Verified 11/04/16 13:35) soap [From Betadine] Allergy (Verified 11/04/16 13:35) sulfamethoxazole [From Bactrim] Allergy (Verified 11/04/16 13:35) trimethoprim [From Bactrim] Allergy (Verified 11/04/16 13:35) hyperthyroid medications Allergy (Uncoded 11/04/16 13:34)
[2016-11-24] MEDS: levETIRAcetam 500 MG TAB PO SCH (20:06)
[2016-11-24] MEDS: CHOLECALCIFEROL VIT D3 1,000 UNITS TAB PO SCH (20:06)
[2016-11-24] MEDS ORDERED: ATORVASTATIN CALCIUM 10 MG TAB PO SCH (21:00)
[2016-11-24] MEDS ORDERED: NON-FORMULARY NEW DRUG (Simvastatin [Zocor] 20 MG) PO SCH (21:00)
[2016-11-24] MEDS ORDERED: DOXAZOSIN MESYLATE 1 MG TAB PO SCH (23:00)
[2016-11-25 04:35] LABS: % IMMATURE GRANULYOCYTES 0.6 % (0.0-1.1); ABSOLUTE IMMATURE GRANULOCYTES 0.03 10^3/uL (0.00-0.10); ADD DIFF? NO; ADD MORPH? NO; ADD SCAN? NO; ATYPICAL LYMPHOCYTE FLAG 10 (0-99); FRAGMENT RBC FLAG 0 (0-99); HEMATOCRIT 24.2 % (38.0-47.0); LEFT SHIFT FLG 0 (0-99); LIPEMIA HEMOLYSIS FLAG 80 (0-99); MEAN CELL HEMOGLOBIN 32.9 pg (27.9-34.1); MEAN CELL HEMOGLOBIN CONCENTR. 33.1 g/dL (32.4-36.7); MEAN CELL VOLUME 99.6 fL (81.5-99.8); MEAN PLATELET VOLUME 9.3 fL (8.7-11.7); PLATELET CLUMPS FLAG 0 (0-99); PLATELET COUNT 156 10^3/uL (150-400); RED BLOOD CELL COUNT 2.43 10^6/uL (4.18-5.33); RED CELL DISTRIBUTION WIDTH 14.6 % (11.5-15.2)
[2016-11-25 05:00] LABS: ALANINE AMINOTRANSFERASE 23 IU/L (9-52); ALBUMIN 2.2 g/dL (3.5-5.0); ALKALINE PHOSPHATASE 55 IU/L (38-126); ANION GAP 4 mEq/L (8-16); ASPARTATE AMINOTRANSFERASE 16 IU/L (14-46); BILIRUBIN,TOTAL 0.5 mg/dL (0.1-1.4); CALCIUM 8.2 mg/dL (8.5-10.4); CARBON DIOXIDE 26 mEq/l (22-31); CHLORIDE 109 mEq/L (97-110); CREATININE 0.8 mg/dL (0.6-1.0); GLOMERULAR FILTRATION RATE > 60; GLUCOSE 100 mg/dL (70-100); POTASSIUM 4.2 mEq/L (3.5-5.2); SODIUM 139 mEq/L (134-144)
[2016-11-25 05:10] LABS: TROPONIN I 0.035 ng/mL (0-0.034)
[2016-11-25] MEDS ORDERED: LEVOTHYROXINE 100 MCG TAB PO SCH (06:00)
[2016-11-25] MEDS ORDERED: CARBIDOPA/LEVO CR 25 MG/100 MG TAB PO SCH (07:00)
[2016-11-25] MEDS: CHOLECALCIFEROL VIT D3 1,000 UNITS TAB PO SCH (08:51)
[2016-11-25] MEDS: levETIRAcetam 500 MG TAB PO SCH (08:51)
[2016-11-25] MEDS: LOSARTAN POTASSIUM 50 MG TAB PO SCH (08:54)
[2016-11-25] MEDS ORDERED: CLOPIDOGREL BISULFATE 75 MG TAB PO SCH (09:00)
[2016-11-25] MEDS ORDERED: Herbals/Supplements -Info Only PO SCH (09:00)
[2016-11-25] MEDS ORDERED: FUROSEMIDE 40 MG TAB PO SCH (09:00)
[2016-11-25] MEDS ORDERED: COLLAGENASE 30 GM OINTMENT TP SCH (09:00)
[2016-11-25] MEDS ORDERED: MULTIVITAMINS 1 EACH TAB PO SCH (09:00)
--- NOTE | 2016-11-25 11:18 | GCON ---
[f rep st] CONSULTATION INPATIENT CONSULTATION NOTE DATE OF CONSULTATION: 11/25/2016 REFERRING PHYSICIAN: Jeffrey Camejo MD CHIEF COMPLAINT: Transient left-sided weakness and speech problems. HISTORY OF PRESENT ILLNESS: Dr. Ignacio Camejo of the hospitalist service consulted Neurology for evaluation of this patient's transient neurologic dysfunction. Results of this evaluation were placed in the EMR for review. This is an 81-year-old female with pre-existing Parkinson disease and a history of breast cancer. She also has multiple cardiovascular risk factors including hypertension, hyperlipidemia, diabetes, and coronary artery disease. She is followed by my colleague, Dr. Peter Guerrero from the outpatient neurology service. She has long-standing Parkinson disease, impaired gait, which caused a fall on October 13, 2016 where she struck her head. She was brought to the emergency room and found to have diffuse subarachnoid hemorrhage. This was treated conservatively and did not require surgery. She improved but on November 05, 2016 , she was noted to have transient left arm weakness that resolved. It is unclear why this occurred and brain MRI showed no new stroke. She was thought to possibly have had a UTI that possibly was the cause. 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 It was nonacute and it was thought maybe this exacerbated old neurologic deficits. On November 11, 2016, she had an episode of transient confusion which has also resolved. She did well until November 24, 2016. It was noted that she had developed left arm weakness and problems speaking at 8:00 a.m. She was brought to the emergency room, in which case her symptoms had all resolved other than slight dysarthria. She was admitted for further evaluation. A brain MRI was performed and showed residual subarachnoid hemorrhage that was resolving but no new stroke or acute changes. She had no problems since admission to the hospital. REVIEW OF SYSTEMS: A 10-point review of systems was negative except what was placed in HPI. PAST MEDICAL/SURGICAL HISTORY: Traumatic subarachnoid hemorrhage from a fall in September 2016, diabetes, history of breast cancer, Parkinson disease, decubitus ulcer, right cell wall seroma, aortic stenosis, hypertension, coronary artery disease, hyperlipidemia, diabetes type 2, bilateral mastectomies , cholecystectomy, umbilical hernia, transcatheter aortic valve replacement, sleep apnea. SOCIAL HISTORY: Never smoked. FAMILY HISTORY: Both parents . PHYSICAL EXAM: VITAL SIGNS: Blood pressure 184/64, heart rate 60, respirations 16, saturating 99% on room air, temperature 36.6 degrees Celsius. GENERAL: Asleep but arousable and slightly confused. EYES: Funduscopic exam could not visualize optic discs. LUNGS: Clear to auscultation bilaterally. No rhonchi or rales. HEART: Regular rhythm. No murmurs. No carotid bruits auscultated. NEUROLOGIC: Mental status: I woke her from sleep. When I examined her, she was drowsy and slightly inattentive. She knew her name but appeared to have no interest in answering a place or location question. Fund of knowledge is difficult to fully test, as well as memory. Her language appeared grossly normal. Cranial nerves: Pupils equal, round, react to light. Visual meraz full to confrontation. Extraocular muscles intact. Bilateral face intact sensation and motor movement. Hearing intact to conversation. Uvula raises symmetrically. Tongue protrudes midline. Trapezius 5/5 strength. Motor exam: She appeared to have a slight tremor in the left hand. Tone was possibly slightly increased. Strength grossly intact in arms and legs. Unfortunately, the patient would not cooperate in full in depth motor tone testing, so subtle deficits could have been missed. Sensory exam: All 4 extremities intact to light touch. Reflexes bilateral brachioradialis 2/4. Coordination bilateral hands show intact rapid alternating movements, but again, the patient would not perform any in-depth coordination testing. Gait deferred. LABS: November 05, 2016, LDL 32. November 06, 2016, HbA1c 6.1. November 24, 2016, CBC with hematocrit 27.4, chemistry glucose 196. Troponin slightly elevated at 0.037. RADIOLOGY: November 04, 2016, transthoracic echocardiogram showed no cardioembolic source of stroke. November 24, 2016, a head and neck CT angiogram was unremarkable. November 24, 2016, head CT showed a small amount of residual subarachnoid hemorrhage over the left temporal occipital region. There are no acute changes. I personally visualized the study. November 24, 2016, brain MRI, with and without contrast, shows several regions of subarachnoid hemorrhage in bilateral frontal and parietal lobes, 2 regions of subacute hemorrhage in the left frontal lobe in the perisylvian region. There is an old hemorrhagic subcentimeter infarct in the posterior right side of the mesencephalon. There is no acute infarct, hydrocephalus or mass effect. There is white matter disease noted likely from chronic microvascular disease that is severe. There are no enhancing lesions or metastasis. I personally visualized the study as well. ASSESSMENT: 1. Recurrent episodes of transient left-sided weakness and confusion. Given the patient has a recent subarachnoid hemorrhage and longstanding Parkinson disease in the setting of severe chronic microvascular disease and prior right brainstem stroke, it makes me believe she likely has dementia, either vascular or related to Parkinson disease, and is experiencing sundowning phenomenon. It is likely that her old brainstem stroke which is on the right side became symptomatic showing left-sided weakness and dysarthria transiently. When I woke her in the morning to test, she was quite confused but improved as she woke further, fully further supporting my feeling that this is likely some form of dementia with sundowning phenomenon. Another possibility is that these are focal seizures. Therefore, I will start an antiseizure medication and have her follow up in the outpatient setting, but this seems less likely at this time. The MRI excludes any new stroke or acute vascular event. 2. Recent traumatic subarachnoid hemorrhage from a fall July 14, 2016. 3. Parkinson disease. 4. History of breast cancer. 5. Cardiovascular risk factors include hypertension, hyperlipidemia, diabetes, coronary artery disease. RECOMMENDATIONS: 1. Begin Keppra 500 mg b.i.d. until outpatient followup with the Neurology Service. 2. Continue Plavix 75 mg daily for stroke prevention. 3. Blood pressure goals of 140/90. 4. LDL goal less than 70, currently 32. 5. HbA1c goal less than 7, currently 6.1. 6. Recommend outpatient followup with Dr. Peter Guerrero in the Neurology Service in 4-6 weeks. Since the patient is doing clinically well, I think she can be discharged and requires no further neurologic inpatient workup. Neurology will be happy to become re-involved if her clinical situation changes, but at this time will sign off. /[id number]/MODL MTDD
[2016-11-25] MEDS ORDERED: DOCUSATE SODIUM 100 MG CAP PO SCH (12:00)
[2016-11-25 12:28] VITALS: PULSE 64; TEMP 97.4
[2016-11-25] MEDS: CARBIDOPA/LEVO CR 25 MG/100 MG TAB PO SCH (12:30)
--- NOTE | 2016-11-25 14:13 | PDIAF ---
- Diagnosis Diagnosis: Neurologic Changes Code Status: Do Not Resuscitate - Medication Management Discharge Medications: Medications to Continue on Transfer Cholecalciferol Vit D3 [Vitamin D3 (*)] 1,000 units PO BID 10/21/16 [Last Taken 11/23/16] Multivitamins [Multivitamin (*)] 1 each PO DAILY 10/21/16 [Last Taken 11/04/16] Carbidopa/Levo Cr 25/100Mg [Sinemet CR 25/100 MG (*)] 2 tab PO TID@1200,1800, 2300 #180 tab.cr 11/17/16 [Last Taken 11/23/16] Carbidopa/Levo Cr 25/100Mg [Sinemet CR 25/100 MG (*)] 3 tab PO DAILY@07 #90 tab.cr 11/17/16 [Last Taken 11/24/16] Clopidogrel Bisulfate [Clopidogrel] 75 mg PO DAILY #30 tablet 11/17/16 [Last Taken 11/23/16] Collagenase [Santyl (*)] 1 [place] TP DAILY #1 tube 11/17/16 [Last Taken Unknown] Furosemide [Lasix 40 MG (*)] 20 mg PO DAILY #15 tab 11/17/16 [Last Taken ] Levothyroxine [Synthroid 100 mcg (*)] 100 mcg PO DAILY06 #30 tab 11/17/16 [Last Taken 11/24/16] Losartan Potassium [Cozaar 50 mg (*)] 50 mg PO DAILY #30 tab 11/17/16 [Last Taken 11/23/16] Simvastatin [Zocor] 20 mg PO HS #30 tablet 11/17/16 [Last Taken 11/23/16] metFORMIN HCL [Glucophage 850 mg (*)] 850 mg PO BIDMEAL #60 tab 11/17/16 [Last Taken 11/23/16] Acetaminophen [Tylenol 325mg (*)] 325 - 630 mg PO Q4HRS PRN 11/24/16 [Last Taken Unknown] Docusate Sodium [Colace 100 MG (*)] 300 mg PO DAILY@12 11/24/16 [Last Taken ] Doxazosin Mesylate [Cardura 1 MG (*)] 1 mg PO HS@23 11/24/16 [Last Taken ] Herbals/Supplements -Info Only 1 ea PO DAILY 11/24/16 [Last Taken Unknown] levETIRAcetam [Keppra 500 mg (*)] 500 mg PO BID #60 tab 11/25/16 [Last Taken Unknown] Discharge Medications: Refer to the Discharge Home Medication list for PRN reason. - Orders Services needed: Home Care, Registered Nurse, Certified Nurse Quality, Physical Therapy, Occupational Therapy Home Care Face to Face: I certify that this patient was under my care and that I had the required [id number] encounter meeting the encounter requirements on the discharge day. My findings support the fact that the patient is homebound as defined in CMS Chapter 7 Medicare Benefits Manual 30.1.1, The condition of the patient is such that there exists a normal inability to leave home and consequently, leaving home would require a considerable and taxing effort. Diet Texture: Regular Texture Diet, Thin Liquids, Meds Whole w/Liquids - Follow Up Care Current Providers and Referrals: Patient,NotPresent [Unknown] - As per Instructions
--- NOTE | 2016-11-25 14:37 | GDS ---
[f rep st] DISCHARGE SUMMARY DIAGNOSES: 1. Acute neurologic deficits, including left hemiparesis, dysarthria/aphasia. 2. Suspected pressure injury. 3. Hypertension. 4. Parkinson disease. 5. Diabetes mellitus type 2. 6. Suspected dementia. 7. History of breast cancer. HOSPITAL COURSE: This is an 81-year-old female with a recent history notable for fall with subarachn oid hemorrhage, nonoperative. She had been discharged to inpatient rehab and recently transitioned h ome. She re-presented with transient left-sided weakness and speech problems. She was seen by Dr. Jessica magana of Neurology. Her workup included a brain MRI, which showed resolving subarachnoid hemorrhage, o ld subcentimeter hemorrhagic infarct in the posterior right side of the mesencephalon, microvascular disease. CT angiogram of the head and neck showed no thrombus or stenosis. CT of the head, which showed nothing acute. Dr. Dudley's assessment is that this is likely unmasking o f her old brainstem stroke in the setting of dementia. He was also concerned that there may be focal seizures. Because of this, he has started Keppra. Recommends outpatient neurology followup. In terms of her CVA history, she is on Plavix and atorvastatin. She is at goal controlling all of he r risk factors and comorbidities. Her Parkinson disease is limiting. She has seen Physical Therapy, who have recommended home care. C ase Management has been in close contact with her family, who are comfortable taking her home today. She is discharged in stable condition. /[id number]/MODL
[2016-11-25 16:15] VITALS: BP 120/55; RESP 16; O2SAT 99
[2016-11-26] MEDS ORDERED: metFORMIN HCL 850 MG TAB PO SCH (15:00)
== END 2016-11-25 16:27 | disposition home health service (06) ==
LOC: EDUNIT# → INTOOBSV 10:53 → F3N 11:29
PROVIDERS: ADMIT Internal Medicine; ATTEND Internal Medicine
DX: R29.818 Other symptoms and signs involving the nervous system (principal); G81.94 Hemiplegia, unspecified affecting left nondominant side; R47.1 Dysarthria and anarthria; R47.01 Aphasia; I10 Essential (primary) hypertension; G20 Parkinson's disease; E11.9 Type 2 diabetes mellitus without complications; S06.6X0D Traumatic subarachnoid hemorrhage without loss of consciousness, subsequent encounter; W19.XXXD Unspecified fall, subsequent encounter; I25.10 Atherosclerotic heart disease of native coronary artery without angina pectoris; G47.30 Sleep apnea, unspecified; E78.5 Hyperlipidemia, unspecified; Z79.84 Long term (current) use of oral hypoglycemic drugs; Z85.3 Personal history of malignant neoplasm of breast; Z87.440 Personal history of urinary (tract) infections; Z86.73 Personal history of transient ischemic attack (TIA), and cerebral infarction without residual deficits; Z95.2 Presence of prosthetic heart valve; Z90.13 Acquired absence of bilateral breasts and nipples; Z66 Do not resuscitate
CPT/HCPCS: 70450; 70496; 70498; 70553; 92523; 92610; 93005; 97162; 97165; 99291; A9585; G0378; G8978; G8979; G8987; G8988; G8996; G8997; G8998; G9168; G9169; Q9967; 82947-QW

== ENCOUNTER 2016-12-22 19:39 | Emergency (ER) | payer OTHER ==
[2016-12-22] MEDS ORDERED: NS 1,000 ML IV ONE (19:44)
--- NOTE | 2016-12-22 19:53 | EDPHY ---
H & P Time Seen by Provider: 12/22/16 19:40 HPI/ROS: CHIEF COMPLAINT: Fall HISTORY OF PRESENT ILLNESS: Patient is an 81-year-old female who is on Coumadin who tripped and rolled down 10 steps to her basement. They were wooden steps. She has a hematoma to the front of her forehead as well as the occipital region of her head. She has a small laceration in her upper lip. She has skin tears to her left arm and mild right knee pain. She denies head neck or back pain. She is moving all extremities without difficulty. She denies fainting or chest pain or shortness of breath. REVIEW OF SYSTEMS: Constitutional: denies: chills, fever, recent illness, recent injury EENTM: denies: blurred vision, double vision, nose congestion Respiratory: denies: cough, shortness of breath Cardiac: denies: chest pain, irregular heart rate, lightheadedness, palpitations Gastrointestinal/Abdominal: denies: abdominal pain, diarrhea, nausea, vomiting, blood streaked stools Genitourinary: denies: dysuria, frequency, hematuria, pain Musculoskeletal: See HPI Skin: denies: lesions, rash, jaundice, bruising Neurological: denies: headache, numbness, paresthesia, tingling, dizziness, weakness Hematologic/Lymphatic: denies: blood clots, easy bleeding, easy bruising Immunologic/allergic: denies: HIV/AIDS, transplant Nursing assessment reviewed Vital signs reviewed normal Patient is alert not anxious or lethargic and in no distress HEAD: 3 x 3 cm hematoma to left forehead, 2 x 2 cm hematoma to occipital region with small abrasion, no laceration no raccoon eyes, no Orodñez sign. NECK: is nontender and has painless range of motion, trachea is midline, no cervical collar Nexus criteria negative EYES: pupils equal round reactive to light and accommodating, extraocular muscles are intact no palsy or entrapment, no subconjunctival hemorrhage ENT: Small 0.5 cm laceration to the mucosal aspect of her upper lip. Blood in mouth. No visible dental or tongue trauma. The patient denies having any pain in her mouth or jaw., airway intact, no dental or oral injuries, no clotted nasal blood, no septal hematoma, no hemotympanum CARDIOVASCULAR: heart sounds normal, not tachycardic or bradycardic, Chest is non-tender no rib tenderness no palpable fracture, no crepitus, no subcutaneous emphysema RESPIRATORY: no splinting, no paradoxical movements, gross sounds normal, no wheezes no rales no rhonchi, no respiratory distress ABDOMEN: Abdomen is nontender in all 4 quadrants no guarding no rebound, no distention, no hernias, no masses or bruits. GENITAL/RECTAL: Normal external inspection, Stable pelvis NEUROLOGIC/PSYCH: Oriented x3, cranial nerves normal as assessed, face symmetrical, sensation normal, motor grossly normal, not perseverating, cranial nerves II through XII intact normal reflexes [place] Coma score: 15 SKIN: Intact, warm, dry, no ecchymosis, no lacerations, nondiaphoretic. BACK: No CVA tenderness, no vertebral point tenderness, no muscle spasm normal range of motion EXTREMITIES: small Skin tear to left forearm and left Upper arm, pelvis stable , nontender no pulse deficit, normal range of motion, normal color and temperature Source: Patient Exam Limitations: No limitations - Personal History Tetanus Vaccine Date: UNKNOWN - Medical/Surgical History Hx Asthma: Yes Hx Chronic Respiratory Disease: No Hx Diabetes: Yes Hx Cardiac Disease: Yes Hx Renal Disease: No Hx Cirrhosis: No Hx Alcoholism: No Hx HIV/AIDS: No Hx Splenectomy or Spleen Trauma: No Other PMH: 1. Parkinson's. 2. Aortic stenosis. 3. Hypertension. 4. Coronary artery disease. 5. Hyperlipidemia. 6. Breast cancer. 7. DM2. Surgical history. 1. Bilateral mastectomies with recent surgery for chest wall seroma. 2. Cholecystectomy. 3. umbilical hernia. 4. Transcatherter aortic valve replacement 2015. 5. sleep apnea. - Family History Significant Family History: Hypertension - Social History Smoking Status: Never smoked Alcohol Use: Sober Drug Use: None Constitutional: Initial Vital Signs Temperature (C) 36.7 C 12/22/16 19:55 Heart Rate 72 12/22/16 19:55 Respiratory Rate 20 12/22/16 19:55 Blood Pressure 186/76 H 12/22/16 19:55 O2 Sat (%) 98 12/22/16 19:55 O2 Delivery Mode Room Air Allergies/Adverse Reactions: vancomycin Allergy (Severe, Verified 12/22/16 19:54) Tingling of mouth/throat Anise *RETIRED-07/04/12 [Anise] Allergy (Mild, Verified 12/22/16 19:54) SICK TO STOMACH mustard [Mustard] Allergy (Mild, Verified 12/22/16 19:54) SICK TO STOMACH diphenhydramine [Diphenhydramine] Allergy (Unknown, Verified 12/22/16 19:54) aspirin [Aspirin] Allergy (Verified 12/22/16 19:54) bacitracin [From Neosporin] Allergy (Verified 12/22/16 19:54) bacitracin zinc [From Neosporin] Allergy (Verified 12/22/16 19:54) banana Allergy (Verified 12/22/16 19:54) cefaclor [From Ceclor] Allergy (Verified 12/22/16 19:54) chlorpheniramine [From Chlor-Trimeton] Allergy (Verified 12/22/16 19:54) chlorpheniramine maleate [From Co-Pyronil 2] Allergy (Verified 12/22/16 19:54) egg Allergy (Verified 12/22/16 19:54) epoetin derick [From Epogen] Allergy (Verified 12/22/16 19:54) erythromycin base [Erythromycin Base] Allergy (Verified 12/22/16 19:54) gluten Allergy (Verified 12/22/16 19:54) gramicidin D [From Neosporin] Allergy (Verified 12/22/16 19:54) iodine [Iodine] Allergy (Verified 12/22/16 19:54) levofloxacin [From Levaquin] Allergy (Verified 12/22/16 19:54) mepivacaine HCl [From Carbocaine] Allergy (Verified 12/22/16 19:54) metformin HCl [From Glucophage XR] Allergy (Verified 12/22/16 19:54) naproxen [From Naprosyn] Allergy (Verified 12/22/16 19:54) neomycin sulfate [From Neosporin] Allergy (Verified 12/22/16 19:54) omeprazole [From Prilosec] Allergy (Verified 12/22/16 19:54) omeprazole magnesium [From Prilosec] Allergy (Verified 12/22/16 19:54) Penicillins Allergy (Verified 12/22/16 19:54) phenylpropanolamine HCl [From Chlor-Trimeton] Allergy (Verified 12/22/16 19:54) polymyxin B [From Neosporin] Allergy (Verified 12/22/16 19:54) polymyxin B sulfate [From Neosporin] Allergy (Verified 12/22/16 19:54) povidone-iodine [From Betadine] Allergy (Verified 12/22/16 19:54) prazosin HCl [From Minipress] Allergy (Verified 12/22/16 19:54) procaine [Procaine] Allergy (Verified 12/22/16 19:54) procaine HCl [From Novocain] Allergy (Verified 12/22/16 19:54) pseudoephedrine HCl [From Co-Pyronil 2] Allergy (Verified 12/22/16 19:54) soap [From Betadine] Allergy (Verified 12/22/16 19:54) sulfamethoxazole [From Bactrim] Allergy (Verified 12/22/16 19:54) trimethoprim [From Bactrim] Allergy (Verified 12/22/16 19:54) hyperthyroid medications Allergy (Uncoded 12/22/16 19:54) Home Medications: Medication Instructions Recorded Cholecalciferol Vit D3 [Vitamin D3 1,000 units PO BID 10/21/16 (*)] Multivitamins [Multivitamin (*)] 1 each PO DAILY 10/21/16 Carbidopa/Levo Cr 25/100Mg 2 tab PO TID@1200,1800,2300 #180 11/17/16 [Sinemet CR 25/100 MG (*)] tab.cr Carbidopa/Levo Cr 25/100Mg 3 tab PO DAILY@07 #90 tab.cr 11/17/16 [Sinemet CR 25/100 MG (*)] Clopidogrel Bisulfate [Clopidogrel] 75 mg PO DAILY #30 tablet 11/17/16 Collagenase [Santyl (*)] 1 [place] TP DAILY #1 tube 11/17/16 Furosemide [Lasix 40 MG (*)] 20 mg PO DAILY #15 tab 11/17/16 Levothyroxine [Synthroid 100 mcg 100 mcg PO DAILY06 #30 tab 11/17/16 (*)] Losartan Potassium [Cozaar 50 mg 50 mg PO DAILY #30 tab 11/17/16 (*)] Simvastatin [Zocor] 20 mg PO HS #30 tablet 11/17/16 metFORMIN HCL [Glucophage 850 mg 850 mg PO BIDMEAL #60 tab 11/17/16 (*)] Acetaminophen [Tylenol 325mg (*)] 325 - 630 mg PO Q4HRS PRN 11/24/16 Docusate Sodium [Colace 100 MG (*)] 300 mg PO DAILY@12 11/24/16 Doxazosin Mesylate [Cardura 1 MG 1 mg PO HS@23 11/24/16 (*)] Herbals/Supplements -Info Only 1 ea PO DAILY 11/24/16 levETIRAcetam [Keppra 500 mg (*)] 500 mg PO BID #60 tab 11/25/16 Medical Decision Making - Diagnostics Imaging: Results: CT scan of the head and cervical spine was obtained. The results of the study are negative. The study was read by Dr. Alek Prieto. I viewed the images myself on the PACS system. X-ray: Knee x-ray was obtained. I viewed the images myself on the PACS system. My interpretation of the images is: Possible proximal fibula fracture. The radiologist interpretation is negative. X-ray: Pelvic x-ray was obtained. I viewed the images myself on the PACS system. My interpretation of the images is: Negative . The radiologist interpretation is negative other than cortical irregularity of the greater trochanter and left. X-ray: chest x-ray was obtained. I viewed the images myself on the PACS system. My interpretation of the images is: Negative. The radiologist interpretation is negative for acute traumatic injury. ED Course/Re-evaluation: 9:30 p.m. I re-evaluated the patient. She has no pain or tenderness in her left hip. She is able to ambulate. Wounds have been cleaned and dressed. Family is at the bedside and states that she is mentating normally. There is take her home. We discussed indications for returning. Wounds have been cleaned and do not require repair. Head CT ordered in this adult patient for trauma for the following indication: Greater than 65 years old, significant fall Differential Diagnosis: Partial list of the Differential diagnosis considered include but were not limited to; head injury, neck injury laceration, skin tear, dental injury, lip injury and although unlikely based on the history and physical exam, I also considered facial fracture, spinal injury, assault, infection. I discussed these differential diagnoses and the plan with the patient as well as the usual and expected course. The patient understands that the diagnosis is provisional and that in medicine we are not always correct and that further workup is often warranted. Usual and customary warnings were given. All of the patient's questions were answered. The patient was instructed to return to the emergency department should the symptoms at all worsen or return, otherwise to followup with the physician as we discussed. - Data Points Laboratory Results: Laboratory Results 12/22/16 20:00 12/22/16 20:00 12/22/16 12/22/16 12/22/16 20:00 20:00 20:00 WBC 6.40 10^3/uL 10^3/uL (3.80-9.50) RBC 3.03 10^6/uL L 10^6/uL (4.18-5.33) Hgb 10.2 g/dL L g/dL (12.6-16.3) Hct 30.9 % L % (38.0-47.0) MCV 102.0 fL H fL (81.5-99.8) MCH 33.7 pg pg (27.9-34.1) MCHC 33.0 g/dL g/dL (32.4-36.7) RDW 14.3 % % (11.5-15.2) Plt Count 222 10^3/uL 10^3/uL (150-400) MPV 9.2 fL fL (8.7-11.7) Neut % (Auto) 69.2 % % (39.3-74.2) Lymph % (Auto) 17.2 % % (15.0-45.0) Cameron % (Auto) 7.8 % % (4.5-13.0) Eos % (Auto) 3.9 % % (0.6-7.6) Baso % (Auto) 0.8 % % (0.3-1.7) Nucleat RBC Rel Count 0.0 % % (0.0-0.2) Absolute Neuts (auto) 4.43 10^3/uL 10^3/uL (1.70-6.50) Absolute Lymphs (auto) 1.10 10^3/uL 10^3/uL (1.00-3.00) Absolute Monos (auto) 0.50 10^3/uL 10^3/uL (0.30-0.80) Absolute Eos (auto) 0.25 10^3/uL 10^3/uL (0.03-0.40) Absolute Basos (auto) 0.05 10^3/uL 10^3/uL (0.02-0.10) Absolute Nucleated RBC 0.00 10^3/uL 10^3/uL (0-0.01) Immature Gran % 1.1 % % (0.0-1.1) Immature Gran # 0.07 10^3/uL 10^3/uL (0.00-0.10) PT 13.4 SEC SEC (12.0-15.0) INR 1.03 (0.83-1.16) APTT 26.8 SEC SEC (23.0-38.0) Sodium 138 mEq/L mEq/L (134-144) Potassium 3.7 mEq/L mEq/L (3.5-5.2) Chloride 103 mEq/L mEq/L (97-110) Carbon Dioxide 26 mEq/l mEq/l (22-31) Anion Gap 9 mEq/L mEq/L (8-16) BUN 26 mg/dL H mg/dL (7-23) Creatinine 0.9 mg/dL mg/dL (0.6-1.0) Estimated GFR > 60 Glucose 112 mg/dL H mg/dL (70-100) Calcium 9.3 mg/dL mg/dL (8.5-10.4) Ethyl Alcohol < 10 mg/dL mg/dL (0-10) Medications Given: Discontinued Medications Sodium Chloride (Ns) 1,000 mls @ 0 mls/hr IV ONCE ONE PRN Reason: Wide Open Stop: 12/22/16 19:45 Last Admin: 12/22/16 20:15 Dose: 1,000 mls Departure - Departure Disposition: Home, Routine, Self-Care Clinical Impression: Skin tear, Hematoma Lip laceration Qualifiers: Encounter type: initial encounter Qualified Code(s): S01.511A - Laceration without foreign body of lip, initial encounter Fall Qualifiers: Encounter type: initial encounter Qualified Code(s): W19.XXXA - Unspecified fall, initial encounter Condition: Good Instructions: Skin Tear (ED), Hematoma (ED) Referrals: Corky Sr MD [Primary Care Provider] - As per Instructions
[2016-12-22 20:02] VITALS: RESP 20; TEMP 98.1
[2016-12-22 20:15] LABS: % IMMATURE GRANULYOCYTES 1.1 % (0.0-1.1); ABSOLUTE IMMATURE GRANULOCYTES 0.07 10^3/uL (0.00-0.10); ADD DIFF? NO; ADD MORPH? NO; ADD SCAN? NO; ATYPICAL LYMPHOCYTE FLAG 0 (0-99); FRAGMENT RBC FLAG 0 (0-99); HEMATOCRIT 30.9 % (38.0-47.0); HEMOGLOBIN 10.2 g/dL (12.6-16.3); LEFT SHIFT FLG 10 (0-99); LIPEMIA HEMOLYSIS FLAG 80 (0-99); MEAN CELL HEMOGLOBIN 33.7 pg (27.9-34.1); MEAN PLATELET VOLUME 9.2 fL (8.7-11.7); PLATELET CLUMPS FLAG 0 (0-99); PLATELET COUNT 222 10^3/uL (150-400); RED BLOOD CELL COUNT 3.03 10^6/uL (4.18-5.33); RED CELL DISTRIBUTION WIDTH 14.3 % (11.5-15.2)
[2016-12-22 20:19] LABS: INR 1.03 (0.83-1.16); PROTIME(PATIENT) 13.4 SEC (12.0-15.0)
[2016-12-22 20:20] LABS: APTT 26.8 SEC (23.0-38.0)
[2016-12-22 20:23] LABS: ANION GAP 9 mEq/L (8-16); CALCIUM 9.3 mg/dL (8.5-10.4); CARBON DIOXIDE 26 mEq/l (22-31); CHLORIDE 103 mEq/L (97-110); CREATININE 0.9 mg/dL (0.6-1.0); ETHANOL SERUM < 10 mg/dL (0-10); GLOMERULAR FILTRATION RATE > 60; GLUCOSE 112 mg/dL (70-100); POTASSIUM 3.7 mEq/L (3.5-5.2); SODIUM 138 mEq/L (134-144)
[2016-12-22 20:28] VITALS: PULSE 68
[2016-12-22 22:36] VITALS: BP 208/82; O2SAT 94
== END 2016-12-22 22:36 | disposition home or self-care (01) ==
LOC: EDUNIT#
DX: S01.511A Laceration without foreign body of lip, initial encounter (principal); I10 Essential (primary) hypertension; I25.10 Atherosclerotic heart disease of native coronary artery without angina pectoris; E11.9 Type 2 diabetes mellitus without complications; Z85.3 Personal history of malignant neoplasm of breast; W01.198A Fall on same level from slipping, tripping and stumbling with subsequent striking against other object, initial encounter; Y93.89 Activity, other specified
CPT/HCPCS: G0480

== ENCOUNTER → 2016-12-29 | Outpatient (CLI) | payer OTHER | LOC: BHFA 13:00 | PROVIDERS: ATTEND Internal Medicine Cardiovascular Disease | DX: R00.1 Bradycardia, unspecified (principal) ==

== ENCOUNTER 2017-03-12 18:02 | Emergency (ER) | payer OTHER ==
[2017-03-12 18:11] VITALS: RESP 16
--- NOTE | 2017-03-12 18:24 | EDPHY ---
H & P Smoking Status: Never smoked Time Seen by Provider: 03/12/17 18:13 HPI/ROS: CHIEF COMPLAINT: Left 5th digit injury HISTORY OF PRESENT ILLNESS: 82-year-old female with up-to-date tetanus, right- hand dominant, was using a potato slicer in accidentally sustained a skin avulsion to her left 5th digit. Occurred shortly prior to arrival. No paresthesia no sensory or motor deficit PHYSICAL EXAM (Prior to examination, patient consented to physical exam, hands were washed and my usual and customary physical exam procedures followed) 1) GENERAL: Well-developed, well-nourished, alert and oriented. Appears to be in no acute distress. 2) HEAD: Normocephalic 3) HEENT: sclera anicteric 4) LUNGS: Breathing comfortably. 5) SKIN: left 5th digit distal phalanx 1 cm x 1 cm superficial skin avulsion with slow capillary bleed 6) MUSCULOSKELETAL: no shortening no malrotation normal cascading of digit. No signs of infection. Negative kanavel. 7) NEUROLOGIC: Full sensation (Marcus,D Veena) Constitutional: Initial Vital Signs Temperature (C) 36.8 C 03/12/17 18:08 Heart Rate 81 03/12/17 18:08 Respiratory Rate 16 03/12/17 18:08 Blood Pressure 182/62 H 03/12/17 18:08 O2 Sat (%) 90 L 03/12/17 18:08 O2 Delivery Mode Room Air Allergies/Adverse Reactions: vancomycin Allergy (Severe, Verified 12/22/16 19:54) Tingling of mouth/throat Anise *RETIRED-07/04/12 [Anise] Allergy (Mild, Verified 12/22/16 19:54) SICK TO STOMACH mustard [Mustard] Allergy (Mild, Verified 12/22/16 19:54) SICK TO STOMACH diphenhydramine [Diphenhydramine] Allergy (Unknown, Verified 12/22/16 19:54) aspirin [Aspirin] Allergy (Verified 12/22/16 19:54) bacitracin [From Neosporin] Allergy (Verified 12/22/16 19:54) bacitracin zinc [From Neosporin] Allergy (Verified 12/22/16 19:54) banana Allergy (Verified 12/22/16 19:54) cefaclor [From Ceclor] Allergy (Verified 12/22/16 19:54) chlorpheniramine [From Chlor-Trimeton] Allergy (Verified 12/22/16 19:54) chlorpheniramine maleate [From Co-Pyronil 2] Allergy (Verified 12/22/16 19:54) egg Allergy (Verified 12/22/16 19:54) epoetin derick [From Epogen] Allergy (Verified 12/22/16 19:54) erythromycin base [Erythromycin Base] Allergy (Verified 12/22/16 19:54) gluten Allergy (Verified 12/22/16 19:54) gramicidin D [From Neosporin] Allergy (Verified 12/22/16 19:54) iodine [Iodine] Allergy (Verified 12/22/16 19:54) levofloxacin [From Levaquin] Allergy (Verified 12/22/16 19:54) mepivacaine HCl [From Carbocaine] Allergy (Verified 12/22/16 19:54) metformin HCl [From Glucophage XR] Allergy (Verified 12/22/16 19:54) naproxen [From Naprosyn] Allergy (Verified 12/22/16 19:54) neomycin sulfate [From Neosporin] Allergy (Verified 12/22/16 19:54) omeprazole [From Prilosec] Allergy (Verified 12/22/16 19:54) omeprazole magnesium [From Prilosec] Allergy (Verified 12/22/16 19:54) Penicillins Allergy (Verified 12/22/16 19:54) phenylpropanolamine HCl [From Chlor-Trimeton] Allergy (Verified 12/22/16 19:54) polymyxin B [From Neosporin] Allergy (Verified 12/22/16 19:54) polymyxin B sulfate [From Neosporin] Allergy (Verified 12/22/16 19:54) povidone-iodine [From Betadine] Allergy (Verified 12/22/16 19:54) prazosin HCl [From Minipress] Allergy (Verified 12/22/16 19:54) procaine [Procaine] Allergy (Verified 12/22/16 19:54) procaine HCl [From Novocain] Allergy (Verified 12/22/16 19:54) pseudoephedrine HCl [From Co-Pyronil 2] Allergy (Verified 12/22/16 19:54) soap [From Betadine] Allergy (Verified 12/22/16 19:54) sulfamethoxazole [From Bactrim] Allergy (Verified 12/22/16 19:54) trimethoprim [From Bactrim] Allergy (Verified 12/22/16 19:54) hyperthyroid medications Allergy (Uncoded 12/22/16 19:54) Home Medications: Medication Instructions Recorded Cholecalciferol Vit D3 [Vitamin D3 1,000 units PO BID 10/21/16 (*)] Multivitamins [Multivitamin (*)] 1 each PO DAILY 10/21/16 Carbidopa/Levo Cr 25/100Mg 2 tab PO TID@1200,1800,2300 #180 11/17/16 [Sinemet CR 25/100 MG (*)] tab.cr Carbidopa/Levo Cr 25/100Mg 3 tab PO DAILY@07 #90 tab.cr 11/17/16 [Sinemet CR 25/100 MG (*)] Clopidogrel Bisulfate [Clopidogrel] 75 mg PO DAILY #30 tablet 11/17/16 Collagenase [Santyl (*)] 1 [place] TP DAILY #1 tube 11/17/16 Furosemide [Lasix 40 MG (*)] 20 mg PO DAILY #15 tab 11/17/16 Levothyroxine [Synthroid 100 mcg 100 mcg PO DAILY06 #30 tab 11/17/16 (*)] Losartan Potassium [Cozaar 50 mg 50 mg PO DAILY #30 tab 11/17/16 (*)] Simvastatin [Zocor] 20 mg PO HS #30 tablet 11/17/16 metFORMIN HCL [Glucophage 850 mg 850 mg PO BIDMEAL #60 tab 11/17/16 (*)] Acetaminophen [Tylenol 325mg (*)] 325 - 630 mg PO Q4HRS PRN 11/24/16 Docusate Sodium [Colace 100 MG (*)] 300 mg PO DAILY@12 11/24/16 Doxazosin Mesylate [Cardura 1 MG 1 mg PO HS@23 11/24/16 (*)] Herbals/Supplements -Info Only 1 ea PO DAILY 11/24/16 levETIRAcetam [Keppra 500 mg (*)] 500 mg PO BID #60 tab 11/25/16 MDM/Departure - MDM Procedures: Procedure: Digital nerve block Indication: Anesthesia prior to wound cleaning and dressing Indications risks benefits discussed with patient and she consented. 1% bupivacaine without epinephrine placed by myself per usual fashion. Patient tolerated procedure well. Subsequently Surgicel dressing placed (Tamkia Velazquez) ED Course/Re-evaluation: The patient was evaluated and managed by the physician billing and accounting staff assistant. I have reviewed this chart and I agree with the findings and plan of care as documented , as indicated by my signature. I am the secondary supervising physician. ( Emi Collado) - Depart Disposition: Home, Routine, Self-Care Clinical Impression: Left finger skin avulsion Condition: Good Instructions: Skin Avulsion (ED) Additional Instructions: Return to the ER if you develop redness, swelling, discharge, warmth to the wound, red streaks going up your arm or any other symptoms that concern you. Confirm that your tetnaus vaccination is up to date with Dr Sr Referrals: Corky Sr MD [Primary Care Provider] - 5-7 days, call for appt.
[2017-03-12 19:37] VITALS: BP 151/78; PULSE 63; TEMP 97.9; O2SAT 97
== END 2017-03-12 19:37 | disposition home or self-care (01) ==
DX: S61.207A Unspecified open wound of left little finger without damage to nail, initial encounter (principal); W27.4XXA Contact with kitchen utensil, initial encounter

== ENCOUNTER 2017-05-31 12:29 | Inpatient (IN) | payer OTHER ==
--- NOTE | 2017-05-31 12:58 | EDPHY ---
H & P Time Seen by Provider: 05/31/17 12:53 HPI/ROS: Chief complaint. Confusion HPI. 82-year-old female here with her family with reports of being confused and disoriented for the past 3 days. The son feels that she may be is having visual hallucinations. Examples of her confusion include tapping a platelet breakfast and the patient says she was" playing a game". Last evening the patient said that she "saw a box around her son's head". These are not normal for her. She has had a recent decrease in her losartan but that is the only medicine change recently. She reports being cold for the last several weeks but otherwise no obvious illness. No fever. No recent injury. She did fall down the stairs in November and had a large goose egg to her head. She apparently also had a fall in September with resulting intracranial hemorrhage requiring ICU admission. The patient tells me that she has around here somewhere in response to questions location. She does say there has been a recent change in the month however when I asked her what month she tells me Wednesday and Wednesday. These are not normal per her son and ROS Constitutional. no fever/chills, no weakness Eyes. no problems with vision ENT. no sore throat, no nasal drainage Cardiovascular. no chest pain Respiratory. no shortness of breath, no cough Abdominal. no abdominal pain, no nausea/vomiting, no diarrhea . no problems urinating MS. no calf pain/swelling, no neck/back pain, no joint pain Skin. no rash Lymph. no swollen glands Neuro. Confusion Past Medical/Surgical History: Past medical history significant for Parkinson's disease, aortic stenosis, hypertension, coronary artery disease, dyslipidemia, breast cancer, diabetes, CVA, cholecystectomy aortic valve replacement 2016 Patient is on Plavix Social History: , nonsmoker, no alcohol Smoking Status: Never smoked Physical Exam: General Appearance: Alert well-developed female mild distress vital signs are stable. The patient is afebrile Eyes: Pupils equal and round no pallor or injection. ENT, Mouth: Mucous membranes are moist. Respiratory: There are no retractions, lungs are clear to auscultation. Cardiovascular: Regular rate and rhythm. 4/6 decrescendo murmur Gastrointestinal: Abdomen is soft and nontender, no masses, bowel sounds normal. Neurological: Awake and alert, sensory and motor exams grossly normal. Skin: Warm and dry, no rashes. Musculoskeletal: Neck is supple nontender. Extremities symmetrical, full range of motion. Psychiatric: Patient is oriented to person only Constitutional: Initial Vital Signs Temperature (C) 36.9 C 05/31/17 12:32 Heart Rate 67 05/31/17 12:32 Respiratory Rate 18 05/31/17 12:32 Blood Pressure 164/67 H 05/31/17 12:32 O2 Sat (%) 98 05/31/17 12:32 O2 Delivery Mode Room Air Allergies/Adverse Reactions: vancomycin Allergy (Severe, Verified 05/31/17 12:32) Tingling of mouth/throat Anise *RETIRED-07/04/12 [Anise] Allergy (Mild, Verified 05/31/17 12:32) SICK TO STOMACH mustard [Mustard] Allergy (Mild, Verified 05/31/17 12:32) SICK TO STOMACH diphenhydramine [Diphenhydramine] Allergy (Unknown, Verified 05/31/17 12:32) aspirin [Aspirin] Allergy (Verified 05/31/17 12:32) bacitracin [From Neosporin] Allergy (Verified 05/31/17 12:32) bacitracin zinc [From Neosporin] Allergy (Verified 05/31/17 12:32) banana Allergy (Verified 05/31/17 12:32) cefaclor [From Ceclor] Allergy (Verified 05/31/17 12:32) chlorpheniramine [From Chlor-Trimeton] Allergy (Verified 05/31/17 12:32) chlorpheniramine maleate [From Co-Pyronil 2] Allergy (Verified 05/31/17 12:32) egg Allergy (Verified 05/31/17 12:32) epoetin derick [From Epogen] Allergy (Verified 05/31/17 12:32) erythromycin base [Erythromycin Base] Allergy (Verified 05/31/17 12:32) gluten Allergy (Verified 05/31/17 12:32) gramicidin D [From Neosporin] Allergy (Verified 05/31/17 12:32) iodine [Iodine] Allergy (Verified 05/31/17 12:32) levofloxacin [From Levaquin] Allergy (Verified 05/31/17 12:32) mepivacaine HCl [From Carbocaine] Allergy (Verified 05/31/17 12:32) metformin HCl [From Glucophage XR] Allergy (Verified 05/31/17 12:32) naproxen [From Naprosyn] Allergy (Verified 05/31/17 12:32) neomycin sulfate [From Neosporin] Allergy (Verified 05/31/17 12:32) omeprazole [From Prilosec] Allergy (Verified 05/31/17 12:32) omeprazole magnesium [From Prilosec] Allergy (Verified 05/31/17 12:32) Penicillins Allergy (Verified 05/31/17 12:32) phenylpropanolamine HCl [From Chlor-Trimeton] Allergy (Verified 05/31/17 12:32) polymyxin B [From Neosporin] Allergy (Verified 05/31/17 12:32) polymyxin B sulfate [From Neosporin] Allergy (Verified 05/31/17 12:32) povidone-iodine [From Betadine] Allergy (Verified 05/31/17 12:32) prazosin HCl [From Minipress] Allergy (Verified 05/31/17 12:32) procaine [Procaine] Allergy (Verified 05/31/17 12:32) procaine HCl [From Novocain] Allergy (Verified 05/31/17 12:32) pseudoephedrine HCl [From Co-Pyronil 2] Allergy (Verified 05/31/17 12:32) soap [From Betadine] Allergy (Verified 05/31/17 12:32) sulfamethoxazole [From Bactrim] Allergy (Verified 05/31/17 12:32) trimethoprim [From Bactrim] Allergy (Verified 05/31/17 12:32) hyperthyroid medications Allergy (Uncoded 12/22/16 19:54) Home Medications: Medication Instructions Recorded Cholecalciferol Vit D3 [Vitamin D3 1,000 units PO BID 10/21/16 (*)] Multivitamins [Multivitamin (*)] 1 each PO DAILY 10/21/16 Carbidopa/Levo Cr 25/100Mg 2 tab PO TID@1200,1800,2300 #180 11/17/16 [Sinemet CR 25/100 MG (*)] tab.cr Carbidopa/Levo Cr 25/100Mg 3 tab PO DAILY@07 #90 tab.cr 11/17/16 [Sinemet CR 25/100 MG (*)] Clopidogrel Bisulfate [Clopidogrel] 75 mg PO DAILY #30 tablet 11/17/16 Collagenase [Santyl (*)] 1 [place] TP DAILY #1 tube 11/17/16 Furosemide [Lasix 40 MG (*)] 20 mg PO DAILY #15 tab 11/17/16 Levothyroxine [Synthroid 100 mcg 100 mcg PO DAILY06 #30 tab 11/17/16 (*)] Losartan Potassium [Cozaar 50 mg 50 mg PO DAILY #30 tab 11/17/16 (*)] Simvastatin [Zocor] 20 mg PO HS #30 tablet 11/17/16 metFORMIN HCL [Glucophage 850 mg 850 mg PO BIDMEAL #60 tab 11/17/16 (*)] Acetaminophen [Tylenol 325mg (*)] 325 - 630 mg PO Q4HRS PRN 11/24/16 Docusate Sodium [Colace 100 MG (*)] 300 mg PO DAILY@12 11/24/16 Doxazosin Mesylate [Cardura 1 MG 1 mg PO HS@23 11/24/16 (*)] Herbals/Supplements -Info Only 1 ea PO DAILY 11/24/16 levETIRAcetam [Keppra 500 mg (*)] 500 mg PO BID #60 tab 11/25/16 Medical Decision Making - Diagnostics EKG Interpretation: EKG interpreted by me shows normal sinus rhythm with normal interval. There is left axis deviation and left bundle branch block. LVH by voltage. No significant ST elevation or depression. No arrhythmia. The rate is 60. This is unchanged from previous EKG October 2016 Imaging Results: Imaging Impressions Chest X-Ray 05/31/17 13:14 Impression: 1. Stable cardiomegaly without obvious failure. Head CT 05/31/17 13:14 Impression: 1. Elderly brain with atrophy and probable white matter small vessel disease. 2. Negative for intracranial hemorrhage with resolution of previously noted bleed. 3. See above report for additional findings. Results called and discussed with MILIND SILVA M.D. on 05/31/2017 at 14:09 CT brain shows no evidence of intracranial hemorrhage or mass. This is reviewed by me and discussed with Dr. Prieto One-view chest x-ray reviewed by me shows cardiomegaly without evidence of pneumonia or congestive heart failure. Aortic valve replacement is present Procedures: IV normal saline, monitor ED Course/Re-evaluation: Re-evaluation at 2:30 p.m. and patient remains confused. She is asking her son to play with the clock that is on the wall. The patient and family and I discussed imaging and lab results. We discussed treatment plan including recommendation for admission. They expressed understanding and agreement Patient has elevated troponin but no chest discomfort I consulted and discussed the case with Dr. Maxwell, hospitalist, who agrees to the admission Differential Diagnosis: I considered intracranial bleeding, electrolyte abnormality, hypoglycemia, infection and sepsis, acute coronary syndrome - Data Points Laboratory Results: Laboratory Results 05/31/17 13:16 05/31/17 13:16 05/31/17 05/31/17 05/31/17 14:12 13:16 13:16 WBC RBC Hgb Hct MCV MCH MCHC RDW Plt Count MPV Neut % (Auto) Lymph % (Auto) Graham % (Auto) Eos % (Auto) Baso % (Auto) Nucleat RBC Rel Count Absolute Neuts (auto) Absolute Lymphs (auto) Absolute Monos (auto) Absolute Eos (auto) Absolute Basos (auto) Absolute Nucleated RBC Immature Gran % Immature Gran # PT 14.7 SEC SEC (12.0-15.0) INR 1.15 (0.83-1.16) APTT 29.4 SEC SEC (23.0-38.0) VBG Lactic Acid 0.7 mmol/L mmol/L (0.7-2.1) Sodium 134 mEq/L mEq/L (134-144) Potassium 3.4 mEq/L L mEq/L (3.5-5.2) Chloride 101 mEq/L mEq/L (97-110) Carbon Dioxide 27 mEq/l mEq/l (22-31) Anion Gap 6 mEq/L L mEq/L (8-16) BUN 28 mg/dL H mg/dL (7-23) Creatinine 1.0 mg/dL mg/dL (0.6-1.0) Estimated GFR 53 Glucose 177 mg/dL H mg/dL (70-100) Calcium 9.4 mg/dL mg/dL (8.5-10.4) Troponin I 0.174 ng/mL H ng/mL (0-0.034) NT-Pro-B Natriuret Pep 2600 pg/mL H pg/mL (0-450) 05/31/17 13:16 WBC 8.40 10^3/uL 10^3/uL (3.80-9.50) RBC 2.97 10^6/uL L 10^6/uL (4.18-5.33) Hgb 10.3 g/dL L g/dL (12.6-16.3) Hct 30.6 % L % (38.0-47.0) MCV 103.0 fL H fL (81.5-99.8) MCH 34.7 pg H pg (27.9-34.1) MCHC 33.7 g/dL g/dL (32.4-36.7) RDW 11.8 % % (11.5-15.2) Plt Count 205 10^3/uL 10^3/uL (150-400) MPV 9.5 fL fL (8.7-11.7) Neut % (Auto) 85.0 % H % (39.3-74.2) Lymph % (Auto) 6.9 % L % (15.0-45.0) Graham % (Auto) 6.0 % % (4.5-13.0) Eos % (Auto) 1.4 % % (0.6-7.6) Baso % (Auto) 0.2 % L % (0.3-1.7) Nucleat RBC Rel Count 0.0 % % (0.0-0.2) Absolute Neuts (auto) 7.14 10^3/uL H 10^3/uL (1.70-6.50) Absolute Lymphs (auto) 0.58 10^3/uL L 10^3/uL (1.00-3.00) Absolute Monos (auto) 0.50 10^3/uL 10^3/uL (0.30-0.80) Absolute Eos (auto) 0.12 10^3/uL 10^3/uL (0.03-0.40) Absolute Basos (auto) 0.02 10^3/uL 10^3/uL (0.02-0.10) Absolute Nucleated RBC 0.00 10^3/uL 10^3/uL (0-0.01) Immature Gran % 0.5 % % (0.0-1.1) Immature Gran # 0.04 10^3/uL 10^3/uL (0.00-0.10) PT INR APTT VBG Lactic Acid Sodium Potassium Chloride Carbon Dioxide Anion Gap BUN Creatinine Estimated GFR Glucose Calcium Troponin I NT-Pro-B Natriuret Pep Departure - Departure Disposition: [facility] Inpatient Acute Clinical Impression: Elevated troponin Altered mental status Qualifiers: Altered mental status type: disorientation Qualified Code(s): R41.0 - Disorientation, unspecified Condition: Fair Referrals: Corky Sr MD [Primary Care Provider] - As per Instructions
--- NOTE | 2017-05-31 13:18 | CPEKG ---
Heart Rate: 60 RR Interval: 1000 P-R Interval: 204 QRSD Interval: 166 QT Interval: 484 QTC Interval: 484 P Bivins: 54 QRS Bivins: -39 T Wave Bivins: 104 EKG Severity - ABNORMAL ECG - EKG Impression: SINUS RHYTHM EKG Impression: PROBABLE LEFT ATRIAL ABNORMALITY EKG Impression: LEFT BUNDLE BRANCH BLOCK Electronically Signed By: Chu Crawford 31-May-2017 19:00:38
[2017-05-31 13:37] LABS: % IMMATURE GRANULYOCYTES 0.5 % (0.0-1.1); ABSOLUTE IMMATURE GRANULOCYTES 0.04 10^3/uL (0.00-0.10); ADD DIFF? NO; ADD MORPH? NO; ADD SCAN? NO; ATYPICAL LYMPHOCYTE FLAG 0 (0-99); FRAGMENT RBC FLAG 0 (0-99); HEMATOCRIT 30.6 % (38.0-47.0); HEMOGLOBIN 10.3 g/dL (12.6-16.3); LEFT SHIFT FLG 0 (0-99); LIPEMIA HEMOLYSIS FLAG 80 (0-99); MEAN CELL HEMOGLOBIN 34.7 pg (27.9-34.1); MEAN CELL HEMOGLOBIN CONCENTR. 33.7 g/dL (32.4-36.7); MEAN PLATELET VOLUME 9.5 fL (8.7-11.7); PLATELET CLUMPS FLAG 10 (0-99); PLATELET COUNT 205 10^3/uL (150-400); RED BLOOD CELL COUNT 2.97 10^6/uL (4.18-5.33); RED CELL DISTRIBUTION WIDTH 11.8 % (11.5-15.2)
[2017-05-31 13:46] LABS: INR 1.15 (0.83-1.16); PROTIME(PATIENT) 14.7 SEC (12.0-15.0)
[2017-05-31 13:47] LABS: APTT 29.4 SEC (23.0-38.0)
[2017-05-31 14:16] LABS: ANION GAP 6 mEq/L (8-16); CALCIUM 9.4 mg/dL (8.5-10.4); CARBON DIOXIDE 27 mEq/l (22-31); CHLORIDE 101 mEq/L (97-110); GLOMERULAR FILTRATION RATE 53; GLUCOSE 177 mg/dL (70-100); POTASSIUM 3.4 mEq/L (3.5-5.2); SODIUM 134 mEq/L (134-144)
[2017-05-31 14:28] LABS: TROPONIN I 0.174 ng/mL (0-0.034)
[2017-05-31 15:23] LABS: COLOR YELLOW; LEUKOCYTE ESTERASE,URINE NEGATIVE (NEGATIVE); NITRITE,URINE NEGATIVE (NEGATIVE)
[2017-05-31 15:28] LABS: MUCUS TRACE /lpf (NONE-1+)
--- NOTE | 2017-05-31 16:12 | PDGENHP ---
History and Physical History and Physical: CC: Confusion HISTORY: This patient is brought to the ER today by family because of 2-3 days of worsening confusion with hallucinations. The patient herself is unable to give me any helpful history or describe how she feels in any way. Her son and with her and they described that she was doing reasonably well until about 2 weeks ago when she was having some lightheaded spells. She saw Dr. Sr who decreased her angiotensin receptor andriy medication. She seems to be doing better after that but then around 2-3 days ago started getting confused. They think she has been eating and drinking less during this period. They are not aware of her complaining of any other symptoms. The notice her balance not being as good. She has not however follow-up in the area where up. They are not aware of any nausea or vomiting, abdominal pain, change in stool or bowel function. They are not aware of anything that seemed like a fever. ROS: A comprehensive 10 system review of systems is attempted and revealed no other significant findings, but this is deemed somewhat unreliable due to the patient's inability to contribute. PAST MEDICAL HISTORY: Parkinson's disease Gait instability with falls 1 episode of traumatic intracranial hemorrhage after a fall Aortic stenosis treated by T AVR Breast cancer with bilateral mastectomies Hypertension on medications Question of possible seizure, on Keppra Hypothyroidism Asthma new Hayfever Cholecystectomy FAMILY MEDICAL HISTORY: No relevant specific illnesses obtained on family history SOCIAL HISTORY: She lives at home with her and son. No tobacco or alcohol MEDICATIONS: The patients list has been reconciled by our clinical pharmacist in the EMR. I have reviewed the list and ordered appropriate medicines. PHYSICAL EXAMINATION: Vital Signs: Some systolic hypertension otherwise normal without fever Signal Fitter: Sinus rhythm Examination: General: alert, smiling and relaxed, appears actually quite comfortable, actually a bit giddy Neurologic: Mentation shows her alert and attentive but clearly quite confused and disoriented, and with memory deficit, normal speech, normal admitting counselor, no focal weakness No Bleeding or bruising or other signs of injury Skin: warm, dry, good color, no rash HEENT: Some gingivitis, otherwise normal Neck: no mass or jvd Resps: relaxed Lungs: clear breath sounds Heart: regular, no murmur Abdomen: soft, nondistended, nontender, +BS, no mass Upper Extremities: normal Lower Extremities: Some mild pitting edema of both legs from the knees down which according to the son and is at her baseline at this time, warm A Shrestha catheter has been placed and is draining clear yellow urine in the ER IV site: looks normal LABORATORY DATA: White blood cell count normal, she has her baseline macrocytic anemia Troponin slightly elevated 0.17, BNP also elevated at 2600 Potassium slightly low BUN elevated at 28 with normal creatinine Urinalysis is no FENA calculates at 1.7% which is in the indeterminate range but not consistent with pre renal azotemia RADIOLOGY STUDIES: In the ER chest x-rays done, my personal reading: There is the T AVR in what appears to be proper position, with no signs of heart failure effusion or infiltrate. The radiologist is reading cardiomegaly but I think this is borderline at worst CT scan of head is done in the ER and this on my review of the images shows no hemorrhage or acute ischemic abnormalities no masses. 12 LEAD EKG: A 12 lead EKG is done in the ER, my interpretation shows sinus rhythm without any acute abnormalities Echocardiogram: Good LV ejection fraction, moderate MR and good function of her TAVR with no other significant changes ASSESSMENT: -ACUTE ENCEPHALOPATHY OF UNCERTAIN ETIOLOGY -BUN might suggest dehydration in the setting of poor intake; however her fractional excretion of sodium is not consistent with this and she is with chronic edema and high BNP - her poor intake may be the result of her encephalopathy instead of the cause -at this time there is no fever or specific sign of infection anywhere -she has no recent medication changes and does not have any real high risk medications on her list -she has some significant systolic hypertension, and it may be possible that the symptoms in part caused by that those blood pressures do not seem all that high -as he has was seems like advanced neurologic disease this could just be somehow progression of her Parkinson's with dementia -ELEVATED CARDIAC TROPONIN AND BNP ALONG WITH EDEMA AT HER BASELINE; NO CHEST PAIN OR SIGNS OF ISCHEMIA AT THIS TIME -I do not think this likely represents an acute cardiac syndrome but will repeat the troponins to be insure that they are not rising -POOR ORAL INTAKE FOR SEVERAL DAYS ALONG WITH ELEVATED BUN -again uncertain if this is causing her neurologic symptoms or caused by them -UNCONTROLLED SYSTOLIC HYPERTENSION ON MEDICATION FOR BLOOD PRESSURE, IN THE SETTING OF ADVANCED PARKINSON'S DISEASE AND ORTHOSTATIC SYMPTOMS AT HOME WITH HISTORY OF FALLS - it sounds like she has likely ongoing orthostasis at home causing her falls and this is likely caused by her Parkinson's disease; in most cases I would leave the blood pressure to run high but see discussion of encephalopathy above -CHRONIC UNDERLYING DEMENTIA LIKELY PRIMARILY DUE TO PARKINSON'S DISEASE Overall is hard to know what the cause of her encephalopathy at this point is. In terms of fluid lb, with a FENA of 1.7 and her edema and high BNP I will try gentle diuresis and follow closely for the result. Will need to make sure that she is getting in some food and fluid intake orally PLANS: -inpatient admission to PCU -repeat troponins -nutritional support -DVT prophylaxis -the fall risk precautions -check B12 and folate levels as well as thyroid studies I have reviewed the patient's case in detail with Dr. Chu Crawford and Dr. Jordin Tuttle I have reviewed the patient's past medical records as part of this assessment, including prior hospitalization records
--- NOTE | 2017-05-31 17:31 | ECHO ---
[id number] + + [address] : : [place] [address] : : [phone] + + Adult Echocardiographic Report + -----+ :Name: CATHRYN HARTMAN HStudy Date: 05/31/2017 04:41 PM : : Hospital Admission Number: [id number] Location : 200: :: 1935 Gender: Female Height: 63 in : :Age: 82 yrs Race: WH Weight: 120 lb : :Reason For Study: Eval LV Fx : : BSA: 1.6 meters2 : :History: TAVR, Confusion, Elevated troponins : + -----+ MMode/2D Measurements \T\ Calculations IVSd: 0.73 cm LVIDd: 5.0 cm FS: 38.7 % Ao root diam: 2.4 cm LVPWd: 0.94 cm LVIDs: 3.0 cm EDV(Teich): 115.7 ml ACS: 1.3 cm ESV(Teich): 36.0 ml EF(Teich): 68.9 % LVOT diam: 1.6 cm LVOT area: 2.0 cm2 Normal Measurement Values: + + :LVIDd (3.5-5.7cm) IVSd (0.6-1.1cm) LVPWd (0.6-1.1cm) Aortic Root (2.0-3.7cm)Left Atrium (1.5-4.0cm): :LV Vol(d) (76-115ml) LV Vol(s) (29-48ml) Ejec Fraction (50-65%)PV Carloz (0.6- 1.2m/s) TV Carloz (0.4-1.0m/s) : :MV E Carloz (0.8-1.0m/s)MV A Carloz (0.3-1.0m/s)LVOT Carloz (0.7-1.2m/s) Asc Ao Carloz ( 0.9-1.8m/s) : + + Doppler Measurements \T\ Calculations MV E max carloz: MV V2 max: MV P1/2t max carloz: Ao V2 max: 190.0 cm/sec 257.2 cm/sec 192.7 cm/sec 286.6 cm/sec MV A max carloz: MV max PG: MV P1/2t: 113.3 msec Ao max P.0 cm/sec 26.5 mmHg 32.8 mmHg MV E/A: 0.78 MV V2 mean: MVA(P1/2t): 1.9 cm2 Ao mean P.2 cm/sec MV dec slope: 18.8 mmHg MV mean P.2 cm/sec2 Ao V2 mean: 11.8 mmHg 199.4 cm/sec MV V2 VTI: Ao V2 VTI: 78.6 cm 66.8 cm MVA(VTI): JONO(I,D): 0.67 cm2 0.79 cm2 LV V1 mean PG: MR max carloz: SV(LVOT): 52.9 ml PA V2 max: 3.3 mmHg 518.2 cm/sec 123.5 cm/sec LV V1 mean: MR max PG: PA max P.0 cm/sec 107.4 mmHg 6.1 mmHg LV V1 VTI: 26.3 cm Left Ventricle The left ventricle is normal in size. There is mild concentric left ventricular hypertrophy. The left ventricular ejection fraction is normal. Ejection Fraction = 69%. No regional wall motion abnormalities noted. Right Ventricle The right ventricle is normal in size and function. Atria The left atrium is moderately dilated. Right atrial size is normal. Mitral Valve There is severe mitral annular calcification. There is no evidence of mitral valve prolapse. There is moderate mitral stenosis. There is mild mitral regurgitation. Tricuspid Valve Normal tricuspid valve. There is mild tricuspid regurgitation. Right ventricular systolic pressure is normal. Aortic Valve TAVR in the aortic position with a AV max PG of 33 mmHg and mean PG of 19 mmHg. There is no aortic insufficiency. Pulmonic Valve The pulmonic valve is normal in structure and function. There is no pulmonic valvular regurgitation. Great Vessels The aortic root is normal size. Pericardium/Pleural There is no pericardial effusion. Conclusion A complete two-dimensional transthoracic echocardiogram was performed (2D, M-mode, Doppler and color flow Doppler). There is mild concentric left ventricular hypertrophy. The left ventricular ejection fraction is normal. Ejection Fraction = 69%. No regional wall motion abnormalities noted. The right ventricle is normal in size and function. The left atrium is moderately dilated. There is severe mitral annular calcification. There is moderate mitral stenosis. There is mild mitral regurgitation. Normal tricuspid valve There is mild tricuspid regurgitation. Right ventricular systolic pressure is normal. TAVR in the aortic position with a AV max PG of 33 mmHg and mean PG of 19 mmHg. There is no pericardial effusion. Final Reading Physician: Paul Meza signed on 05/31/2017 05:30 PM Ordering Physician: Segundo Maxwell Performed By: Colton Yo, [employer]
[2017-05-31] MEDS ORDERED: COLLAGENASE 30 GM OINTMENT TP PRN (22:32)
[2017-05-31] MEDS ORDERED: ACETAMINOPHEN 325 MG TAB PO PRN (22:39)
[2017-05-31] MEDS ORDERED: ONDANSETRON 4 MG/2 ML VIAL IVP PRN (22:39)
[2017-05-31] MEDS ORDERED: NS 1,000 ML IV SCH (22:45)
[2017-05-31] MEDS: CARBIDOPA/LEVO CR 50 MG/200 MG TAB PO SCH (23:43)
[2017-06-01 01:16] LABS: FOLATE SERUM > 20.00 ng/mL (2.80 - >20.00)
[2017-06-01 04:38] LABS: % IMMATURE GRANULYOCYTES 0.3 % (0.0-1.1); ABSOLUTE IMMATURE GRANULOCYTES 0.02 10^3/uL (0.00-0.10); ADD DIFF? NO; ADD MORPH? NO; ADD SCAN? NO; ATYPICAL LYMPHOCYTE FLAG 10 (0-99); FRAGMENT RBC FLAG 0 (0-99); HEMATOCRIT 27.8 % (38.0-47.0); HEMOGLOBIN 9.5 g/dL (12.6-16.3); LEFT SHIFT FLG 0 (0-99); LIPEMIA HEMOLYSIS FLAG 90 (0-99); MEAN CELL HEMOGLOBIN 34.9 pg (27.9-34.1); MEAN CELL HEMOGLOBIN CONCENTR. 34.2 g/dL (32.4-36.7); MEAN CELL VOLUME 102.2 fL (81.5-99.8); MEAN PLATELET VOLUME 9.5 fL (8.7-11.7); PLATELET CLUMPS FLAG 0 (0-99); PLATELET COUNT 182 10^3/uL (150-400); RED BLOOD CELL COUNT 2.72 10^6/uL (4.18-5.33); RED CELL DISTRIBUTION WIDTH 11.6 % (11.5-15.2)
[2017-06-01 04:54] LABS: ANION GAP 8 mEq/L (8-16); CARBON DIOXIDE 26 mEq/l (22-31); CHLORIDE 105 mEq/L (97-110); CREATININE 0.9 mg/dL (0.6-1.0); GLOMERULAR FILTRATION RATE 60; GLUCOSE 103 mg/dL (70-100); POTASSIUM 3.6 mEq/L (3.5-5.2); SODIUM 139 mEq/L (134-144)
[2017-06-01 05:05] LABS: TROPONIN I 0.135 ng/mL (0-0.034)
[2017-06-01] MEDS ORDERED: LEVOTHYROXINE 100 MCG TAB PO SCH (06:00)
[2017-06-01] MEDS ORDERED: FUROSEMIDE 20 MG TAB PO SCH (09:00)
[2017-06-01] MEDS: CLOPIDOGREL BISULFATE 75 MG TAB PO SCH (09:37)
[2017-06-01] MEDS: ENOXAPARIN 30 MG/0.3 ML SYR SC SCH (09:37)
[2017-06-01] MEDS: levETIRAcetam 500 MG TAB PO SCH ×2 (09:37→20:29)
[2017-06-01] MEDS: ENTACAPONE 200 MG TAB PO SCH ×3 (09:37→18:24)
[2017-06-01] MEDS: MULTIVITAMINS 1 EACH TAB PO SCH (09:37)
[2017-06-01] MEDS: CARBIDOPA/LEVO CR 25 MG/100 MG TAB PO SCH (09:37)
[2017-06-01] MEDS: LOSARTAN POTASSIUM 25 MG TAB PO SCH (09:37)
[2017-06-01] MEDS: CHOLECALCIFEROL VIT D3 1,000 UNITS TAB PO SCH ×2 (09:37→20:29)
[2017-06-01] MEDS: FUROSEMIDE 20 MG/2 ML VIAL IVP SCH ×2 (09:39→15:42)
--- NOTE | 2017-06-01 11:15 | HOSPPROG ---
Hospitalist Progress Note Assessment/Plan: 82-year-old woman with a history significant for Parkinson's disease and dementia presents with 2-3 days of worsening confusion and hallucinations. Unfortunately I do not know her baseline mental function and Mary unable to tell if she has improved this morning. I attempted to call the son Dieder, her medical power of deputy county attorney and was unable to reach him. # acute encephalopathy of uncertain etiology. I suspect this likely is an exacerbation of her underlying dementia, thought secondary to Parkinson's and vascular dementia. Evaluation so far has been unremarkable. She appears to be oriented x1 I am uncertain if she is back to her baseline this morning. It appears that her social situation is concerning as her son takes care of her and her at home and her disease has been progressive. * Physical and occupational therapy * Will have case management talk with her son to make sure the home situation can provide adequate care * Consider long-term care versus skilled rehab. * Would also consider palliative care consult. # elevated troponins and BNP with baseline edema. Patient denies any chest pain. She does have a history of a TAVR, with recent angiogram showing no obstructive disease. Echocardiogram this admission shows normal left ventricular function and no wall motion abnormalities. Given her comorbidities and poor functional status as well as stability of her troponin so far, would not recommend any further evaluation of this. # hypertension in the setting of advanced Parkinson's disease with autonomic dysfunction and orthostatics symptoms. I would allow for permissive hypertension in this lady given her comorbidities and fall risk. Continue current medications # vascular dementia complicated by Parkinson's disease. # history of traumatic brain injury status post fall with resultant intraparenchymal hemorrhage. # history of recent TAVR # history of breast cancer # history of transient left-sided weakness and confusion thought to be seizure activity and started on Keppra recently. Patient with multiple comorbidities and increased confusion unclear if this is a new baseline for her dementia. She will need greater than 2 midnight stay to start sort this out and have her evaluated for possible increased level of care. Subjective: Patient new to me and chart reviewed, old chart reviewed as well. Patient knows her name but is otherwise not oriented. She has no complaints. Review of systems is not reliable. Objective: Vital Signs Temp Pulse Resp BP Pulse Ox 37.0 C 64 16 187/76 H 94 06/01/17 08:40 06/01/17 08:40 06/01/17 08:40 06/01/17 08:40 06/01/17 08:40 Laboratory Results 06/01/17 03:37 06/01/17 03:37 05/31/17 06/01/17 06/02/17 05:59 05:59 05:59 Intake Total 200 240 Output Total 1050 Balance -850 240 PT 14.7 SEC (12.0-15.0) 05/31/17 13:16 INR 1.15 (0.83-1.16) 05/31/17 13:16 - Physical Exam Constitutional: no apparent distress, not in pain, chronically ill appearing Eyes: PERRL, EOMI Ears, Nose, Mouth, Throat: moist mucous membranes Cardiovascular: regular rate and rhythym, systolic murmur Respiratory: no respiratory distress, reduced air movement, No respiratory distress Gastrointestinal: soft, non-tender abdomen Genitourinary: no bladder fullness Skin: warm Musculoskeletal: generalized weakness Neurologic: No AAOx3, No facial droop Psychiatric: poor memory ICD10 Worksheet Patient Problems: Problems Problem Status Onset Altered mental status Acute Elevated troponin Acute Acute ischemic stroke Acute Aortic sclerosis Acute Aortic stenosis Acute Breast CA Acute Decubitus ulcer of ankle, stage 2 Acute Fall Acute Fall Acute Hematoma Acute Impaired mobility and activities of daily living Acute Intracranial hemorrhage Acute Lip laceration Acute Parkinsons disease Acute Skin tear Acute TIA (transient ischemic attack) Acute
[2017-06-01] MEDS: DOCUSATE SODIUM 100 MG CAP PO SCH (14:18)
[2017-06-01] MEDS: CARBIDOPA/LEVO CR 50 MG/200 MG TAB PO SCH ×3 (14:19→23:49)
[2017-06-01] MEDS: ATORVASTATIN CALCIUM 10 MG TAB PO SCH (20:29)
[2017-06-02] MEDS: LEVOTHYROXINE 112 MCG TAB PO SCH (05:59)
[2017-06-02] MEDS ORDERED: LEVOTHYROXINE 112 MCG TAB PO SCH (06:00)
[2017-06-02] MEDS: CARBIDOPA/LEVO CR 25 MG/100 MG TAB PO SCH (08:18)
[2017-06-02] MEDS: LOSARTAN POTASSIUM 25 MG TAB PO SCH (08:18)
[2017-06-02] MEDS: levETIRAcetam 500 MG TAB PO SCH ×2 (08:18→19:31)
[2017-06-02] MEDS: CHOLECALCIFEROL VIT D3 1,000 UNITS TAB PO SCH ×2 (08:19→19:31)
[2017-06-02] MEDS: FUROSEMIDE 20 MG/2 ML VIAL IVP SCH ×2 (08:19→14:52)
[2017-06-02] MEDS: MULTIVITAMINS 1 EACH TAB PO SCH (08:19)
[2017-06-02] MEDS: ENOXAPARIN 30 MG/0.3 ML SYR SC SCH (08:19)
[2017-06-02] MEDS: CLOPIDOGREL BISULFATE 75 MG TAB PO SCH (08:19)
[2017-06-02] MEDS: ENTACAPONE 200 MG TAB PO SCH ×3 (08:19→18:24)
--- NOTE | 2017-06-02 13:43 | HOSPPROG ---
Hospitalist Progress Note Assessment/Plan: 82-year-old woman with a history significant for Parkinson's disease and dementia presents with 2-3 days of worsening confusion and hallucinations. # acute encephalopathy - suspected exacerbation of her underlying dementia- thought secondary to Parkinson's and vascular dementia. Exam yesterday patient A&O x1 - markedly improved today today A&O x3 - work up on admission negative for reversible causes including normal UA and CXR Currently her social situation is concerning as her son takes care of her and her at home and her disease has been progressive. - Physical and occupational therapy - Will have case management talk with her son to make sure the home situation can provide adequate care - Consider long-term care versus skilled rehab. # acute left foot pain- patient unable to give clear time course or memory of possible trauma- however quite tender on physical examination Foot x-ray(personally reviewed and interpreted) no acute osseous abnormality - continue to monitor exam - PT OT - p.r.n. Tylenol # elevated troponins and BNP with baseline edema. Troponin 0.17 and 0.13 on admission. Patient denies any chest pain. She does have a history of a TAVR. Recent angiogram showing no obstructive disease. Echocardiogram (reviewed) this admission shows normal left ventricular function and no WMA Oxygen saturations 94% on room air - Given her comorbidities and poor functional status agree with no further evaluation. # hypertension in the setting of advanced Parkinson's disease with autonomic dysfunction and orthostatics symptoms. Patient is high fall risk. - agree with permissive hypertension - Continue current medications # vascular dementia complicated by Parkinson's disease. # history of traumatic brain injury status post fall with resultant intraparenchymal hemorrhage. # history of recent TAVR # history of breast cancer # history of transient left-sided weakness and confusion thought to be seizure activity and started on Keppra recently. # prophylaxis- Lovenox # diet cardiac # disposition greater than 2 midnights as safe discharge planning is necessary with coordination of therapies and case management Have discussed the case with the RN- we will obtain plain film imaging of the left foot to rule out possible occult fracture Subjective: Reporting discomfort of the left foot Objective: Vital Signs Temp Pulse Resp BP Pulse Ox 36.5 C 74 18 128/50 H 92 06/02/17 11:34 06/02/17 11:34 06/02/17 11:34 06/02/17 11:34 06/02/17 11:34 Laboratory Results 06/01/17 03:37 06/01/17 03:37 06/01/17 06/02/17 06/03/17 05:59 05:59 05:59 Intake Total 200 1100 300 Output Total 1050 700 Balance -850 400 300 PT 14.7 SEC (12.0-15.0) 05/31/17 13:16 INR 1.15 (0.83-1.16) 05/31/17 13:16 - Physical Exam Constitutional: appears nourished Eyes: anicteric sclera Ears, Nose, Mouth, Throat: moist mucous membranes Cardiovascular: regular rate and rhythym, systolic murmur Respiratory: no respiratory distress Gastrointestinal: normoactive bowel sounds, soft, non-tender abdomen Genitourinary: no bladder fullness Skin: warm, normal color Musculoskeletal: other (Tenderness of the entire left foot on palpation with active and passive range of motion) Neurologic: AAOx3 Psychiatric: interacting appropriately, poor insight, poor memory Lymph, Heme, Immunologic: no cervical LAD ICD10 Worksheet Patient Problems: Problems Problem Status Onset Altered mental status Acute Elevated troponin Acute Acute ischemic stroke Acute Aortic sclerosis Acute Aortic stenosis Acute Breast CA Acute Decubitus ulcer of ankle, stage 2 Acute Fall Acute Fall Acute Hematoma Acute Impaired mobility and activities of daily living Acute Intracranial hemorrhage Acute Lip laceration Acute Parkinsons disease Acute Skin tear Acute TIA (transient ischemic attack) Acute
[2017-06-02] MEDS: DOCUSATE SODIUM 100 MG CAP PO SCH (13:52)
[2017-06-02] MEDS: CARBIDOPA/LEVO CR 50 MG/200 MG TAB PO SCH ×3 (13:52→23:25)
[2017-06-02] MEDS: ATORVASTATIN CALCIUM 10 MG TAB PO SCH (19:31)
[2017-06-03] MEDS: LEVOTHYROXINE 112 MCG TAB PO SCH (05:16)
[2017-06-03 08:41] VITALS: RESP 18
[2017-06-03] MEDS: CLOPIDOGREL BISULFATE 75 MG TAB PO SCH (08:51)
[2017-06-03] MEDS: MULTIVITAMINS 1 EACH TAB PO SCH (08:51)
[2017-06-03] MEDS: CHOLECALCIFEROL VIT D3 1,000 UNITS TAB PO SCH (08:52)
[2017-06-03] MEDS: levETIRAcetam 500 MG TAB PO SCH (08:52)
[2017-06-03] MEDS: ENOXAPARIN 30 MG/0.3 ML SYR SC SCH (08:52)
[2017-06-03] MEDS: CARBIDOPA/LEVO CR 25 MG/100 MG TAB PO SCH (08:52)
[2017-06-03] MEDS: LOSARTAN POTASSIUM 25 MG TAB PO SCH (08:52)
[2017-06-03] MEDS: ENTACAPONE 200 MG TAB PO SCH ×2 (08:52→12:28)
[2017-06-03] MEDS ORDERED: FUROSEMIDE 20 MG TAB PO SCH (09:00)
[2017-06-03 11:09] VITALS: BP 135/54; PULSE 64; TEMP 97.7; O2SAT 96
[2017-06-03] MEDS: CARBIDOPA/LEVO CR 50 MG/200 MG TAB PO SCH (12:28)
[2017-06-03] MEDS: DOCUSATE SODIUM 100 MG CAP PO SCH (12:29)
--- NOTE | 2017-06-03 13:09 | PDIAF ---
- Diagnosis Diagnosis: dementia Code Status: Do Not Resuscitate - Medication Management Discharge Medications: Medications to Continue on Transfer Cholecalciferol Vit D3 [Vitamin D3 (*)] 1,000 units PO BID 10/21/16 [Last Taken 05/31/17] Multivitamins [Multivitamin (*)] 1 each PO DAILY 10/21/16 [Last Taken 05/30/17] Clopidogrel Bisulfate [Clopidogrel] 75 mg PO DAILY #30 tablet 11/17/16 [Last Taken 05/31/17] Furosemide [Lasix 40 MG (*)] 20 mg PO DAILY #15 tab 11/17/16 [Last Taken ] Levothyroxine [Synthroid 100 mcg (*)] 100 mcg PO DAILY06 #30 tab 11/17/16 [Last Taken 05/30/17] Simvastatin [Zocor] 20 mg PO HS #30 tablet 11/17/16 [Last Taken 05/30/17] Acetaminophen [Tylenol 325mg (*)] 325 - 650 mg PO Q4HRS PRN 11/24/16 [Last Taken 05/29/17] Docusate Sodium [Colace 100 MG (*)] 300 mg PO DAILY@12 11/24/16 [Last Taken 04/10] Herbals/Supplements -Info Only 1 ea PO DAILY 11/24/16 [Last Taken Unknown] levETIRAcetam [Keppra 500 mg (*)] 500 mg PO BID #60 tab 11/25/16 [Last Taken 05/10] Carbidopa/Levo Cr 25/100Mg [Sinemet CR 25/100 MG (*)] 2 tab PO TID@1200,1800, 0000 05/31/17 [Last Taken 05/31/17] Carbidopa/Levo Cr 25/100Mg [Sinemet CR 25/100 MG (*)] 3 tab PO DAILY@0700 [Last Taken 05/31/17] Collagenase [Santyl (*)] 1 [place] TP DAILY PRN 05/31/17 [Last Taken Unknown] Entacapone [Comtan] 200 mg PO TID@0700,1200,1800 05/31/17 [Last Taken 05/31/17] Levothyroxine [Synthroid 112 mcg (*)] 112 mcg PO DAILY06 08/07/17 [Last Taken ] Losartan Potassium [Cozaar 50 mg (*)] 25 mg PO DAILY 05/31/17 [Last Taken ] Discharge Medications: Refer to the Discharge Home Medication list for PRN reason. - Orders Services needed: Home Care, Registered Nurse, Physical Therapy, Occupational Therapy Home Care Face to Face: I certify that this patient was under my care and that I had the required [id number] encounter meeting the encounter requirements on the discharge day. My findings support the fact that the patient is homebound as defined in CMS Chapter 7 Medicare Benefits Manual 30.1.1, The condition of the patient is such that there exists a normal inability to leave home and consequently, leaving home would require a considerable and taxing effort. Diet Recommendation: no restrictions on diet Diet Texture: Regular Texture Diet - Follow Up Care Current Providers and Referrals: Corky Sr MD [Primary Care Provider] - As per Instructions
--- NOTE | 2017-06-03 14:49 | GDS ---
[f rep st] DISCHARGE SUMMARY DISCHARGE DIAGNOSES: Include: 1. Acute encephalopathy thought secondary to progressive/exacerbation of dementia. 2. Parkinson's. 3. Hypertension. 4. Vascular dementia. 5. History of traumatic brain injury. 6. History of transcatheter aortic valve replacement. 7. History of breast cancer. HISTORY OF PRESENT ILLNESS: This is an 82-year-old female with a history of known vascular dementia and Parkinson's who presents with acute confusion. For details of patient's initial presentation, please see the history and physical dated 05/31/2017. CONSULTATIVE SERVICES: None. PROCEDURES: On 05/31/2017, patient had a CT of the head that showed elderly brain with no acute fin dings. HOSPITAL COURSE BY ISSUE: 1. Acute encephalopathy. The patient received supportive care only, had acute causes of encephalop athy ruled out with infectious and metabolic workup. Patient had improvement in her mentation over the course of the first 48 hours of her stay, which, based on family report, has returned to her [facility]. After extensive discussions with case management and the therapies, the family has decided t o bring the patient back home where they feel they can provide her adequate support in an environmen t that she prefers. Patient will be discharged home with home health, PT, OT, on her normal medicat ions for Parkinson's and dementia. 2. Parkinson's. Patient was seen by PT during this hospital stay, continued on her home carbidopa levodopa without change. She is ambulating with mild assist and a walker on the day of disposition. 3. Hypothyroidism. Patient was continued on her levothyroxine. 4. Hypertension. Patient did have fluctuating blood pressures during this hospital stay ranging in the 130s to 150s. We did feel this was an adequate control range in this elderly patient at risk f or falls. She will be discharged on her home medications without alteration. 5. Indeterminate troponin. Patient was noted to have a slightly elevated troponin on admission. S he never presented with complaints of chest pain. It was felt, due to her many comorbidities, that additional workup at this time without symptoms was not in her best interest. She was monitored on telemetry for the first 24 hours of her stay without any abnormalities. Her troponins did level out at 0.17 and 0.13. MEDICATIONS AT THE TIME OF DISPOSITION: Please reference med rec printed on 06/03/2017. FOLLOWUP APPOINTMENTS: Include with her outpatient primary care provider as needed for long-term ma nagement of her medical comorbidities. Patient is being discharged with home health, PT, OT. I spe nt greater than 30 minutes in the planning and coordination of this discharge. /[id number]/MODL
== END 2017-06-03 14:31 | disposition home health service (06) | DRG 884 ==
LOC: F2W 15:40
PROVIDERS: ADMIT Internal Medicine; ATTEND Hospitalist
DX: F01.50 Vascular dementia, unspecified severity, without behavioral disturbance, psychotic disturbance, mood disturbance, and anxiety (principal); F02.80 Dementia in other diseases classified elsewhere, unspecified severity, without behavioral disturbance, psychotic disturbance, mood disturbance, and anxiety; G31.83 Neurocognitive disorder with Lewy bodies; I10 Essential (primary) hypertension; E03.9 Hypothyroidism, unspecified; E78.5 Hyperlipidemia, unspecified; M79.672 Pain in left foot; Z87.820 Personal history of traumatic brain injury; Z95.2 Presence of prosthetic heart valve; Z85.3 Personal history of malignant neoplasm of breast; Z90.10 Acquired absence of unspecified breast and nipple; Z79.02 Long term (current) use of antithrombotics/antiplatelets
CPT/HCPCS: 82607-90; 84481-90; 96374; 97116-GP; 97162-GP; 97165-GO; G8978-GP-CJ; G8979-GP-CI; G8987-GO-CK; G8988-GO-CK; J1650; J1940

== ENCOUNTER → 2017-10-15 | Outpatient (CLI) | payer OTHER ==
[~2017-10-15] MED LIST: IOPAMIDOL (ISOVUE-300) 100 ML BTL ONE
== END ==
LOC: FIMAGING 13:31
PROVIDERS: ATTEND Internal Medicine
DX: N28.89 Other specified disorders of kidney and ureter (principal); N28.1 Cyst of kidney, acquired; K76.89 Other specified diseases of liver; M51.36 Other intervertebral disc degeneration, lumbar region
CPT/HCPCS: 74178; Q9967